=== PATIENT | male | born 1955 | race Caucasian/White ===

== ENCOUNTER 2020-04-29 20:23 | Emergency (ER) | payer MEDICARE, BC ==
[2020-04-29 20:36] VITALS: BP 162/86; PULSE 120
--- NOTE | 2020-04-29 20:53 | EDM.PDOC ---
ED HPI GENERAL MEDICAL PROBLEM - General Chief Complaint: Fever Stated Complaint: FEVER SHAKEY COLD Time Seen by Provider: 04/29/20 20:47 Source of Information: Reports: Patient History Limitations: Reports: No Limitations - History of Present Illness INITIAL COMMENTS - FREE TEXT/NARRATIVE: 65-year-old male presents to the ED with acute onset of fever chills with rigors darting about 1600 hrs. today and occurring just before coming into the ED once again. Associated development of high fever greater than 101.5 degrees at home. He has had Tylenol once today about noon hour. History suggest that he is currently being treated for a lymphoma. Apparently it is in his brain. Most of the history was gleaned from his who was in the car in the parking lot. Patient states that he cannot remember all of the big fancy medical words. History suggest that he has had 2 courses of methotrexate intravenously while in hospital at [facility] over the last month. On the last occasion he spent 14 days in hospital because of development of severe pancytopenia. This unclear if he developed any sepsis at that time. It is unclear if he was treated with antibiotics or not. We will obtain records from [facility] in [place]. His oncologist is Dr. Mccabe. Patient denies any cough or sputum production. He states his throat is mildly dry but not sore. Benign abdominal examination. Denies any dysuria urgency or frequency. Denies any diarrhea. Appetite remains fair. It is unclear when he was released from [facility] in [place] but it sounds like within the last week. She reports most of his treatments were carried out in [facility] in [place]. He is most least recent treatment was at [facility] I believe that April 23. Onset: Today, Sudden Onset Date: 04/29/20 Onset Time: 16:00 (New onset of chills/rigors with spiking a fever afterwards.) Duration: Hour(s):, Getting Worse, Recurring Location: Reports: Generalized (New onset of chills/rigors associated with a temperature greater than 101.5. Patient has been recently hospitalized at [facility] for about 2 weeks. Apparently he developed methotrexate induced pancytopenia.) Quality: Reports: Other Severity: Moderate (Feels a little weak.) Improves with: Reports: None Worsens with: Reports: None Context: Reports: Other (Early receiving methotrexate therapy for lymphoma in his brain. Most likely this is a non-Hodgkin's lymphoma.). Denies: Activity, Exercise, Lifting, Sick Contact, Trauma Associated Symptoms: Reports: Confusion (Mildly confused about dates times of treatment when he was last hospitalized), Fever/Chills (1600 hrs. today.), Malaise, Weakness. Denies: Chest Pain ( and states he cannot member what kind of cancer he has.), Cough, cough w sputum, Diaphoresis, Loss of Appetite, Nausea/Vomiting, Rash, Seizure, Shortness of Breath, Syncope Treatments DIESEL ELECTRICIAN: Reports: Acetaminophen, Other (see below) Other Treatments DIESEL ELECTRICIAN: tylenol at noon Headache Pain Score (Numeric/FACES): 4 - Related Data Allergies Allergy/AdvReac Type Severity Reaction Status Date / Time No Known Allergies Allergy Verified 11/05/14 17:17 Home Meds: Home Meds Multivit-Min/FA/Lycopene/Lut [Centrum Silver] 1 tab PO DAILY 11/05/14 [History] Omeprazole Magnesium [Prilosec Otc] 20 mg PO DAILY 11/05/14 [History] levoFLOXacin [Levaquin] 500 mg PO DAILY #9 tab 04/29/20 [Rx] Past Medical History - Past Health History Medical/Surgical History: Denies Medical/Surgical History Gastrointestinal History: Reports: Cirrhosis (Alcohol induced cirrhosis of the liver.), GERD Oncologic (Cancer) History: Reports: Other (See Below) (Patient has a large B cell lymphoma. Initially in January he had involvement of the meninges of it around his brain. Apparently he also has retroperitoneal adenopathy. He apparently has had a biopsy of periaortic lymph nodes to confirm diagnosis of B- cell lymphoma. Started chemotherapy in early March 2020) Social & Family History - Tobacco Use Smoking Status *Q: Never Smoker - Caffeine Use Caffeine Use: Reports: Soda - Recreational Drug Use Recreational Drug Use: No - Living Situation & Occupation Living situation: Reports: Occupation: Retired ED ROS GENERAL - Review of Systems Review Of Systems: See Below Constitutional: Reports: Fever, Chills, Malaise, Weakness, Fatigue, Decreased Appetite, Weight Loss HEENT: Reports: Glasses Respiratory: Denies: Shortness of Breath (For reading.), Wheezing, Pleuritic Chest Pain, Cough, Sputum Cardiovascular: Denies: Chest Pain, Blood Pressure Problem, Dyspnea on Exertion, Edema, Lightheadedness, Palpitations Endocrine: Reports: Fatigue GI/Abdominal: Reports: Decreased Appetite. Denies: Constipation, Diarrhea, Distension (Is a decreased appetite today. Up until today has been good.), Flatus, Hematemesis, Hematochezia, Melena, Stool Incontinence, Vomiting, Other : Reports: No Symptoms Musculoskeletal: Reports: No Symptoms Skin: Reports: No Symptoms Neurological: Reports: No Symptoms Psychiatric: Reports: No Symptoms Hematologic/Lymphatic: Reports: No Symptoms Immunologic: Reports: No Symptoms ED EXAM, SEPSIS - Physical Exam Exam: See Below Exam Limited By: Other General Appearance: Alert, WD/WN, No Apparent Distress, Other (Patient does feel very warm to palpation. Measured temperature is 38.5 C. Heart rate at the bedside is 120. Respiratory to 30 with O2 sat of 100%. BP is 1 6286.). No: Anxious, Lethargic, Obtunded, Moderate Distress, Severe Distress, Obese, Thin Eye Exam: Bilateral Eye: Normal Inspection, PERRL (No scleral icterus or blepharal pallor appreciated.) Ears: Normal TMs Throat/Mouth: Normal Inspection, Normal Lips, Normal Teeth, Normal Oropharynx Head: Atraumatic, Normocephalic Neck: Normal Inspection, Supple, Non-Tender, Full Range of Motion. No: Lymphadenopathy (L), Lymphadenopathy (R), Thyromegaly Respiratory/Chest: Lungs Clear (Tachypnea at rest 30/min. O2 sats are maintained at 100% on room air.), Respiratory Distress, Decreased Breath Sounds Cardiovascular: Normal Peripheral Pulses, Regular Rate, Rhythm, No Edema, No Gallop, No Murmur, No Rub Peripheral Pulses: 3+: Carotid (L), Carotid (R), Posterior Tibial (L), Posterior Tibial (R), Dorsalis Pedis (L), Dorsalis Pedis (R) GI/Abdominal Exam: Normal Bowel Sounds, Soft, Non-Tender, No Organomegaly, No Abnormal Bruit, No Mass, Pelvis Stable, Other (Patient has evidence of a recent laparoscopic surgery. He indicates that he had retroperitoneal lymph node biopsy carried out within the last 6 to 8 weeks.). No: Guarding, Rigid, Rebound, Tender, Hepatomegaly, Splenomegaly Back: Normal Inspection, Full Range of Motion. No: CVA Tenderness (L), CVA T enderness (R) Extremities: Normal Inspection, Normal Range of Motion, Non-Tender, No Pedal Edema, Other (Patient has a PICC line medial aspect of his right arm. The site looks clean without any signs of cellulitis at insertion of the needle site.) Neurological: Alert, Oriented, CN II-XII Intact, Normal Cognition, No Motor/Sensory Deficits Psychiatric: Normal Affect, Normal Mood, Other (Pleasant gentleman. He is just forgetful about everything that has happened to him over the last several weeks due to severe illness with pancytopenia and) Skin: Warm ( prolonged hospitalization.), Dry, Intact, Normal Color, No Rash EKG INTERPRETATION EKG Date: 04/29/20 Time: 21:10 Rhythm: Other Rate (Beats/Min): 114 Fraser: LAD-Left Fraser Deviation (Left axis deviation of -27 degrees.) P-Wave: Present QRS: Other (There is early R wave transition consider right ventricular hypertrophy/septal hypertrophy pattern. Tall R waves in lead I suggest left ventricular hypertrophy.) ST-T: Other (T wave inversion 3 which can be normal and flattening in aVF which is nonspecific.) QT: Prolonged (Mildly prolonged.) Course - Vital Signs Last Recorded V/S: Last Vital Signs Temp 38.0 C 04/29/20 21:23 Pulse 120 H 04/29/20 20:34 Resp 30 H 04/29/20 20:34 BP 162/86 H 04/29/20 20:34 Pulse Ox 100 04/29/20 20:34 - Orders/Labs/Meds Orders: Active Orders 24 hr Category Date Time Status EKG Documentation Completion [RC] STAT Care 04/29/20 20:56 Active CULTURE BLOOD [BC] Stat Lab 04/29/20 21:15 Received CULTURE BLOOD [BC] Stat Lab 04/29/20 21:28 Received CULTURE URINE [RM] Stat Lab 04/29/20 21:30 Received Dextrose 5%-0.9% NaCl [Dextrose 5%-Normal Saline] 1,000 Med 04/29/20 21:00 Active ml IV ASDIRECTED Blood Culture x2 Reflex Set [OM.PC] Stat Oth 04/29/20 20:57 Ordered Medication Orders Dextrose/Sodium Chloride (Dextrose 5%-Normal Saline) 1,000 mls @ 500 mls/hr IV ASDIRECTED CHRISTA Last Admin: 04/29/20 21:24 Dose: 500 mls/hr Documented by: PUJA Labs: Laboratory Tests 04/29/20 04/29/20 04/29/20 Range/Units 21:15 21:15 21:15 WBC 2.08 L* (4.23-9.07) K/mm3 RBC 2.70 L (4.63-6.08) M/mm3 Hgb 8.8 L D (13.7-17.5) gm/dl Hct 26.2 L (40.1-51.0) % MCV 97.0 H (79.0-92.2) fl MCH 32.6 H (25.7-32.2) pg MCHC 33.6 (32.2-35.5) g/dl RDW Std Deviation 50.0 H (35.1-43.9) fL Plt Count 31 L (163-337) K/mm3 MPV 11.7 (9.4-12.3) fl Neutrophils % (Manual) 98 H (40-60) % Band Neutrophils % 0 (0-10) % Lymphocytes % (Manual) 2 L (20-40) % Atypical Lymphs % 0 % Monocytes % (Manual) 0 L (2-10) % Eosinophils % (Manual) 0 L (0.8-7.0) % Basophils % (Manual) 0 L (0.2-1.2) Toxic Granulation 3+ marked Platelet Estimate Marked dec Plt Morphology Comment Normal Hypochromasia 1+ slight Anisocytosis 1+ slight RBC Morph Comment Not Reportable ESR (0-15) mm/hr PT 13.8 H (9.7-11.7) SECONDS INR 1.30 APTT 29 (22-31) SECONDS D-Dimer, Quantitative (0.19-0.50) mg/L Sodium 138 (136-145) mEq/L Potassium 3.2 L (3.5-5.1) mEq/L Chloride 105 (98-107) mEq/L Carbon Dioxide 22 (21-32) mEq/L Anion Gap 14.2 (5-15) BUN 22 H (7-18) mg/dL Creatinine 1.0 (0.7-1.3) mg/dL Est Cr Clr Drug Dosing 74.01 mL/min Estimated GFR (MDRD) > 60 (>60) mL/min BUN/Creatinine Ratio 22.0 H (14-18) Glucose 108 (80-115) mg/dL Lactic Acid (0.4-2.0) mmol/L Uric Acid (3.5-7.2) mg/dL Calcium 7.9 L (8.5-10.1) mg/dL Magnesium 1.7 L (1.8-2.4) mg/dl Ferritin (26-388) ng/ml Total Bilirubin 1.3 H (0.2-1.0) mg/dL AST 26 (15-37) U/L ALT 20 (16-63) U/L Alkaline Phosphatase 92 (46-116) U/L Lactate Dehydrogenase 266 H (85-227) U/L Troponin I 0.019 (0.00-0.056) ng/mL C-Reactive Protein 6.5 H* (<1.0) mg/dL NT-Pro-B Natriuret Pep (0-125) pg/mL Total Protein 6.0 L (6.4-8.2) g/dl Albumin 2.8 L (3.4-5.0) g/dl Globulin 3.2 gm/dL Albumin/Globulin Ratio 0.9 L (1-2) Urine Color (Yellow) Urine Appearance (Clear) Urine pH (5.0-8.0) Ur Specific Mclain (1.005-1.030) Urine Protein (Negative) Urine Glucose (UA) (Negative) Urine Ketones (Negative) Urine Occult Blood (Negative) Urine Nitrite (Negative) Urine Bilirubin (Negative) Urine Urobilinogen (0.2-1.0) Ur Leukocyte Esterase (Negative) U Hyaline Cast (Auto) (0-5) /lpf Urine RBC (0-5) /hpf Urine WBC (0-5) /hpf Ur Epithelial Cells (0-5) /hpf Urine Bacteria (FEW) /hpf Urine Mucus (FEW) /hpf SARS-CoV-2 RNA (FELICITY) (NEGATIVE) 04/29/20 04/29/20 04/29/20 Range/Units 21:15 21:15 21:15 WBC (4.23-9.07) K/mm3 RBC (4.63-6.08) M/mm3 Hgb (13.7-17.5) gm/dl Hct (40.1-51.0) % MCV (79.0-92.2) fl MCH (25.7-32.2) pg MCHC (32.2-35.5) g/dl RDW Std Deviation (35.1-43.9) fL Plt Count (163-337) K/mm3 MPV (9.4-12.3) fl Neutrophils % (Manual) (40-60) % Band Neutrophils % (0-10) % Lymphocytes % (Manual) (20-40) % Atypical Lymphs % % Monocytes % (Manual) (2-10) % Eosinophils % (Manual) (0.8-7.0) % Basophils % (Manual) (0.2-1.2) Toxic Granulation Platelet Estimate Plt Morphology Comment Hypochromasia Anisocytosis RBC Morph Comment ESR (0-15) mm/hr PT (9.7-11.7) SECONDS INR APTT (22-31) SECONDS D-Dimer, Quantitative 5.12 H (0.19-0.50) mg/L Sodium (136-145) mEq/L Potassium (3.5-5.1) mEq/L Chloride (98-107) mEq/L Carbon Dioxide (21-32) mEq/L Anion Gap (5-15) BUN (7-18) mg/dL Creatinine (0.7-1.3) mg/dL Est Cr Clr Drug Dosing mL/min Estimated GFR (MDRD) (>60) mL/min BUN/Creatinine Ratio (14-18) Glucose (80-115) mg/dL Lactic Acid 1.7 (0.4-2.0) mmol/L Uric Acid (3.5-7.2) mg/dL Calcium (8.5-10.1) mg/dL Magnesium (1.8-2.4) mg/dl Ferritin 984 H (26-388) ng/ml Total Bilirubin (0.2-1.0) mg/dL AST (15-37) U/L ALT (16-63) U/L Alkaline Phosphatase (46-116) U/L Lactate Dehydrogenase (85-227) U/L Troponin I (0.00-0.056) ng/mL C-Reactive Protein (<1.0) mg/dL NT-Pro-B Natriuret Pep (0-125) pg/mL Total Protein (6.4-8.2) g/dl Albumin (3.4-5.0) g/dl Globulin gm/dL Albumin/Globulin Ratio (1-2) Urine Color (Yellow) Urine Appearance (Clear) Urine pH (5.0-8.0) Ur Specific Mclain (1.005-1.030) Urine Protein (Negative) Urine Glucose (UA) (Negative) Urine Ketones (Negative) Urine Occult Blood (Negative) Urine Nitrite (Negative) Urine Bilirubin (Negative) Urine Urobilinogen (0.2-1.0) Ur Leukocyte Esterase (Negative) U Hyaline Cast (Auto) (0-5) /lpf Urine RBC (0-5) /hpf Urine WBC (0-5) /hpf Ur Epithelial Cells (0-5) /hpf Urine Bacteria (FEW) /hpf Urine Mucus (FEW) /hpf SARS-CoV-2 RNA (FELICITY) (NEGATIVE) 04/29/20 04/29/20 04/29/20 Range/Units 21:15 21:15 21:15 WBC (4.23-9.07) K/mm3 RBC (4.63-6.08) M/mm3 Hgb (13.7-17.5) gm/dl Hct (40.1-51.0) % MCV (79.0-92.2) fl MCH (25.7-32.2) pg MCHC (32.2-35.5) g/dl RDW Std Deviation (35.1-43.9) fL Plt Count (163-337) K/mm3 MPV (9.4-12.3) fl Neutrophils % (Manual) (40-60) % Band Neutrophils % (0-10) % Lymphocytes % (Manual) (20-40) % Atypical Lymphs % % Monocytes % (Manual) (2-10) % Eosinophils % (Manual) (0.8-7.0) % Basophils % (Manual) (0.2-1.2) Toxic Granulation Platelet Estimate Plt Morphology Comment Hypochromasia Anisocytosis RBC Morph Comment ESR 18 H (0-15) mm/hr PT (9.7-11.7) SECONDS INR APTT (22-31) SECONDS D-Dimer, Quantitative (0.19-0.50) mg/L Sodium (136-145) mEq/L Potassium (3.5-5.1) mEq/L Chloride (98-107) mEq/L Carbon Dioxide (21-32) mEq/L Anion Gap (5-15) BUN (7-18) mg/dL Creatinine (0.7-1.3) mg/dL Est Cr Clr Drug Dosing mL/min Estimated GFR (MDRD) (>60) mL/min BUN/Creatinine Ratio (14-18) Glucose (80-115) mg/dL Lactic Acid (0.4-2.0) mmol/L Uric Acid 3.7 (3.5-7.2) mg/dL Calcium (8.5-10.1) mg/dL Magnesium (1.8-2.4) mg/dl Ferritin (26-388) ng/ml Total Bilirubin (0.2-1.0) mg/dL AST (15-37) U/L ALT (16-63) U/L Alkaline Phosphatase (46-116) U/L Lactate Dehydrogenase (85-227) U/L Troponin I (0.00-0.056) ng/mL C-Reactive Protein (<1.0) mg/dL NT-Pro-B Natriuret Pep 1651 H (0-125) pg/mL Total Protein (6.4-8.2) g/dl Albumin (3.4-5.0) g/dl Globulin gm/dL Albumin/Globulin Ratio (1-2) Urine Color (Yellow) Urine Appearance (Clear) Urine pH (5.0-8.0) Ur Specific Mclain (1.005-1.030) Urine Protein (Negative) Urine Glucose (UA) (Negative) Urine Ketones (Negative) Urine Occult Blood (Negative) Urine Nitrite (Negative) Urine Bilirubin (Negative) Urine Urobilinogen (0.2-1.0) Ur Leukocyte Esterase (Negative) U Hyaline Cast (Auto) (0-5) /lpf Urine RBC (0-5) /hpf Urine WBC (0-5) /hpf Ur Epithelial Cells (0-5) /hpf Urine Bacteria (FEW) /hpf Urine Mucus (FEW) /hpf SARS-CoV-2 RNA (FELICITY) (NEGATIVE) 04/29/20 04/29/20 Range/Units 21:20 21:30 WBC (4.23-9.07) K/mm3 RBC (4.63-6.08) M/mm3 Hgb (13.7-17.5) gm/dl Hct (40.1-51.0) % MCV (79.0-92.2) fl MCH (25.7-32.2) pg MCHC (32.2-35.5) g/dl RDW Std Deviation (35.1-43.9) fL Plt Count (163-337) K/mm3 MPV (9.4-12.3) fl Neutrophils % (Manual) (40-60) % Band Neutrophils % (0-10) % Lymphocytes % (Manual) (20-40) % Atypical Lymphs % % Monocytes % (Manual) (2-10) % Eosinophils % (Manual) (0.8-7.0) % Basophils % (Manual) (0.2-1.2) Toxic Granulation Platelet Estimate Plt Morphology Comment Hypochromasia Anisocytosis RBC Morph Comment ESR (0-15) mm/hr PT (9.7-11.7) SECONDS INR APTT (22-31) SECONDS D-Dimer, Quantitative (0.19-0.50) mg/L Sodium (136-145) mEq/L Potassium (3.5-5.1) mEq/L Chloride (98-107) mEq/L Carbon Dioxide (21-32) mEq/L Anion Gap (5-15) BUN (7-18) mg/dL Creatinine (0.7-1.3) mg/dL Est Cr Clr Drug Dosing mL/min Estimated GFR (MDRD) (>60) mL/min BUN/Creatinine Ratio (14-18) Glucose (80-115) mg/dL Lactic Acid (0.4-2.0) mmol/L Uric Acid (3.5-7.2) mg/dL Calcium (8.5-10.1) mg/dL Magnesium (1.8-2.4) mg/dl Ferritin (26-388) ng/ml Total Bilirubin (0.2-1.0) mg/dL AST (15-37) U/L ALT (16-63) U/L Alkaline Phosphatase (46-116) U/L Lactate Dehydrogenase (85-227) U/L Troponin I (0.00-0.056) ng/mL C-Reactive Protein (<1.0) mg/dL NT-Pro-B Natriuret Pep (0-125) pg/mL Total Protein (6.4-8.2) g/dl Albumin (3.4-5.0) g/dl Globulin gm/dL Albumin/Globulin Ratio (1-2) Urine Color Yellow (Yellow) Urine Appearance Clear (Clear) Urine pH 6.0 (5.0-8.0) Ur Specific Mclain 1.025 (1.005-1.030) Urine Protein Negative (Negative) Urine Glucose (UA) Negative (Negative) Urine Ketones Negative (Negative) Urine Occult Blood Trace-intact H (Negative) Urine Nitrite Negative (Negative) Urine Bilirubin Negative (Negative) Urine Urobilinogen 0.2 (0.2-1.0) Ur Leukocyte Esterase 2+ H (Negative) U Hyaline Cast (Auto) 0-5 (0-5) /lpf Urine RBC 5-10 H (0-5) /hpf Urine WBC 40-50 H (0-5) /hpf Ur Epithelial Cells 0-5 (0-5) /hpf Urine Bacteria Few (FEW) /hpf Urine Mucus Few (FEW) /hpf SARS-CoV-2 RNA (FELICITY) Negative (NEGATIVE) Meds: Medications Generic Name Dose Route Start Last Admin Trade Name Freq PRN Reason Stop Dose Admin Dextrose/Sodium Chloride 1,000 mls @ 500 mls/hr 04/29/20 21:00 04/29/20 21:24 Dextrose 5%-Normal Saline IV 500 mls/hr ASDIRECTED CHRISTA Administration Discontinued Medications Generic Name Dose Route Start Last Admin Trade Name Roberta PRN Reason Stop Dose Admin Acetaminophen 975 mg 04/29/20 21:07 04/29/20 21:23 Tylenol PO 04/29/20 21:08 975 mg ONETIME ONE Administration Cefepime HCl 2 gm/ Premix 50 mls @ 100 mls/hr 04/29/20 22:11 04/29/20 22:44 IV 04/29/20 22:40 100 mls/hr ONETIME ONE Administration Levofloxacin 500 mg 04/29/20 23:22 Levaquin PO 04/29/20 23:23 ONETIME ONE - Radiology Interpretation Free Text/Narrative:: 65-year-old male presents to the ED with acute onset of chills and rigors about 1600 hrs. today and again just before coming into the ED. Temperature at home was greater than 101.5. It is 38.5 degrees in the ED. He has a PICC line in his right medial arm that is being used apparently for chemotherapy. The history suggest he has a lymphoma of the brain. This has made him somewhat confused about what kind of cancer that he has. His fills in the blanks and indicates that he has been receiving methotrexate intravenously for lymphoma in his brain. Initially was in hospital for 1 week in the early part of March. He subsequently was hospitalized for 2 weeks in the month of April after he developed severe pancytopenia after methotrexate IV infusion. He indicates that his appetite is been pretty good up until today. Patient was receiving antibiotics while hospitalized and [place]. He has no idea what he received. His only medications now are omeprazole once daily. On examination he is febrile with a temperature of 38.5. Given Tylenol 9 7 5 mg p.o. Septic work-up will be undertaken with a lactic acid. IV will be D5 LR at 500 mils per hour. We will have a blood culture drawn from his PICC line as well as one peripherally. Covid 19 -screen will be carried out as well. - Re-Assessments/Exams Free Text/Narrative Re-Assessment/Exam: 04/29/20 21:41 chest x-ray done portably reveals mild cardiomegaly felt to be accentuated from portable technique. Tortuous thoracic aorta is appreciated. Lungs are clear with no acute parenchymal changes. Bony structures are grossly intact. 04/29/20 21:56's notes have arrived from [facility] in [place]. It appears that he was discharged home from the hospital on April 23. 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 The findings on the MRI of the brain revealed a 0.9 x 0.5 cm homogeneously enhancing mass in the right IAC likely an acoustic neuroma stable since 08/10/2019. Mild subcortical and periventricular chronic small vessel ischemic disease appreciated. No other abnormal signal, mass-effect, enhancement or restricted diffusion appreciated. Ventricles are normal in size. Posterior fossa is otherwise normal normal orbits and paranasal sinuses are clear. I have a lab report from 24 April. LDH was elevated at 282. White count was 3.1 with hemoglobin of 10.1 and hematocrit of 28.7 platelet count was 96,000 again obtained on 24 April. Neutrophil count was 2201. Absolute neutrophil count was 2.2. Glucose glucose was 98 BUN was 10 with a creatinine of 1.0. Sodium 142 potassium 3.6 chloride 110 bicarb 22. Anion gap 14. Calcium was 8.6. Total protein was 6.5 with an albumin fraction of 3.0. Liver function normal. Corrected calcium was 9.1. Suggest the patient developed a acute renal failure and anemia and thrombocytopenia after methotrexate infusion. He has a central nervous system lymphoma type B. Known to have cirrhosis of the liver. Diffuse large B-cell lymphoma. They identified confusion at that time with a noted brain lesion which is an acoustic neuroma on the MRI. Cirrhosis is felt to be due to alcoholism without any evidence of ascites. The patient has been getting attenuated doses of vincristine 1 mg along with prednisone and rituximab in addition to the high-dose methotrexate prior to this because of liver failure.Primary treatment is R-CHOP--with the addition of IV Methotrexate. After this he received a full dose of Adriamycin and Cytoxan. He had an echo done on 21 February which showed an ejection fraction of 55%. Of note the report I recieved is dated 24 April 2020. The plan is every other cycle he will get rituximab plus methotrexate. That is not until cycle #4. Patient is to be reviewed 1 week post infusion which would be coming up this ne xt week. He had a long hospitalization because of a delay in clearing his methotrexate while in [place]. Last methotrexate level on was 0.1. Previous MRI of the brain on March 01 showed extensive left meningeal disease. PET scan dated 19 April 2020 revealed interval retroperitoneal lymphadenectomy. Hypermetabolic left inguinal lymph node is no longer visualized. No residual or recurrent appearing FDG avid lymphadenopathy. New loculated appearing fluid collection in the right periaortic position probably is a postsurgical seroma. Stable focal uptake within the hepatic flexure of the colon indeterminate for a focal colonic lesion. Low-attenuation changes throughout the anterior right hepatic lobe are new from 02/15/2020 gallstones appreciated consider abdomen pelvis CT. Does have left colonic diverticula. PICC line right arm. This enters into the superior vena cava. Trace amount of fluid in the pelvis. 04/29/20 22:08 Blood cell count is 2.08 differential pending. Hemoglobin is 8.8 with hematocrit of 26.2. MCV is elevated at 97.0. Platelet count is very low at 31,000. Urine is yellow in color trace of occult blood 2+ leukocyte esterase with 5-10 RBCs and 40-50 WBCs per high-power field urine culture has been ordered. 04/29/20 22:37 WBC differential shows 98% neutrophils. No bands cells appreciated. Slid does show 3+ marked toxic granulation pattern. 1+ hypochromasia 1+ anisocytosis .Sed rate is 18. D-dimer is elevated at 5.12. Sodium 138 with a potassium low at 3.2. Chloride 105 with a bicarb of 22. Anion gap is 14.2 BUN is 22 with a creatinine of 1.0 and a GFR greater than 60. Glucose 108 with a lactic acid of 1.7. Uric acid 3.7. Calcium is slightly low at 37.9. Magnesium slightly low at 1.7. Serum ferritin elevated at 984. Total bilirubin is 1.3 liver function is otherwise normal LDH is elevated at 266. C-reactive protein is elevated at 6.5. BNP is elevated at 1651. Total protein is 6.0 with an albumin fraction of 2.8. COVID-19 screen pending. His O2 sats remain 98- 100% on room air. Lab markers for COVID-19 are all elevated. COVID-19 test is supposed to be available in approximately 14 minutes. 04/29/20 23:00 PT is elevated at 13.8 with an INR of 1.30 and PTT of 29. His elevated INR is likely due to cirrhosis of the liver. 04/29/20 23:05 Covid - 19 screen came back negative. 04/29/20 23:23 I did speak through the 1 call nurse at [facility] in [place] with Dr. Mccabe. Patient believes he has an appointment to see Dr. Mccabe either Thursday or Thursday of this coming week. His primary treatment actually was at [facility]. He does admit that he did have a Preciado catheter placed while hospitalized there. The timing of this is unclear. At any rate Dr. Mccabe suggested Levaquin 500 mg once daily in addition to the cefepime that I gave him. Patient is feeling well and he is afebrile at this point time. He will be discharged on Levaquin 500 mg once daily for another 9 days to clear up potential pyelonephritis. Also discussed the findings with the patient's -ang[place]. She indicates that most of his treatment has been carried out in [place] in [place] and that is why we do not have up-to-date complete notes and Dr. Mccabe does not have a full recollection of the details of his treatment plan either. Patient has had a laparoscopic lymph node biopsy done within the last 2 months at which time a Preciado catheter was placed after surgery as he was unable to void after the surgery. Is unclear how long the catheter was in but it sounds like it is remote from development of a possible UTI at this time. Plan will be to discharge the patient home has he is afebrile now. He has an appointment to see Liz Mccabe's PA on Thursday here in [place] at which time have scheduled lab work done. Continue Tylenol as needed for fever relief. 04/29/20 23:42 Departure - Departure Time of Disposition: 23:31 Disposition: Home, Self-Care 01 Condition: Fair Clinical Impression: Fever and chills, Lymphopenia, Thrombocytopenia, Mild congestive heart failure, Hypokalemia due to inadequate potassium intake, Elevated INR (international normalized ratio) B-cell lymphoma of intrapelvic lymph nodes Qualifiers: B-cell lymphoma type: diffuse large B-cell Qualified Code(s): C83.36 - Diffuse large B-cell lymphoma, intrapelvic lymph nodes Urinary tract infection Qualifiers: Urinary tract infection type: site unspecified Hematuria presence: without hematuria Qualified Code(s): N39.0 - Urinary tract infection, site not specified Anemia Qualifiers: Anemia type: other cause Other causes of anemia: antineoplastic chemotherapy Qualified Code(s): D64.81 - Anemia due to antineoplastic chemotherapy; T45.1X5A - Adverse effect of antineoplastic and immunosuppressive drugs, initial encounter - Discharge Information *PRESCRIPTION DRUG MONITORING PROGRAM REVIEWED*: Not Applicable *COPY OF PRESCRIPTION DRUG MONITORING REPORT IN PATIENT DIANA: Not Applicable Prescriptions: levoFLOXacin [Levaquin] 500 mg PO DAILY #9 tab Instructions: Fever, Adult, Urinary Tract Infection, Adult, Antibiotic Medicine, Adult Referrals: Sidney Romano MD [Primary Care Provider] - Forms: ED Department Discharge Additional Instructions: Evaluation in the emergency room tonight in regards to development of acute onset of high fever after experiencing chills and the shakes which we call rigors. She will event occurred about 1600 hrs. today and a second event just before coming into the ED tonight. You did not have a indeed have a fever of 101.5 degrees in the emergency room. Chest x-ray proved to be negative for any signs of infection. Lab work reveals that you still have a low white count at 2.08. Blood work also shows you are anemic with a hemoglobin of 8.8 and you were 10.1 on the . Platelet count is also dropped to 31,000 from recent chemotherapy. Labs also revealed evidence of a urinary tract infection with 40- 50 white blood cells per high-power field. Full cultures of the blood and urine were obtained. Markers for COVID-19 were identified in your blood and therefore a COVID-19 test was carried out. It was negative for COVID-19 illness. You were received a dose of antibiotic cefepime 2 g while in the emergency room for urinary tract infection. This is a broad-spectrum antibiotic that would cover most infections. You are to start Levaquin 500 mg once daily every night at bedtime for the next 9 days. First tablet was given in the emergency room tonight. Follow-up is required with Dr. Mccabe's PA on Thursday as planned with repeat repeat blood work at that time. Continue Tylenol 650 mg every 4-6 hours as necessary for relief of fever. Return to emergency room if you continue to have fever and chills greater than 12 hours from now. Also you would need to return if you have any spontaneous bleeding from your nose gums noted blood in the urinary tract or in the stool. Sepsis Event Note (ED) - Evaluation Sepsis Screening Result: No Definite Risk - Focused Exam Vital Signs: Vital Signs Temp Temp Pulse Resp BP Pulse Ox 04/29/20 21:23 38.0 C 04/29/20 20:34 38.5 C H 120 H 30 H 162/86 H 100 - My Orders Last 24 Hours: My Active Orders 04/29/20 20:56 EKG Documentation Completion [RC] STAT 04/29/20 20:57 Blood Culture x2 Reflex Set [OM.PC] Stat 04/29/20 21:00 Dextrose 5%-0.9% NaCl [Dextrose 5%-Normal Saline] 1,000 ml IV ASDIRECTED 04/29/20 21:15 CULTURE BLOOD [BC] Stat 04/29/20 21:28 CULTURE BLOOD [BC] Stat 04/29/20 21:30 CULTURE URINE [RM] Stat - Assessment/Plan Last 24 Hours: My Active Orders 04/29/20 20:56 EKG Documentation Completion [RC] STAT 04/29/20 20:57 Blood Culture x2 Reflex Set [OM.PC] Stat 04/29/20 21:00 Dextrose 5%-0.9% NaCl [Dextrose 5%-Normal Saline] 1,000 ml IV ASDIRECTED 04/29/20 21:15 CULTURE BLOOD [BC] Stat 04/29/20 21:28 CULTURE BLOOD [BC] Stat 04/29/20 21:30 CULTURE URINE [RM] Stat
[2020-04-29] MEDS ORDERED: Dextrose 5%-0.9% NaCl 1,000 ML IV SCH (21:00)
[2020-04-29] MEDS ORDERED: Acetaminophen 325 MG Tab PO ONE (21:07)
--- NOTE | 2020-04-29 21:36 | CR ---
Chest: Portable view of the chest was obtained. Comparison: Prior chest x-ray of 11/06/14. Heart size is somewhat prominent but felt to be accentuated from portable technique. Tortuous thoracic aorta is seen. Lungs are clear with no acute parenchymal change. Bony structures are grossly intact. Impression: 1. Nothing acute is appreciated on portable chest x-ray. Diagnostic code #2 This report was dictated in MDT
[2020-04-29] MEDS ORDERED: Cefepime 2 GM in Premix Bag 1 BAG IV ONE (22:11)
[2020-04-29] MEDS ORDERED: Levofloxacin 250 MG Tab PO ONE (23:22)
== END 2020-04-29 23:40 | disposition home or self-care (01) ==
LOC: JD.ED 20:23
DX: C83.36 Diffuse large B-cell lymphoma, intrapelvic lymph nodes (principal); D69.6 Thrombocytopenia, unspecified; D72.810 Lymphocytopenia; I50.9 Heart failure, unspecified; E87.6 Hypokalemia; R79.1 Abnormal coagulation profile; N39.0 Urinary tract infection, site not specified; D64.81 Anemia due to antineoplastic chemotherapy; T45.1X5A Adverse effect of antineoplastic and immunosuppressive drugs, initial encounter; Z20.828 Contact with and (suspected) exposure to other viral communicable diseases; R50.9 Fever, unspecified
CPT/HCPCS: 36415; 71045; 80053; 81001; 82728; 83605; 83615; 83735; 83880; 84484; 84550; 85007; 85027; 85379; 85610; 85652; 85730; 86140; 87040; 87077; 87086; 87088; 87184; 87186; 93005; 96361; 96365; 99284; A9270; J0692; J7042; U0002; 93010; 99285

== ENCOUNTER 2020-05-23 15:09 | Emergency (ER) | payer MEDICARE, BC ==
--- NOTE | 2020-05-23 16:07 | EDM.PDOC ---
ED HPI GENERAL MEDICAL PROBLEM - General Chief Complaint: General Stated Complaint: SKIN COMPLAINT Time Seen by Provider: 05/23/20 16:03 Source of Information: Reports: Patient History Limitations: Reports: No Limitations - History of Present Illness INITIAL COMMENTS - FREE TEXT/NARRATIVE: 65-year-old male presents to the ED at the request of his oncologist physician night assistant. Patient is known to have a large B cell lymphoma and is being treated aggressively with chemotherapy for this. Last treatment with chemo was on 16 May. Fairly he has had brain involvement with the lymphoma. Received initial treatments in [facility] in [place] but developed complications of methotrexate intravenously with severe bone marrow suppression. He spent 14 days in the hospital because of development of severe pancytopenia I believe late January early March. He is sent to the hospital today due to the development overnight of a palpable purpura over both anterior knees without any trauma or falls. It also has identified posterior to the left knee and both areas are very warm to palp palpation suggesting an underlying inflammation/infection. He is also developed a tender mass in the right side of his neck inferior to his ear and would be in zone 3 of the neck measuring approximately 8 cm x 4 cm slightly erythematous and tender to touch. It appears to be a abscess. Patient is febrile. He last took Tylenol about an hour and a half prior to coming to the hospital. He denies nausea vomiting or diarrhea. Has a mild tickle in his throat and cough. He was last seen through the ED by me on 30 April and was septic at that time with a urinary tract infection treated with intravenous cefepime and oral O'Geovanny 500 mg daily for another 9 days. He is otherwise alert oriented and answers all questions appropriately. Onset: Sudden Onset Date: 05/22/20 (Developed palpable purpura both anterior knees and behind the left knee overnight which are mildly painful and a mass in his right lateral neck that seems to be enlarging rapidly.) Duration: Hour(s):, Getting Worse Location: Reports: Neck (Meant of an 8 x 4 cm mass inferior to the right ear zone 3 right side of neck), Generalized (Onset of acute febrile illness.), Other (Palpable purpura anterior aspect of both knees and anterior to the left knee in the popliteal fossa.) Quality: Reports: Ache, Throbbing, Other (Very warm to touch and painful) Severity: Severe Improves with: Reports: None Worsens with: Reports: Other (.) Context: Reports: Other (Patient is currently receiving chemotherapy for a B- cell lymphoma. His oncologist is Dr. Mccabe). Denies: Activity, Exercise, Lifting, Sick Contact, Trauma Associated Symptoms: Reports: Cough, Fever/Chills, Loss of Appetite, Malaise (Nonproductive), Weakness. Denies: Confusion, Chest Pain, cough w sputum, Diaphoresis, Headaches, Nausea/Vomiting, Rash, Seizure, Shortness of Breath, Syncope Treatments BEAD PICKER: Reports: Acetaminophen (He can about an hour and a half before coming to the ED.) - Related Data Allergies Allergy/AdvReac Type Severity Reaction Status Date / Time No Known Allergies Allergy Verified 05/23/20 15:44 Home Meds: Home Meds Ondansetron [Zofran ODT] 8 mg PO BID PRN 05/23/20 [History] Pantoprazole [ProTONIX] 40 mg PO BID 05/23/20 [History] Polyethylene Glycol [Polyox Wsr-301] 1 packet PO ASDIRECTED 05/23/20 [History] Potassium Chloride [Klor-Con] 20 meq PO DAILY 05/23/20 [History] Sennosides/Docusate Sodium [Senna Plus 8.6-50 mg Tablet] 1 tab PO BID PRN 05/23/20 [History] oxyCODONE 10 mg PO Q4HR PRN 05/23/20 [History] predniSONE [Prednisone] 100 mg PO ASDIRECTED 05/23/20 [History] Past Medical History - Past Health History Medical/Surgical History: Denies Medical/Surgical History HEENT History: Reports: Hard of Hearing Respiratory History: Reports: Pneumonia, Recurrent Gastrointestinal History: Reports: Cirrhosis, GERD Hematologic History: Reports: Anemia Immunologic History: Reports: Immunosuppression Oncologic (Cancer) History: Reports: Non-Hodgkin's Lymphoma, Other (See Below) Dermatologic History: Reports: Cellulitis Social & Family History - Tobacco Use Tobacco Use Status *Q: Never Tobacco User - Caffeine Use Caffeine Use: Reports: Coffee - Recreational Drug Use Recreational Drug Use: No - Living Situation & Occupation Living situation: Reports: Occupation: Retired ED ROS GENERAL - Review of Systems Review Of Systems: See Below Constitutional: Reports: Fever, Chills, Malaise, Weakness, Fatigue, Decreased Appetite HEENT: Reports: Other Respiratory: Reports: Shortness of Breath (By mouth), Cough. Denies: Wheezing, Pleuritic Chest Pain, Sputum, Hemoptysis (Occasional dry cough.) Cardiovascular: Reports: Dyspnea on Exertion, Lightheadedness. Denies: No Symptoms, Blood Pressure Problem, Claudication, Orthopnea Endocrine: Reports: Fatigue GI/Abdominal: Reports: Decreased Appetite. Denies: Abdominal Pain : Reports: Frequency Musculoskeletal: Reports: Neck Pain ( Pain right lateral neck with a mass formation over the last 24 hours), Other (Pain both knees and left popliteal fossa.) Skin: Reports: Other (Palpable purpura development both anterior knees without any known trauma which is very warm to palpation. Similarly palpable purpura left popliteal fossa) Neurological: Reports: Dizziness, Weakness. Denies: Confusion, Headache, Numbness, Syncope, Tingling Psychiatric: Reports: No Symptoms Hematologic/Lymphatic: Reports: No Symptoms Immunologic: Reports: No Symptoms ED EXAM, GENERAL - Physical Exam Exam: See Below Exam Limited By: No Limitations General Appearance: Alert, WD/WN, No Apparent Distress, Other (David is very warm to palpation. Nurses recorded initial temperature of 36.7 which is felt to be incorrect. Rectal temperature is 99.4 degrees. Heart rate was 120 at the bedside respiratory of 17 with O2 sats 100% room air BP 135/69.) Eye Exam: Bilateral Eye: Normal Inspection (Blepharal pallor. No scleral icterus.), PERRL Nose: Normal Inspection, Normal Mucosa, No Blood Throat/Mouth: Normal Inspection, Normal Lips, Normal Teeth, Normal Oropharynx (Is mildly dry and coated.), Other Head: Atraumatic, Normocephalic Neck: Normal Inspection, Other (And has developed a tender mass right posterior lateral neck in zone 3 inferior to his right ear measuring approximately 8 cm x 4 cm and again very warm to palpation. It is mobile and very tender suspicious for developing abscess under the skin). No: Lymphadenopathy (L) Respiratory/Chest: No Respiratory Distress, Decreased Breath Sounds (Breath sounds are mildly diminished to both posterior lung ornelas in the lower 20%.), Rales (Fine rales appreciated both lung bases on deep inspiration.). No: Respiratory Distress, Rhonchi, Wheezing Cardiovascular: Regular Rate, Rhythm, No Edema (Tachycardia at the bedside of 120/min. Sinus on the monitor.), No Gallop, No Murmur, No Rub, Tachycardia. No: Normal Peripheral Pulses Peripheral Pulses: 2+: Carotid (L), Carotid (R), Posterior Tibial (L), Posterior Tibial (R), Dorsalis Pedis (L), Dorsalis Pedis (R) GI/Abdominal: Normal Bowel Sounds, Soft, Non-Tender, No Organomegaly, No Abnormal Bruit, No Mass, Pelvis Stable, Other (Palpable mass identified) Back Exam: Normal Inspection, Full Range of Motion. No: CVA Tenderness (L), CVA Tenderness (R) Extremities: Other (Patient has swelling of both anterior knees with palpable purpura over the patellas and increased warmth to palpation. It is painful for him to flex and extend the knees. There is also palpable purpura in the soft tissue of the left popliteal fossa. These lesions are concerning for possible Neisseria meningiditis section.). No: Normal Inspection, Normal Range of Motion, Non-Tender Neurological: Alert, Oriented, CN II-XII Intact, Normal Cognition Psychiatric: Normal Affect, Normal Mood Skin Exam: Warm, Dry, Intact, Normal Color, No Rash #1 Interpretation EKG Date: 05/23/20 Time: 16:17 Rhythm: Other (Sinus tachycardia) Rate (Beats/Min): 123 [place]: LAD-Left [place] Deviation (-29 degrees) P-Wave: Present QRS: Other (There is decreased voltage throughout the precordial leads. There is early R wave transition consider right ventricular hypertrophy pattern) ST-T: Normal QT: Prolonged (Early prolonged) EKG Interpretation Comments: Borderline ECG Course - Vital Signs Last Recorded V/S: Last Vital Signs Temp 37.4 C 05/23/20 16:58 Pulse 70 05/23/20 16:58 Resp 17 05/23/20 15:35 BP 114/54 L 05/23/20 16:58 Pulse Ox 100 05/23/20 16:58 - Orders/Labs/Meds Orders: Active Orders 24 hr Category Date Time Status EKG Documentation Completion [RC] STAT Care 05/23/20 16:04 Active Chest 1V Frontal [CR] Stat Exams 05/23/20 16:03 Taken Soft Tissue Neck w Cont [CT] Stat Exams 05/23/20 16:30 Taken CULTURE BLOOD [BC] Stat Lab 05/23/20 16:25 Received CULTURE BLOOD [BC] Stat Lab 05/23/20 16:30 Received LACTATE SEPSIS W/ REFLEX [CHEM] Routine Lab 05/23/20 19:30 Ordered URINALYSIS W/MICROSCOPIC [UA W/MICROSCOPIC] [URIN] Stat Lab 05/23/20 16:05 Ordered Acetaminophen [TylenoL] Med 05/23/20 17:37 Active 650 mg PO Q4H PRN Dextrose 5%-0.9% NaCl [Dextrose 5%-Normal Saline] 1,000 Med 05/23/20 16:15 Active ml IV ASDIRECTED Sodium Chloride 0.9% [Saline Flush] Med 05/23/20 16:38 Active 10 ml FLUSH ONETIME PRN Blood Culture x2 Reflex Set [OM.PC] Stat Oth 05/23/20 16:04 Ordered Medication Orders Acetaminophen (Tylenol) 650 mg PO Q4H PRN PRN Reason: Pain Dextrose/Sodium Chloride (Dextrose 5%-Normal Saline) 1,000 mls @ 500 mls/hr IV ASDIRECTED CHRISTA Last Admin: 05/23/20 16:28 Dose: 500 mls/hr Documented by: AMARIS Sodium Chloride (Saline Flush) 10 ml FLUSH ONETIME PRN PRN Reason: Keep Vein Open Labs: Laboratory Tests 05/23/20 05/23/20 05/23/20 Range/Units 16:30 16:30 16:30 WBC 0.10 L* (4.23-9.07) K/mm3 RBC 2.27 L (4.63-6.08) M/mm3 Hgb 7.5 L (13.7-17.5) gm/dl Hct 22.1 L (40.1-51.0) % MCV 97.4 H (79.0-92.2) fl MCH 33.0 H (25.7-32.2) pg MCHC 33.9 (32.2-35.5) g/dl RDW Std Deviation 53.1 H (35.1-43.9) fL Plt Count 7 L* (163-337) K/mm3 Neutrophils % (Manual) 40 (40-60) % Band Neutrophils % 0 (0-10) % Lymphocytes % (Manual) 30 (20-40) % Atypical Lymphs % 0 % Monocytes % (Manual) 30 H (2-10) % Eosinophils % (Manual) 0 L (0.8-7.0) % Basophils % (Manual) 0 L (0.2-1.2) Platelet Estimate Marked dec Plt Morphology Comment See note Poikilocytosis 1+ slight Anisocytosis 1+ slight Spherocytes Few Ovalocytes 1+ slight [facility] [facility] Cells Few RBC Morph Comment Not Reportable ESR (0-15) mm/hr PT 19.9 H D (9.7-11.7) SECONDS INR 1.88 APTT 38 H (22-31) SECONDS Sodium 139 (136-145) mEq/L Potassium 4.0 (3.5-5.1) mEq/L Chloride 104 (98-107) mEq/L Carbon Dioxide 22 (21-32) mEq/L Anion Gap 17.0 H (5-15) BUN 29 H (7-18) mg/dL Creatinine 1.5 H (0.7-1.3) mg/dL Est Cr Clr Drug Dosing 44.68 mL/min Estimated GFR (MDRD) 47 (>60) mL/min BUN/Creatinine Ratio 19.3 H (14-18) Glucose 135 H (80-115) mg/dL Lactic Acid (0.4-2.0) mmol/L Calcium 8.3 L (8.5-10.1) mg/dL Magnesium 1.7 L (1.8-2.4) mg/dl Total Bilirubin 3.3 H (0.2-1.0) mg/dL AST 21 (15-37) U/L ALT 25 (16-63) U/L Alkaline Phosphatase 61 (46-116) U/L Troponin I < 0.017 (0.00-0.056) ng/mL C-Reactive Protein 28.2 H* (<1.0) mg/dL NT-Pro-B Natriuret Pep (0-125) pg/mL Total Protein 5.7 L (6.4-8.2) g/dl Albumin 2.3 L (3.4-5.0) g/dl Globulin 3.4 gm/dL Albumin/Globulin Ratio 0.7 L (1-2) SARS-CoV-2 RNA (FELICITY) (NEGATIVE) 05/23/20 05/23/20 05/23/20 Range/Units 16:30 16:30 16:30 WBC (4.23-9.07) K/mm3 RBC (4.63-6.08) M/mm3 Hgb (13.7-17.5) gm/dl Hct (40.1-51.0) % MCV (79.0-92.2) fl MCH (25.7-32.2) pg MCHC (32.2-35.5) g/dl RDW Std Deviation (35.1-43.9) fL Plt Count (163-337) K/mm3 Neutrophils % (Manual) (40-60) % Band Neutrophils % (0-10) % Lymphocytes % (Manual) (20-40) % Atypical Lymphs % % Monocytes % (Manual) (2-10) % Eosinophils % (Manual) (0.8-7.0) % Basophils % (Manual) (0.2-1.2) Platelet Estimate Plt Morphology Comment Poikilocytosis Anisocytosis Spherocytes Ovalocytes Juice Cells RBC Morph Comment ESR 89 H (0-15) mm/hr PT (9.7-11.7) SECONDS INR APTT (22-31) SECONDS Sodium (136-145) mEq/L Potassium (3.5-5.1) mEq/L Chloride (98-107) mEq/L Carbon Dioxide (21-32) mEq/L Anion Gap (5-15) BUN (7-18) mg/dL Creatinine (0.7-1.3) mg/dL Est Cr Clr Drug Dosing mL/min Estimated GFR (MDRD) (>60) mL/min BUN/Creatinine Ratio (14-18) Glucose (80-115) mg/dL Lactic Acid 4.0 H* (0.4-2.0) mmol/L Calcium (8.5-10.1) mg/dL Magnesium (1.8-2.4) mg/dl Total Bilirubin (0.2-1.0) mg/dL AST (15-37) U/L ALT (16-63) U/L Alkaline Phosphatase (46-116) U/L Troponin I (0.00-0.056) ng/mL C-Reactive Protein (<1.0) mg/dL NT-Pro-B Natriuret Pep 6129 H (0-125) pg/mL Total Protein (6.4-8.2) g/dl Albumin (3.4-5.0) g/dl Globulin gm/dL Albumin/Globulin Ratio (1-2) SARS-CoV-2 RNA (FELICITY) (NEGATIVE) 05/23/20 Range/Units 16:55 WBC (4.23-9.07) K/mm3 RBC (4.63-6.08) M/mm3 Hgb (13.7-17.5) gm/dl Hct (40.1-51.0) % MCV (79.0-92.2) fl MCH (25.7-32.2) pg MCHC (32.2-35.5) g/dl RDW Std Deviation (35.1-43.9) fL Plt Count (163-337) K/mm3 Neutrophils % (Manual) (40-60) % Band Neutrophils % (0-10) % Lymphocytes % (Manual) (20-40) % Atypical Lymphs % % Monocytes % (Manual) (2-10) % Eosinophils % (Manual) (0.8-7.0) % Basophils % (Manual) (0.2-1.2) Platelet Estimate Plt Morphology Comment Poikilocytosis Anisocytosis Spherocytes Ovalocytes [facility] [facility] Cells RBC Morph Comment ESR (0-15) mm/hr PT (9.7-11.7) SECONDS INR APTT (22-31) SECONDS Sodium (136-145) mEq/L Potassium (3.5-5.1) mEq/L Chloride (98-107) mEq/L Carbon Dioxide (21-32) mEq/L Anion Gap (5-15) BUN (7-18) mg/dL Creatinine (0.7-1.3) mg/dL Est Cr Clr Drug Dosing mL/min Estimated GFR (MDRD) (>60) mL/min BUN/Creatinine Ratio (14-18) Glucose (80-115) mg/dL Lactic Acid (0.4-2.0) mmol/L Calcium (8.5-10.1) mg/dL Magnesium (1.8-2.4) mg/dl Total Bilirubin (0.2-1.0) mg/dL AST (15-37) U/L ALT (16-63) U/L Alkaline Phosphatase (46-116) U/L Troponin I (0.00-0.056) ng/mL C-Reactive Protein (<1.0) mg/dL NT-Pro-B Natriuret Pep (0-125) pg/mL Total Protein (6.4-8.2) g/dl Albumin (3.4-5.0) g/dl Globulin gm/dL Albumin/Globulin Ratio (1-2) SARS-CoV-2 RNA (FELICITY) Negative (NEGATIVE) Meds: Medications Generic Name Dose Route Start Last Admin Trade Name Freq PRN Reason Stop Dose Admin Acetaminophen 650 mg 05/23/20 17:37 Tylenol PO Q4H PRN Pain Dextrose/Sodium Chloride 1,000 mls @ 500 mls/hr 05/23/20 16:15 05/23/20 16:28 Dextrose 5%-Normal Saline IV 500 mls/hr ASDIRECTED CHRISTA Administration Sodium Chloride 10 ml 05/23/20 16:38 Saline Flush FLUSH ONETIME PRN Keep Vein Open Discontinued Medications Generic Name Dose Route Start Last Admin Trade Name Freq PRN Reason Stop Dose Admin Hydromorphone HCl 0.5 mg 05/23/20 19:17 Dilaudid IVPUSH 05/23/20 19:18 ONETIME ONE Ceftriaxone Sodium 2 gm/ 100 mls @ 200 mls/hr 05/23/20 16:34 05/23/20 16:48 Sodium Chloride IV 05/23/20 17:03 200 mls/hr ONETIME ONE Administration Piperacillin Sod/Tazobactam 100 mls @ 200 mls/hr 05/23/20 18:06 05/23/20 18:27 Sod 4.5 gm/ Sodium Chloride IV 05/23/20 18:35 200 mls/hr ONETIME ONE Administration Iopamidol 80 ml 05/23/20 16:38 Isovue-300 (61%) IVPUSH 05/23/20 16:39 ONETIME ONE Ondansetron HCl 4 mg 05/23/20 19:18 Zofran IVPUSH 05/23/20 19:19 ONETIME ONE - Radiology Interpretation Free Text/Narrative:: 65-year-old male presents to the ED at the request of his oncology PA who is seeing him at [facility] today. Patient developed a fever overnight and a palpable purpura over both anterior knees and left popliteal fossa which is tender and limits his mobility in both lower extremities. He also appreciates a palpable very tender mass in the right side of his neck inferior to his right ear in zone 3 of the neck. This measures approximately 8 x 4 cm and is mobile and tender appears to be an abscess developing under the skin. Patient is febrile with a rectal temperature of 99.4 degrees although he feels warmer than this. Septic work-up to be commenced. CT scan with soft tissues of the neck will be done to explore the mass right side of the neck. Once blood cultures x2 have been collected the patient be started immediately on Rocephin 2 g intravenously. - Re-Assessments/Exams Free Text/Narrative Re-Assessment/Exam: 05/23/20 16:30: Chest x-ray done portably reveals that he is rotated slightly to the left side making the right hilum a little more prominent than one would normally see. Mild to moderate cardiomegaly appreciated. The lungs otherwise appear clear. Right PICC line is seen to the level of the superior vena cava. 05/23/20 17:23 Labs reveal marked neutropenia with a total white count of 0.10. Differential is pending. Hemoglobin is low at 7.5 with hematocrit of 22.1 and MCV of 97.4. Platelet count is very low at 7 and a severe thrombocytopenia. PT is 19.9 with an INR of 1.88 with a PTT of 38. Sodium 139 with a potassium of 4.0 chloride 104 with a bicarb of 22. Anion gap is 17.0. BUN is elevated at 29 with a creatinine of 1.5 and GFR is reported to be 47 today. Previous creatinine was 1.0 and of April. BUN/creatinine ratio is 19.3. Glucose 135. Lactic acid is elevated at 4.0. Calcium is 8.3 with a magnesium of 1.7. Total bilirubin is 3.3 AST is normal at 21 ALT is normal at 25 alk phos days is 61. Troponin I is less than 0.017. C-reactive protein is pending. BNP is elevated at 6129. Total protein is 5.7 albumin fraction is 2.3. 05/23/20 17:29 CT scan of the soft tissues of the neck has been completed with IV contrast. The nasopharynx appears unremarkable. The oropharynx is unremarkable with no significant tonsillar enlargement. Hypopharynx is unremarkable. Larynx is unremarkable with a normal epiglottis. Retropharyngeal space is normal. Submandibular/parotid glands are normal thyroid is normal with no enlarged or calcified nodules. Lymph nodes few scattered nonenlarged cervical lymph nodes no definite enlarged cervical lymph nodes in the neck appreciated. Visualized portion of the trachea is unremarkable. Bones reveals scattered degenerative changes and throughout the cervical spine. Soft tissues there is a moderate inflammation with skin thickening and subcutaneous infla mmation/edema along the right posterior lateral cervical soft tissues there is some associated thickening of adjacent musculature no focal abscess in this region is identified. This suggest an underlying cellulitis with no definitive abscess. I am therefore going to add a second antibiotic Zosyn to his treatment plan starting with 4.5 g. 05/23/20 18:00: Discussions with [facility] in [place] were carried out and unfortunately there is no beds available in their hospital at this time. Discussions were then carried on with [facility] in [place] and they too are on diversion. Decisions were finally made to allow the patient to be transferred to [facility] in [place] where he will be admitted into the emergency room for definitive management of his pancytopenia as he is going to need platelet transfusion and likely blood transfusion. He needs to continue antibiotics for neutropenia as long as he remains febrile. Patient will be transferred to that facility per ground ambulance. 05/23/20 19:23 and is having diffuse pain at this point time unrelieved by the Tylenol which I gave him an hour ago for fever. I will give him Dilaudid 0.5 mg IV with Zofran 4 mg IV. His blood pressure is 134/62 heart rate is in the 120s. O2 sats 98% on room air respiratory rate of 20 05/23/20 19:31 Second lactic acid level was ordered for 1930 hrs. it is just being collected at this time. The result will have to be phoned to the emergency room in [place] once it becomes available. Departure - Departure Time of Disposition: 19:25 Disposition: DC/Tfer to Acute Hospital 02 Condition: Serious Clinical Impression: Acute febrile illness, Pancytopenia due to antineoplastic chemotherapy, Palpable purpura, Mass of right side of neck, Lactic acidosis Diffuse large B cell lymphoma Qualifiers: Lymphoma site: multiple regions Qualified Code(s): C83.38 - Diffuse large B- cell lymphoma, lymph nodes of multiple sites Congestive heart failure Qualifiers: Heart failure type: diastolic Heart failure chronicity: acute on chronic Qualified Code(s): I50.33 - Acute on chronic diastolic (congestive) heart failure - Discharge Information Referrals: Sidney Romano MD [Primary Care Provider] - Forms: ED Department Discharge Additional Instructions: Patient will be transferred to the emergency room at [facility] in [place] due to lack of beds in the entire pending sale to [facility]. He is in need of a platelet transfusion and possibly a blood transfusion due to development of pancytopenia secondary to antineoplastic chemotherapy for a diffuse large B cell lymphoma. Patient has developed palpable purpura over both knees and in the left popliteal fossa. He also has developed a painful swollen erythematous mass right side of his neck without abscess formation on CT. The plan will be for him to reside in the emergency department at [facility] in [place] until a bed can open up for him. Sepsis Event Note (ED) - Evaluation Sepsis Screening Result: No Definite Risk - Focused Exam Vital Signs: Vital Signs Temp Temp Pulse Resp BP Pulse Ox 05/23/20 16:58 37.4 C 70 114/54 L 100 05/23/20 15:35 36.7 C 120 H 17 135/69 100 - My Orders Last 24 Hours: My Active Orders 05/23/20 16:03 Chest 1V Frontal [CR] Stat 05/23/20 16:04 EKG Documentation Completion [RC] STAT Blood Culture x2 Reflex Set [OM.PC] Stat 05/23/20 16:05 URINALYSIS W/MICROSCOPIC [UA W/MICROSCOPIC] [URIN] Stat 05/23/20 16:15 Dextrose 5%-0.9% NaCl [Dextrose 5%-Normal Saline] 1,000 ml IV ASDIRECTED 05/23/20 16:25 CULTURE BLOOD [BC] Stat 05/23/20 16:30 Soft Tissue Neck w Cont [CT] Stat CULTURE BLOOD [BC] Stat 05/23/20 16:38 Sodium Chloride 0.9% [Saline Flush] 10 ml FLUSH ONETIME PRN 05/23/20 17:37 Acetaminophen [TylenoL] 650 mg PO Q4H PRN 05/23/20 19:30 LACTATE SEPSIS W/ REFLEX [CHEM] Routine - Assessment/Plan Last 24 Hours: My Active Orders 05/23/20 16:03 Chest 1V Frontal [CR] Stat 05/23/20 16:04 EKG Documentation Completion [RC] STAT Blood Culture x2 Reflex Set [OM.PC] Stat 05/23/20 16:05 URINALYSIS W/MICROSCOPIC [UA W/MICROSCOPIC] [URIN] Stat 05/23/20 16:15 Dextrose 5%-0.9% NaCl [Dextrose 5%-Normal Saline] 1,000 ml IV ASDIRECTED 05/23/20 16:25 CULTURE BLOOD [BC] Stat 05/23/20 16:30 Soft Tissue Neck w Cont [CT] Stat CULTURE BLOOD [BC] Stat 05/23/20 16:38 Sodium Chloride 0.9% [Saline Flush] 10 ml FLUSH ONETIME PRN 05/23/20 17:37 Acetaminophen [TylenoL] 650 mg PO Q4H PRN 05/23/20 19:30 LACTATE SEPSIS W/ REFLEX [CHEM] Routine
[2020-05-23] MEDS ORDERED: Dextrose 5%-0.9% NaCl 1,000 ML IV SCH (16:15)
[2020-05-23] MEDS ORDERED: cefTRIAXone 2 GM in Sodium Chloride 0.9% 100 ML IV ONE (16:34)
[2020-05-23] MEDS ORDERED: Sodium Chloride 0.9% 10 ML Syringe FLUSH PRN (16:38)
[2020-05-23] MEDS ORDERED: Iopamidol 612 MG/ML 100 ML Bottle IVPUSH ONE (16:38)
[2020-05-23 16:59] VITALS: BP 114/54; PULSE 70
[2020-05-23] MEDS ORDERED: Acetaminophen 325 MG Tab PO PRN (17:37)
[2020-05-23] MEDS ORDERED: Piperacillin/Tazobactam 4.5 GM in Sodium Chloride 0.9% 100 ML IV ONE (18:06)
[2020-05-23] MEDS ORDERED: HYDROmorphone 0.5 MG/0.5 ML Syringe IVPUSH ONE (19:17)
[2020-05-23] MEDS ORDERED: Ondansetron 4 MG/2 ML SDV IVPUSH ONE (19:18)
== END 2020-05-23 20:20 ==
LOC: JD.ED 15:09
DX: D61.810 Antineoplastic chemotherapy induced pancytopenia (principal); D69.2 Other nonthrombocytopenic purpura; R22.1 Localized swelling, mass and lump, neck; E87.2 Acidosis; I50.33 Acute on chronic diastolic (congestive) heart failure; C83.38 Diffuse large B-cell lymphoma, lymph nodes of multiple sites; K21.9 Gastro-esophageal reflux disease without esophagitis; Z20.828 Contact with and (suspected) exposure to other viral communicable diseases; Z79.899 Other long term (current) drug therapy
CPT/HCPCS: 36415; 70491; 71045; 80053; 81001; 83605; 83735; 83880; 84484; 85007; 85027; 85610; 85652; 85730; 86140; 87040; 87077; 87186; 93005; 93010; 96365; 96367; 96375; 99285; 99285-25; A9270-GY; J0696; J1170; J2405; J2543; J7042; J7050; U0002

== ENCOUNTER 2021-04-29 05:18 | Emergency (ER) | payer MEDICARE, BC ==
[2021-04-29 05:37] VITALS: BP 149/92; PULSE 71
[2021-04-29] MEDS ORDERED: HYDROmorphone 1 MG/ML Syringe IVPUSH STA (05:57)
[2021-04-29] MEDS ORDERED: Ondansetron 4 MG/2 ML SDV IVPUSH ONE (05:57)
[2021-04-29] MEDS ORDERED: Sodium Chloride 0.9% 1,000 ML IV SCH (06:00)
--- NOTE | 2021-04-29 06:04 | EDM.PDOC ---
<Edgard Gold - Last Filed: 04/29/21 08:43> ED HPI GENERAL MEDICAL PROBLEM - General Chief Complaint: Abdominal Pain Stated Complaint: STOMACH PAIN Time Seen by Provider: 04/29/21 05:28 Source of Information: Reports: Patient, Family () History Limitations: Reports: No Limitations - History of Present Illness INITIAL COMMENTS - FREE TEXT/NARRATIVE: Mr. Cunha is a very pleasant 66-year-old gentleman who now presents to the ED after developing a midline abdominal pain this past 04/27/2021. He describes the pain as sharp in character. He states that initially it was waxing and waning, however, it has become constant, and more severe. He has not identified any modifiers. The pain does not radiate. He has had nausea, but no vomiting or diarrhea. His last bowel movement was on Thursday, and his last flatus this morning. He states that he took some acetaminophen and left over OxyContin, which did not help. The patient also reports having increased urinary urgency with decreased urine flow for the past 1 to 2 days. He has not had a fever, but he has ultimately felt cold and hot. No prior similar symptoms. Here in the ED, the patient's initial BP is found to be mildly elevated at 149/92, otherwise, he is hemodynamically stable, afebrile, saturating 98% on room air. He appears to be somewhat uncomfortable, although was not in acute distress. Prior to Thursday, the patient denies having a recent fever, chills, sore throat, ear pain, nasal or sinus congestion, cough, dyspnea, chest pain, palpitations, nausea, vomiting, constipation, diarrhea, abdominal pain, urinary symptoms, recent weight gain or weight loss, recent bloody bowel movements or black bowel movements, recent joint aches, headaches, or rashes. The patient's PCP is Dr. Sidney Marcelino. His Oncologist is Dr. Prasad Rowe. His Bank Vault Custodian is Dr. Morgan Burton. His Oncologist is at [facility]. He has received 2 COVID vaccinations. Middle Abdomen Pain Score (Numeric/FACES): 9 - Related Data Allergies Allergy/AdvReac Type Severity Reaction Status Date / Time No Known Allergies Allergy Verified 04/29/21 05:32 Home Meds: Home Meds Pantoprazole [ProTONIX] 40 mg PO BID 05/23/20 [History] oxyCODONE 10 mg PO Q4HR PRN 05/23/20 [History] Hydrocodone/Acetaminophen [Hydrocodone-Acetamin 5-325 mg] 1 - 2 each PO Q6H PRN #15 tablet 04/29/21 [Rx] Past Medical History Gastrointestinal History: Reports: Cirrhosis (alcoholic, untreated), GERD Oncologic (Cancer) History: Reports: Colon (s/p curative hemicolectomy), Non- Hodgkin's Lymphoma (Large B-cell lymphoma, s/p CTx, in remission) - Past Surgical History GI Surgical History: Reports: Colon (hemicolectomy for colon CA), Colonoscopy (x 5 or 6), EGD (x 3), Hernia, Abdominal Musculoskeletal Surgical History: Reports: Other (See Below) (Right knee repair) Oncologic Surgical History: Reports: Other (See Below) (Mesenteric LN biopsy) Dermatological Surgical History: Reports: Other (See Below) (Right thigh debridement) Social & Family History - Tobacco Use Tobacco Use Status *Q: Never Tobacco User - Caffeine Use Caffeine Use: Reports: Coffee - Alcohol Use Alcohol Use History: Yes Date/Time of Last Drink Comment: 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 ED EXAM, GI/ABD - Physical Exam Exam: See Below Exam Limited By: No Limitations General Appearance: Alert, WD/WN, Mild Distress (mild discomfort) Eyes: Bilateral: Normal Appearance, EOMI Ears: Normal External Exam, Hearing Grossly Normal Nose: Normal Inspection Throat/Mouth: Normal Inspection, Normal Lips, Normal Voice, No Airway Compromise Head: Atraumatic, Normocephalic Neck: Normal Inspection, Full Range of Motion Respiratory/Chest: No Respiratory Distress, Lungs Clear, Normal Breath Sounds, No Accessory Muscle Use Cardiovascular: Normal Peripheral Pulses, Regular Rate, Rhythm, No Edema, No Gallop, No JVD, No Murmur, No Rub GI/Abdominal Exam: Soft, No Organomegaly, No Distention, No Abnormal Bruit, No Mass, Tender (Mild, generalized, non-focal), Abnormal Bowel Sounds (absent) Back Exam: Normal Inspection, Full Range of Motion. No: CVA Tenderness (L), CVA Tenderness (R) Extremities: Normal Inspection, Normal Range of Motion, No Pedal Edema, Normal Capillary Refill Neurological: Alert, Oriented, Normal Cognition, No Motor/Sensory Deficits Psychiatric: Normal Affect Skin Exam: Warm, Dry, Intact, Normal Color, No Rash Course - Re-Assessments/Exams Free Text/Narrative Re-Assessment/Exam: 04/29/21 05:59 While the patient's abdomen is soft and not all that tender, I hear no bowel sounds on auscultation. I am concerned about a small bowel obstruction, although other etiologies are possible. I have ordered a work-up that includes numerous blood tests, a urinalysis by clean-catch, and a CT of the abdomen and pelvis with oral and IV contrast. As there is a good chance that the patient will need to be admitted or transferred, I have also ordered a swab for the SARS-CoV-2 virus. In the meantime, the patient will be treated with IV Dilaudid, IV Zofran, and IV fluid. 04/29/21 08:43 The patient's CBC is remarkable for an H/H slightly depressed at 12.7/37.6, and thrombocytopenia of 94,000, with remainder of his CBC being unremarkable. His CMP is remarkable for hyperglycemia of 143, and a TBil mildly elevated at 2.0, with remainder of his CMP being unremarkable. His lipase level is within normal limits at 56. The patient's urinalysis, swab for the SARS-CoV-2 virus, and results of the CT of his abdomen and pelvis are still pending. Case discussed with Dr. Peralta, and care of the patient turned over to him at this time, for change of shift. Departure - Departure Disposition: Home, Self-Care 01 Clinical Impression: Abdominal pain Qualifiers: Abdominal location: generalized Qualified Code(s): R10.84 - Generalized abdominal pain Cirrhosis Qualifiers: Hepatic cirrhosis type: other cirrhosis Qualified Code(s): K74.69 - Other cirrhosis of liver Ascites Qualifiers: Ascites type: other type Qualified Code(s): R18.8 - Other ascites - Discharge Information *PRESCRIPTION DRUG MONITORING PROGRAM REVIEWED*: Not Applicable *COPY OF PRESCRIPTION DRUG MONITORING REPORT IN PATIENT DIANA: Not Applicable Prescriptions: Hydrocodone/Acetaminophen [Hydrocodone-Acetamin 5-325 mg] 1 - 2 each PO Q6H PRN #15 tablet PRN Reason: Pain Referrals: Morgan Burton MD [Ordering Only Provider] - Sidney Hay MD [Primary Care Provider] - Prasad Rowe MD [Ordering Only Provider] - iNrav Sheikh MD [Physician] - Forms: ED Department Discharge Additional Instructions: Drink plenty of fluids. Try not to eat anything to heavy for a couple of days and advance your diet as tolerated. Take tylenol or motrin for pain. If that does not help, try the hydrocodone. I have sent the CT to [facility]. Follow up with Dr Hay or his partner this week. His partner is Dr Nirav Sheikh. Please return if you are worse. Sepsis Event Note (ED) - Evaluation Sepsis Screening Result: No Definite Risk <Rey Peralta - Last Filed: 04/29/21 11:11> Course - Vital Signs Last Recorded V/S: Last Vital Signs Temp 97.0 F 04/29/21 05:33 Pulse 71 04/29/21 05:33 Resp 17 04/29/21 05:33 BP 149/92 H 04/29/21 05:33 Pulse Ox 98 04/29/21 05:33 - Orders/Labs/Meds Orders: Active Orders 24 hr Category Date Time Status CORONAVIRUS COVID-19 FELICITY [MOLEC] Stat Lab 04/29/21 06:04 Ordered UA W/MICROSCOPIC [URIN] Stat Lab 04/29/21 10:12 Results Sodium Chloride 0.9% [Normal Saline] 1,000 ml Med 04/29/21 06:00 Active IV ASDIRECTED Sodium Chloride 0.9% [Saline Flush] Med 04/29/21 07:35 Active 10 ml FLUSH ONETIME PRN Medication Orders Sodium Chloride (Normal Saline) 1,000 mls @ 150 mls/hr IV ASDIRECTED CHRISTA Last Admin: 04/29/21 06:05 Dose: 150 mls/hr Documented by: JAMA Sodium Chloride (Sodium Chloride 0.9% 10 Ml Syringe) 10 ml FLUSH ONETIME PRN PRN Reason: IV FLUSH Last Admin: 04/29/21 07:45 Dose: 10 ml Documented by: SUMEET Labs: Laboratory Tests 04/29/21 04/29/2104/29/21 Range/Units 06:00 06:00 10:12 WBC 5.63 (4.23-9.07) K/mm3 RBC 4.18 L (4.63-6.08) M/mm3 Hgb 12.7 L D (13.7-17.5) gm/dl Hct 37.6 L (40.1-51.0) % MCV 90.0 D (79.0-92.2) fl MCH 30.4 (25.7-32.2) pg MCHC 33.8 (32.2-35.5) g/dl RDW Std Deviation 44.2 H (35.1-43.9) fL Plt Count 94 L D (163-337) K/mm3 MPV 9.9 (9.4-12.3) fl Neutrophils % (Manual) 90 H (40-60) % Band Neutrophils % 1 (0-10) % Lymphocytes % (Manual) 8 L (20-40) % Atypical Lymphs % 0 % Monocytes % (Manual) 1 L (2-10) % Eosinophils % (Manual) 0 L (0.8-7.0) % Basophils % (Manual) 0 L (0.2-1.2) Platelet Estimate Decreased Poikilocytosis 1+ slight Anisocytosis 1+ sligh RBC Morph Comment Abnormal Sodium 140 (136-145) mEq/L Potassium 4.3 (3.5-5.1) mEq/L Chloride 104 (98-107) mEq/L Carbon Dioxide 23 (21-32) mEq/L Anion Gap 17.3 H (5-15) BUN 14 (7-18) mg/dL Creatinine 0.9 (0.7-1.3) mg/dL Est Cr Clr Drug Dosing 70.89 mL/min Estimated GFR (MDRD) > 60 (>60) mL/min BUN/Creatinine Ratio 15.6 (14-18) Glucose 143 H (70-99) mg/dL Calcium 8.8 (8.5-10.1) mg/dL Total Bilirubin 2.0 H (0.2-1.0) mg/dL AST 24 (15-37) U/L ALT 20 (16-63) U/L Alkaline Phosphatase 95 (46-116) U/L Total Protein 7.3 (6.4-8.2) g/dl Albumin 3.7 (3.4-5.0) g/dl Globulin 3.6 gm/dL Albumin/Globulin Ratio 1.0 (1-2) Lipase 56 L (73-393) U/L Urine Color Yellow (Yellow) Urine Appearance Clear (Clear) Urine pH 6.0 (5.0-8.0) Ur Specific [place] 1.015 (1.005-1.030) Urine Protein Negative (Negative) Urine Glucose (UA) Negative (Negative) Urine Ketones Negative (Negative) Urine Occult Blood Negative (Negative) Urine Nitrite Negative (Negative) Urine Bilirubin Negative (Negative) Urine Urobilinogen 1.0 (0.2-1.0) Ur Leukocyte Esterase Negative (Negative) Meds: Medications Generic Name Dose Route Start Last Admin Trade Name Freq PRN Reason Stop Dose Admin Sodium Chloride 1,000 mls @ 150 mls/hr 04/29/21 06:00 04/29/21 06:05 Normal Saline IV 150 mls/hr ASDIRECTED CHRISTA Administration Sodium Chloride 10 ml 04/29/21 07:35 04/29/21 07:45 Sodium Chloride 0.9% 10 Ml Syringe FLUSH 10 ml ONETIME PRN Administration IV FLUSH Discontinued Medications Generic Name Dose Route Start Last Admin Trade Name Freq PRN Reason Stop Dose Admin Diatrizoate Meglum/Diatrizoate Sod 120 ml 04/29/21 07:35 04/29/21 07:45 Diatrizoate Meglumine/Diatrizoate Sodium 37% 120 Ml Bottle PO 04/29/21 07:36 90 ml ONETIME ONE Administration Hydromorphone HCl 1 mg 04/29/21 05:57 04/29/21 06:05 Hydromorphone 1 Mg/Ml Syringe IVPUSH 04/29/21 05:58 1 mg ONETIME STA Administration Iopamidol 100 ml 04/29/21 07:35 04/29/21 07:45 Iopamidol 612 Mg/Ml 100 Ml Bottle IVPUSH 04/29/21 07:36 100 ml ONETIME ONE Administration Ondansetron HCl 4 mg 04/29/21 05:57 04/29/21 06:05 Ondansetron 4 Mg/2 Ml Sdv IVPUSH 04/29/21 05:58 4 mg ONETIME ONE Administration - Re-Assessments/Exams Free Text/Narrative Re-Assessment/Exam: 04/29/21 10:[address] Gold. Findings compatible with cirrhosis. New area of ascites is seen around the liver. Minimal fluid is seen next to several right- sided small bowel loops. Mildly dilated small bowel which is seen to the point of attachment to the colon. Findings either represent diffuse ileus or gastroenteritis. Small calcified gallstone. Small nonobstructing stone noted within the lower left kidney. Small cyst noted within the right kidney. Other nonacute findings. 04/29/21 10:[address] did talk with Dr Hurtado and he agreed there is nothing surgical that needs to be done. The patient has a history of liver problems from the chemo. He feels much better now. I did send the films to [facility] for his doctors there and [place]. I will call Dr Hay and up date him. His urine looks good. I will discharge him home. 04/29/21 11:[address] Hay and he was okay with the patient going home. He recommended following up with his partner Dr Nirav Sheikh. He may get in sooner with him. Departure - Departure Time of Disposition: 11:00 Condition: Good Sepsis Event Note (ED) - Focused Exam Vital Signs: Vital Signs Temp Pulse Resp BP Pulse Ox 04/29/21 05:33 97.0 F 71 17 149/92 H 98
[2021-04-29] MEDS ORDERED: Sodium Chloride 0.9% 10 ML Syringe FLUSH PRN (07:35)
[2021-04-29] MEDS ORDERED: Iopamidol 612 MG/ML 100 ML Bottle IVPUSH ONE (07:35)
[2021-04-29] MEDS ORDERED: Diatrizoate Meglumine/Diatrizoate Sodium 37% 120 ML Bottle PO ONE (07:35)
--- NOTE | 2021-04-29 09:05 | CT ---
CT abdomen and pelvis Technique: Multiple axial sections were obtained from above the dome of the diaphragm inferiorly through the pubic symphysis. Intravenous and oral contrast were utilized. Delayed images were also obtained through the abdomen and pelvis. Reconstructed coronal and sagittal images were obtained. Comparison: Prior CT abdomen and pelvis study of 11/29/20. Findings: Small amount of ascites is seen which surrounds the liver. Liver also shows an irregular surface contour most likely representing stable cirrhosis. Gallbladder contains a small calcified gallstone. Spleen size is slightly enlarged measuring 14.0 cm. Adrenal glands show no nodule. Pancreas shows no discrete abnormality. Kidneys show symmetric contrast enhancement. Nonobstructing stone is noted within the lower left kidney measuring 5 mm. Small cyst is noted within the lower right kidney measuring 1.6 cm. There is dilatation of the small bowel being seen. Prior bowel surgery is noted within the remaining right colon. Small bowel is dilated to the anastomosis to the colon. There is a small amount of free fluid being seen around the right-sided bowel. Surgical clips are seen within the retroperitoneum. Small fat-containing umbilical hernia is noted. No pelvic mass or adenopathy is seen. Small fat-containing left-sided inguinal hernia is noted. Bladder wall is normal in size. Delayed images show contrast excretion from both kidneys into normal-sized ureters and bladder. Bone window settings were reviewed which show mild scattered degenerative change within the spine. No acute osseous abnormality is appreciated. Impression: 1. Findings compatible with cirrhosis. New area of ascites is seen around the liver. Minimal fluid is seen next to several right-sided small bowel loops. 2. Mildly dilated small bowel which is seen to the point of attachment to the colon. Findings either represent diffuse ileus or gastroenteritis. 3. Small calcified gallstone. 4. Small nonobstructing stone noted within the lower left kidney. Small cyst noted within the right kidney. 5. Other nonacute findings as described above. Diagnostic code #3
== END 2021-04-29 11:20 | disposition home or self-care (01) ==
LOC: JD.ED 05:18
DX: K74.69 Other cirrhosis of liver (principal); R18.8 Other ascites; K21.9 Gastro-esophageal reflux disease without esophagitis; Z79.899 Other long term (current) drug therapy
CPT/HCPCS: 36415; 74177; 80053; 81001; 83690; 85007; 85027; 96374; 96375; 99284; J1170; J2405; J7030; Q9963; Q9967

== ENCOUNTER 2021-07-22 13:56 | Inpatient (IN) | payer MEDICARE, BC ==
[2021-07-22] MEDS ORDERED: Sodium Chloride 0.9% 1,000 ML IV SCH (14:30)
--- NOTE | 2021-07-22 14:58 | CT ---
Head CT Technique: Multiple axial sections through the brain were obtained. Intravenous contrast was not utilized. Reconstructed coronal and sagittal images were obtained. Comparison: No prior intracranial imaging is available. Findings: Ventricles along with basal cisterns and sulci over the convexities are mildly prominent. Diminished density is noted within the left anterior parietal region. This presumably is due to previous infarct although contrast would be needed to rule out metastasis. No other abnormal parenchymal densities are seen. No evidence of intracranial hemorrhage is seen. No midline shift or mass-effect is seen. Bone window settings were reviewed. Visualized mastoid sinuses and paranasal sinuses show nothing acute. Minimal atherosclerotic calcification is seen within the carotid siphon. No acute bony abnormality is appreciated. Impression: 1. 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 No contrast was utilized and difficult to completely exclude a metastasis. If further evaluation for metastasis is needed, consider MRI study without and with gadolinium. 2. Mild generalized atrophy and minimal atherosclerotic calcification within the carotid siphon. 3. No other acute abnormality is appreciated. Diagnostic code #3
[2021-07-22] MEDS: Sodium Chloride 0.9% 10 ML Syringe FLUSH PRN (15:00)
--- NOTE | 2021-07-22 15:02 | CR ---
Chest: Portable view of the chest was obtained. Comparison: Prior chest x-ray of 06/25/21. Heart size has a left ventricular configuration. Upper mediastinum is within normal limits. Lungs are clear with no acute parenchymal change. Prior study showed a nodule within the left upper lung. This is not definitely appreciated on current study. Impression: 1. Left ventricular configuration of the heart. 2. Nothing acute is definitely appreciated. Diagnostic code #2
--- NOTE | 2021-07-22 17:00 | EDM.PDOC ---
ED HPI GENERAL MEDICAL PROBLEM - General Chief Complaint: Neurological Problem Stated Complaint: [facility] Time Seen by Provider: 07/22/21 14:12 Source of Information: Reports: EMS, Family History Limitations: Reports: Altered Mental Status - History of Present Illness INITIAL COMMENTS - FREE TEXT/NARRATIVE: The patient presents by [facility] for confusion, generalized weakness, and not eating. He has a history of nonHodgkin's lymphoma a few years ago. He was treated for that at [facility] and was doing well. Recently he was found to have colon cancer. 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 He was seen at [facility] and they first told him to get hospice but then they saw radiation oncology and they said they could do 3 treatments and that should help. He had all 3 treatments and had generalized weakness but he could talk and was not confused. He came home on Thursday and after that he has not been able to eat. He was drinking some fluids. He also has been confused. When he arrived here, he did not know who he was, where he was or when it was. When I asked him who he was, he was trying to give me his date of . He has no cough, vomiting or diarrhea. His says that he had a lung infection. They also had him on some dexamethasone. 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 He quit back in 2014. He saw a team of doctors there Dr Mike with neurology, Dr Kennedy with radiology oncology, Dr Miller with oncology and Dr Martines with oncology. Onset: Gradual Duration: Day(s): (2) Severity: Moderate Improves with: Reports: None Worsens with: Reports: None Associated Symptoms: Reports: Confusion. Denies: Cough, Fever/Chills, Nausea/Vomiting, Shortness of Breath - Related Data Allergies Allergy/AdvReac Type Severity Reaction Status Date / Time No Known Allergies Allergy Verified 07/22/21 14:28 Home Meds: Home Meds Pantoprazole [ProTONIX] 40 mg PO BID 05/23/20 [History] Posaconazole 300 mg PO DAILY 07/22/21 [History] dexAMETHasone [Dexamethasone] 4 mg PO BID 07/22/21 [History] Past Medical History - Past Health History Medical/Surgical History: Denies Medical/Surgical History HEENT History: Reports: Hard of Hearing Respiratory History: Reports: Pneumonia, Recurrent Gastrointestinal History: Reports: Cirrhosis, GERD Genitourinary History: Reports: Prostate Disorder Hematologic History: Reports: Anemia Immunologic History: Reports: Immunosuppression Oncologic (Cancer) History: Reports: Colon, Non-Hodgkin's Lymphoma, Prostate Dermatologic History: Reports: Cellulitis - Past Surgical History GI Surgical History: Reports: Colon, Colonoscopy, EGD, Hernia, Abdominal Other GI Surgeries/Procedures: colon resecion Social & Family History - Tobacco Use Tobacco Use Status *Q: Never Tobacco User Second Hand Smoke Exposure: No - Caffeine Use Caffeine Use: Reports: None - Recreational Drug Use Recreational Drug Use: No - Living Situation & Occupation Living situation: Reports: , with Spouse Occupation: Retired ED ROS GENERAL - Review of Systems Review Of Systems: See Below Reason Not Obtained: Not sure if ROS is reliable. He says he is fine. Constitutional: Reports: No Symptoms HEENT: Reports: No Symptoms Respiratory: Reports: No Symptoms Cardiovascular: Reports: No Symptoms Endocrine: Reports: No Symptoms GI/Abdominal: Reports: No Symptoms : Reports: No Symptoms Musculoskeletal: Reports: No Symptoms Skin: Reports: No Symptoms Neurological: Reports: No Symptoms - Physical Exam Exam: See Below Exam Limited By: Other (confusion) General Appearance: Alert, No Apparent Distress Ears: Normal External Exam Nose: Normal Inspection Head Exam: Atraumatic, Normocephalic Neck: Normal Inspection Respiratory/Chest: No Respiratory Distress, Lungs Clear, Normal Breath Sounds Cardiovascular: Regular Rate, Rhythm, No Edema, No Murmur GI/Abdominal: Soft, Non-Tender, No Organomegaly Neuro Exam (Abbreviated): Alert, Other (The patient is not orientated to person, place or time. He has generalized weakness. He can talk but he is confused. He will follow commands.) #1 Interpretation EKG Date: 07/22/21 Time: 15:16 Rhythm: NSR Rate (Beats/Min): 60 [place]: LAD-Left [place] Deviation P-Wave: Present QRS: Normal ST-T: Normal QT: Normal Course - Vital Signs Last Recorded V/S: Last Vital Signs Temp 98.6 F 07/22/21 14:14 Pulse 68 07/22/21 14:14 Resp 12 07/22/21 14:14 BP 154/102 H 07/22/21 14:14 Pulse Ox 99 07/22/21 14:14 - Orders/Labs/Meds Orders: Active Orders 24 hr Category Date Time Status Cardiac Monitoring [RC] . DIRECTED Care 07/22/21 14:28 Active Peripheral IV Care [RC] . DIRECTED Care 07/22/21 14:30 Active Vital Signs [RC] Q15M Care 07/22/21 19:43 Active BLOOD CULTURE [MREF] Stat Lab 07/22/21 14:50 Received BLOOD CULTURE [MREF] Stat Lab 07/22/21 15:00 Received UA W/MICROSCOPIC [URIN] Stat Lab 07/22/21 14:28 Ordered Casirivimab/Imdevimab [Regen-Cov 600-600 mg/10Ml (Eua)] Med 07/22/21 19:43 Active 10 ml Sodium Chloride 0.9% [Normal Saline] 100 ml IV ONETIME EPINEPHrine [Adrenalin] Med 07/22/21 19:43 Active 0.3 mg IM ASDIRECTED PRN Famotidine [Pepcid] Med 07/22/21 19:43 Active 20 mg IVPUSH ASDIRECTED PRN Sodium Chloride 0.9% [Normal Saline] 1,000 ml Med 07/22/21 14:30 Active IV .BOLUS Sodium Chloride 0.9% [Saline Flush] Med 07/22/21 14:28 Active 10 ml FLUSH ASDIRECTED PRN Sodium Chloride 0.9% [Saline Flush] Med 07/22/21 19:45 Active 30 ml FLUSH ASDIRECTED diphenhydrAMINE [Benadryl] Med 07/22/21 19:43 Active 50 mg IVPUSH ASDIRECTED PRN methylPREDNISolone Sod Succ [Solu-MEDROL] Med 07/22/21 19:43 Active 125 mg IVPUSH ASDIRECTED PRN Blood Culture x2 Reflex Set [OM.PC] Stat Oth 07/22/21 14:31 Ordered Peripheral IV Insertion Adult [OM.PC] Stat Oth 07/22/21 14:28 Ordered Medication Orders Diphenhydramine HCl (Diphenhydramine 50 Mg/Ml Sdv) 50 mg IVPUSH ASDIRECTED PRN PRN Reason: hypersensitivity reaction Epinephrine HCl (Epinephrine 1 Mg/Ml Sdv) 0.3 mg IM ASDIRECTED PRN PRN Reason: hypersensitivity reaction Famotidine (Famotidine 20 Mg/2 Ml Sdv) 20 mg IVPUSH ASDIRECTED PRN PRN Reason: hypersensitivity reaction Sodium Chloride (Normal Saline) 1,000 mls @ 1,000 mls/hr IV .BOLUS CHRISTA Last Admin: 07/22/21 16:18 Dose: 1,000 mls/hr Documented by: AMANDA CASIRIVIMAB/IMDEVIMAB 10 ml/ (Sodium Chloride) 110 mls @ 220 mls/hr IV ONETIME ONE Stop: 07/22/21 20:12 Methylprednisolone Sodium Succinate (Methylprednisolone Sodium Succinate 125 Mg/2 Ml Sdv) 125 mg IVPUSH ASDIRECTED PRN PRN Reason: hypersensitivity reaction Sodium Chloride (Sodium Chloride 0.9% 10 Ml Syringe) 10 ml FLUSH ASDIRECTED PRN PRN Reason: Keep Vein Open Last Admin: 07/22/21 15:00 Dose: 10 ml Documented by: BURAK Sodium Chloride (Sodium Chloride 0.9% 10 Ml Syringe) 30 ml FLUSH ASDIRECTED CHRISTA Labs: Laboratory Tests 07/22/21 07/22/21 07/22/21 Range/Units 14:50 14:50 14:50 WBC 6.25 (4.23-9.07) K/mm3 RBC 3.40 L (4.63-6.08) M/mm3 Hgb 10.5 L (13.7-17.5) gm/dl Hct 32.5 L (40.1-51.0) % MCV 95.6 H (79.0-92.2) fl MCH 30.9 (25.7-32.2) pg MCHC 32.3 (32.2-35.5) g/dl RDW Std Deviation 66.1 H (35.1-43.9) fL Plt Count 49 L (163-337) K/mm3 MPV 12.0 (9.4-12.3) fl Neut % (Auto) 80.3 H (34.0-67.9) % Lymph % (Auto) 14.1 L (21.8-53.1) % [place] % (Auto) 4.3 L (5.3-12.2) % Eos % (Auto) 0 L (0.8-7.0) Baso % (Auto) 0.2 (0.1-1.2) % Neut # (Auto) 5.02 (1.78-5.38) K/mm3 Lymph # (Auto) 0.88 L (1.32-3.57) K/mm3 [place] # (Auto) 0.27 L (0.30-0.82) K/mm3 Eos # (Auto) 0.00 L (0.04-0.54) K/mm3 Baso # (Auto) 0.01 (0.01-0.08) K/mm3 Manual Slide Review Abnormal smear PT 14.7 H D (9.7-12.0) SECONDS INR 1.34 Sodium (136-145) mEq/L Potassium (3.5-5.1) mEq/L Chloride (98-107) mEq/L Carbon Dioxide (21-32) mEq/L Anion Gap (5-15) BUN (7-18) mg/dL Creatinine (0.7-1.3) mg/dL Est Cr Clr Drug Dosing Estimated GFR (MDRD) (>60) mL/min BUN/Creatinine Ratio (14-18) Glucose (70-99) mg/dL Lactic Acid 3.5 H* (0.4-2.0) mmol/L Calcium (8.5-10.1) mg/dL Magnesium (1.8-2.4) mg/dL Total Bilirubin (0.2-1.0) mg/dL AST (15-37) U/L ALT (16-63) U/L Alkaline Phosphatase (46-116) U/L Ammonia (11-32) umol/L Troponin I (0.00-0.056) ng/mL C-Reactive Protein (<1.0) mg/dL Total Protein (6.4-8.2) g/dl Albumin (3.4-5.0) g/dl Globulin gm/dL Albumin/Globulin Ratio (1-2) Lipase (73-393) U/L SARS-CoV-2 RNA (FELICITY) (NEGATIVE) 07/22/21 07/22/21 07/22/21 Range/Units 15:00 16:33 17:50 WBC (4.23-9.07) K/mm3 RBC (4.63-6.08) M/mm3 Hgb (13.7-17.5) gm/dl Hct (40.1-51.0) % MCV (79.0-92.2) fl MCH (25.7-32.2) pg MCHC (32.2-35.5) g/dl RDW Std Deviation (35.1-43.9) fL Plt Count (163-337) K/mm3 MPV (9.4-12.3) fl Neut % (Auto) (34.0-67.9) % Lymph % (Auto) (21.8-53.1) % [place] % (Auto) (5.3-12.2) % Eos % (Auto) (0.8-7.0) Baso % (Auto) (0.1-1.2) % Neut # (Auto) (1.78-5.38) K/mm3 Lymph # (Auto) (1.32-3.57) K/mm3 [place] # (Auto) (0.30-0.82) K/mm3 Eos # (Auto) (0.04-0.54) K/mm3 Baso # (Auto) (0.01-0.08) K/mm3 Manual Slide Review PT (9.7-12.0) SECONDS INR Sodium 141 (136-145) mEq/L Potassium 4.2 (3.5-5.1) mEq/L Chloride 107 (98-107) mEq/L Carbon Dioxide 25 (21-32) mEq/L Anion Gap 13.2 (5-15) BUN 32 H (7-18) mg/dL Creatinine 0.8 (0.7-1.3) mg/dL Est Cr Clr Drug Dosing TNP Estimated GFR (MDRD) > 60 (>60) mL/min BUN/Creatinine Ratio 40.0 H (14-18) Glucose 185 H (70-99) mg/dL Lactic Acid (0.4-2.0) mmol/L Calcium 8.2 L (8.5-10.1) mg/dL Magnesium 2.0 (1.8-2.4) mg/dL Total Bilirubin 2.5 H (0.2-1.0) mg/dL AST 27 (15-37) U/L ALT 80 H (16-63) U/L Alkaline Phosphatase 92 (46-116) U/L Ammonia 39 H (11-32) umol/L Troponin I < 0.017 (0.00-0.056) ng/mL C-Reactive Protein < 0.2 (<1.0) mg/dL Total Protein 5.5 L (6.4-8.2) g/dl Albumin 2.6 L (3.4-5.0) g/dl Globulin 2.9 gm/dL Albumin/Globulin Ratio 0.9 L (1-2) Lipase 108 (73-393) U/L SARS-CoV-2 RNA (FELICITY) Positive H (NEGATIVE) Meds: Medications Generic Name Dose Route Start Last Admin Trade Name Roberta PRN Reason Stop Dose Admin Diphenhydramine HCl 50 mg 07/22/21 19:43 Diphenhydramine 50 Mg/Ml Sdv IVPUSH ASDIRECTED PRN hypersensitivity reaction Epinephrine HCl 0.3 mg 07/22/21 19:43 Epinephrine 1 Mg/Ml Sdv IM ASDIRECTED PRN hypersensitivity reaction Famotidine 20 mg 07/22/21 19:43 Famotidine 20 Mg/2 Ml Sdv IVPUSH ASDIRECTED PRN hypersensitivity reaction Sodium Chloride 1,000 mls @ 1,000 mls/hr 07/22/21 14:30 07/22/21 16:18 Normal Saline IV 1,000 mls/hr .BOLUS CHRISTA Administration CASIRIVIMAB/IMDEVIMAB 10 ml/ 110 mls @ 220 mls/hr 07/22/21 19:43 Sodium Chloride IV 07/22/21 20:12 ONETIME ONE Methylprednisolone Sodium Succinate 125 mg 07/22/21 19:43 Methylprednisolone Sodium Succinate 125 Mg/2 Ml Sdv IVPUSH ASDIRECTED PRN hypersensitivity reaction Sodium Chloride 10 ml 07/22/21 14:28 07/22/21 15:00 Sodium Chloride 0.9% 10 Ml Syringe FLUSH 10 ml ASDIRECTED PRN Administration Keep Vein Open Sodium Chloride 30 ml 07/22/21 19:45 Sodium Chloride 0.9% 10 Ml Syringe FLUSH ASDIRECTED CHRISTA Discontinued Medications Generic Name Dose Route Start Last Admin Trade Name Roberta PRN Reason Stop Dose Admin Sodium Chloride 1,000 mls @ 1,000 mls/hr 07/22/21 17:18 07/22/21 17:24 Normal Saline IV 07/22/21 18:17 1,000 mls/hr ONETIME ONE Administration - Re-Assessments/Exams Free Text/Narrative Re-Assessment/Exam: 07/22/21 17:05 I ordered an IV NS 1L bolus, EKG, CXR, CT of his head and labs. His EKG shows a NSR with no acute changes. 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 No contrast was utilized and difficult to completely exclude a metastasis. If further evaluation for metastasis is needed, consider MRI study without and with gadolinium. Mild generalized atrophy and minimal atherosclerotic calcification within the carotid siphon. No other acute abnormality is appreciated. His CXR shows left ventricular configuration of the heart. Nothing acute is definitely appreciated. His Hgb is low at 10.5. His PT is 14.7. His glucose is 185. His lactic acid is elevated at 3.5. His total bili is elevated at 2.5. His ALT is elevated at 80. His troponin is negative. His CRP is normal. His lipase was negative. I am waiting for his ammonia level. 07/22/21 18:27 His ammonia level was 39. I called [facility] and talked with the oncologist lead ruby on rails developer Dr Hurley and he was able to look at the patient's chart and I sent him the CT of his head. He said the lesion in his brain looked better. He said the brain lesion was felt to be lymphoma and he was offered palliative radiation. He does not think his over all outcome is good. He did not think the patient needed to come down to the [facility]. He did recommend admission to help get the ammonia down and hydrate him. He knows Dr Rowe the patient's oncologist at [facility] and he can update him. I called [facility] in [place] and I am waiting to talk to the hospitalist and possibly the oncologist. 07/22/21 19:40 I talked with the hospitalist Dr Pollock the hospitalist and the oncologist and they accepted the patient pending the results of the COVID test. That test did come back positive. This was surprising given the fact that he was at [facility] and they tested him multiple times. He also has not been around anyone but in the airport and he did wear a mask. I called [facility] back and they cannot take him. I called Dr Molina out hospitalist and he agreed to the admission. Dr Molina wanted me to talk to the oncologist about monoclonal antibodies. I called [facility] back and talked to Dr Cohen and she said it was alright. I put the order in. Departure - Departure Time of Disposition: 19:50 Disposition: Admitted As Inpatient 64 Condition: Poor Clinical Impression: Brain tumor, Confusion, Hyperammonemia, COVID-19, Dehydration - Discharge Information Referrals: Sidney Romano MD [Primary Care Provider] - Forms: ED Department Discharge Sepsis Event Note (ED) - Evaluation Sepsis Screening Result: No Definite Risk - Focused Exam Vital Signs: Vital Signs Temp Pulse Resp BP Pulse Ox 07/22/21 14:14 98.6 F 68 12 154/102 H 99 - My Orders Last 24 Hours: My Active Orders 07/22/21 14:28 Cardiac Monitoring [RC] . DIRECTED UA W/MICROSCOPIC [URIN] Stat Sodium Chloride 0.9% [Saline Flush] 10 ml FLUSH ASDIRECTED PRN Peripheral IV Insertion Adult [OM.PC] Stat 07/22/21 14:30 Peripheral IV Care [RC] . DIRECTED Sodium Chloride 0.9% [Normal Saline] 1,000 ml IV .BOLUS 07/22/21 14:31 Blood Culture x2 Reflex Set [OM.PC] Stat 07/22/21 14:50 BLOOD CULTURE [MREF] Stat 07/22/21 15:00 BLOOD CULTURE [MREF] Stat 07/22/21 19:43 Vital Signs [RC] Q15M Casirivimab/Imdevimab [Regen-Cov 600-600 mg/10Ml (Eua)] 10 ml Sodium Chloride 0.9% [Normal Saline] 100 ml IV ONETIME EPINEPHrine [Adrenalin] 0.3 mg IM ASDIRECTED PRN Famotidine [Pepcid] 20 mg IVPUSH ASDIRECTED PRN diphenhydrAMINE [Benadryl] 50 mg IVPUSH ASDIRECTED PRN methylPREDNISolone Sod Succ [Solu-MEDROL] 125 mg IVPUSH ASDIRECTED PRN 07/22/21 19:45 Sodium Chloride 0.9% [Saline Flush] 30 ml FLUSH ASDIRECTED - Assessment/Plan Last 24 Hours: My Active Orders 07/22/21 14:28 Cardiac Monitoring [RC] . DIRECTED UA W/MICROSCOPIC [URIN] Stat Sodium Chloride 0.9% [Saline Flush] 10 ml FLUSH ASDIRECTED PRN Peripheral IV Insertion Adult [OM.PC] Stat 07/22/21 14:30 Peripheral IV Care [RC] . DIRECTED Sodium Chloride 0.9% [Normal Saline] 1,000 ml IV .BOLUS 07/22/21 14:31 Blood Culture x2 Reflex Set [OM.PC] Stat 07/22/21 14:50 BLOOD CULTURE [MREF] Stat 07/22/21 15:00 BLOOD CULTURE [MREF] Stat 07/22/21 19:43 Vital Signs [RC] Q15M Casirivimab/Imdevimab [Regen-Cov 600-600 mg/10Ml (Eua)] 10 ml Sodium Chloride 0.9% [Normal Saline] 100 ml IV ONETIME EPINEPHrine [Adrenalin] 0.3 mg IM ASDIRECTED PRN Famotidine [Pepcid] 20 mg IVPUSH ASDIRECTED PRN diphenhydrAMINE [Benadryl] 50 mg IVPUSH ASDIRECTED PRN methylPREDNISolone Sod Succ [Solu-MEDROL] 125 mg IVPUSH ASDIRECTED PRN 07/22/21 19:45 Sodium Chloride 0.9% [Saline Flush] 30 ml FLUSH ASDIRECTED
[2021-07-22] MEDS ORDERED: Sodium Chloride 0.9% 1,000 ML IV ONE (17:18)
[2021-07-22] MEDS ORDERED: EPINEPHrine 1 MG/ML SDV IM PRN (19:43)
[2021-07-22] MEDS ORDERED: diphenhydrAMINE 50 MG/ML SDV IVPUSH PRN (19:43)
[2021-07-22] MEDS ORDERED: methylPREDNISolone Sodium Succinate 125 MG/2 ML SDV IVPUSH PRN (19:43)
[2021-07-22] MEDS ORDERED: Famotidine 20 MG/2 ML SDV IVPUSH PRN (19:43)
[2021-07-22] MEDS ORDERED: Sodium Chloride 0.9% 10 ML Syringe FLUSH SCH (19:45)
[2021-07-22] MEDS ORDERED: Ondansetron 4 MG/2 ML SDV IV PRN (21:33)
[2021-07-22] MEDS ORDERED: Acetaminophen 650 MG Supp RECTAL PRN (21:33)
[2021-07-22] MEDS ORDERED: Albuterol 0.083% 2.5 MG/3 ML Neb Soln NEB PRN (21:33)
[2021-07-22] MEDS: Sodium Chloride 0.9% 1,000 ML IV SCH (23:55)
[2021-07-23] MEDS: Sodium Chloride 0.9% 1,000 ML IV SCH (06:25)
[2021-07-23] MEDS: Dexamethasone 4 MG Tab PO SCH ×2 (08:47→20:57)
[2021-07-23] MEDS: Pantoprazole 40 MG Tab.CR PO SCH ×2 (08:47→20:57)
[2021-07-23] MEDS ORDERED: POSACONAZOLE 100 MG PO SCH (09:00)
[2021-07-23] MEDS ORDERED: Enoxaparin 40 MG/0.4 ML Syringe SUBCUT SCH (09:00)
--- NOTE | 2021-07-23 10:42 | PCM.HP.2 ---
H&P History of Present Illness - General Date of Service: 07/23/21 Admit Problem/Dx: Admission Diagnosis/Problem Admission Diagnosis/Problem Confusion Source of Information: Old Records, Provider, RN, RN Notes Reviewed History Limitations: Reports: Altered Mental Status - History of Present Illness Initial Comments - Free Text/Narative: This is a 66-year-old male who presents to our ED on 07/22/2021 via [facility] with confusion, generalized weakness, and anorexia. He has a history of non-Hodgkin's lymphoma which was diagnosed a few years ago and treated at the [facility]. He has reportedly been doing well with this however he was recently diagnosed with colon cancer and was found to have metastasis to the brain. He reportedly saw radiation oncology and they recommended palliative radiation with 5 treatments. He completed these and reportedly had generalized weakness but no effect to his mental status. He arrived home on Thursday and was having difficulty eating. He was also noted to be confused. In the ED he did not know his name, where he was, or approximate time. No recent cough, vomiting, or diarrhea. He has a history of alcoholic liver cirrhosis and reportedly quit drinking back in 2014. In the ED twelve-lead EKG was obtained showing a sinus rhythm at 60 bpm with left axis deviation. Temp was 98.6. Pulse 68. Respirations 12. Blood pressure 154/102. Pulse ox 99%. Labs are obtained showing a WBC of 6.25. Hemoglobin is 10.5. Platelet 49,000. Neutrophils are elevated at 80.3. INR is 1.34. Lactic acid is 3.5. Sodium is 141. Potassium 4.2. Chloride 107. Carbon dioxide 25. Anion gap is 13.2. BUN is 32. Creatinine 0.8. GFR greater than 60. Glucose 185. Calcium 8.2. Magnesium 2.0. Total bilirubin 2.5. AST is 25, ALT 80, alkaline phosphatase 92. Ammonia was elevated at 39. Troponin less than 0.017. CRP was normal at less than 0.2. Protein was 5.5. Albumin 2.6. Lipase 108. SARS-CoV-2 RNA was positive. Patient was given multiple fluid boluses and his lactic acidosis did improve. 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 No contrast was utilized difficult to completely exclude metastasis. If further evaluation for metastasis is needed, consider MRI study with and with out gadolinium. Mild generalized atrophy and minimal atherosclerotic calcification within the carotid siphon is noted but no other acute abnormality. Chest x-ray was obtained showing left ventricular configuration of the heart but nothing acute. ED provider did have multiple conversations with the patient's [facility] oncologist, Dr. Hurley. He reported that the brain lesion looked better and said it was felt to be lymphoma. Patient was offered palliative radiation providers not feel the outcome will be good. ED provider called hospitalist oncologist and patient was accepted in [place] at [place] pending his Covid test. Surprisingly the patient's Covid test did return positive and [place] reports now they are unable to take him. Patient was given monoclonal antibodies after it was okayed by Dr. Cohen, oncologist in [place]. He was subsequently admitted to the medical floor here for management of his hyperammonemia, COVID-19, lactic acidosis, confusion, and generalized weakness. He carries a history of recurrent pneumonia, GERD, liver cirrhosis, prostate disorder, anemia, immunosuppression, non-Hodgkin's lymphoma, prostate cancer, colon cancer with mets to the brain. He is a full code. His PCP is Dr. Marcelino. His neurologist is Dr. Mike. His radiation oncologist is Dr. Kennedy. He also sees Dr. Miller and Dr. Martines with oncology. - Related Data Allergies/Adverse Reactions: Allergies Allergy/AdvReac Type Severity Reaction Status Date / Time No Known Allergies Allergy Verified 07/23/21 06:05 Home Medications: Home Meds Pantoprazole [ProTONIX] 40 mg PO BID 05/23/20 [History] Posaconazole 300 mg PO DAILY 07/22/21 [History] dexAMETHasone [Dexamethasone] 4 mg PO BID 07/22/21 [History] Past Medical History - Past Health History Medical/Surgical History: Denies Medical/Surgical History HEENT History: Reports: Hard of Hearing Respiratory History: Reports: Pneumonia, Recurrent Gastrointestinal History: Reports: Cirrhosis, GERD Genitourinary History: Reports: Prostate Disorder Endocrine/Metabolic History: Reports: Obesity/BMI 30+ Hematologic History: Reports: Anemia Immunologic History: Reports: Immunosuppression Oncologic (Cancer) History: Reports: Colon, Non-Hodgkin's Lymphoma, Prostate Dermatologic History: Reports: Cellulitis - Past Surgical History HEENT Surgical History: Reports: None GI Surgical History: Reports: Colon, Colonoscopy, EGD, Hernia, Abdominal Other GI Surgeries/Procedures: colon resecion Male Surgical History: Reports: None Endocrine Surgical History: Reports: None Musculoskeletal Surgical History: Reports: Other (See Below) Oncologic Surgical History: Reports: None, Other (See Below) Dermatological Surgical History: Reports: Other (See Below) Social & Family History - Family History Family Medical History: No Pertinent Family History - Tobacco Use Tobacco Use Status *Q: Unknown Ever Used Tobacco Second Hand Smoke Exposure: No - Caffeine Use Caffeine Use: Reports: None - Recreational Drug Use Recreational Drug Use: No - Living Situation & Occupation Living situation: Reports: , with Spouse Occupation: Retired H&P Review of Systems - Review of Systems: Review Of Systems: Unable To Obtain Reason Not Obtained: Altered mental status Review of Systems Comment:: Patient currently denies any pain or shortness of breath however he is very confused. Exam - Exam Exam: See Below - Vital Signs Vital Signs: Last Vital Signs Temp 98.6 F 07/23/21 08:00 Pulse 62 07/23/21 08:00 Resp 19 07/23/21 08:00 BP 142/76 H 07/23/21 08:00 Pulse Ox 97 07/23/21 08:00 Weight: 185 lb 12.8 oz - Exam Quality Assessment: DVT Prophylaxis. No: Supplemental Oxygen, Urinary Catheter General: Alert, Cooperative. No: Oriented, Mild Distress HEENT: Conjunctiva Clear, EACs Clear, Mucosa Moist & [place], Posterior Pharynx Clear Neck: Supple, Trachea Midline Lungs: Clear to Auscultation, Normal Respiratory Effort Cardiovascular: Regular Rate, Bradycardia GI/Abdominal Exam: Normal Bowel Sounds, Soft, Non-Tender, Distended (Male) Exam: Deferred Rectal (Males) Exam: Deferred Back Exam: Normal Inspection, Full Range of Motion Extremities: Normal Inspection, Normal Range of Motion, Non-Tender, No Pedal Edema, Normal Capillary Refill Peripheral Pulses: 2+: Radial (L), Radial (R), Dorsalis Pedis (L), Dorsalis Pedis (R) Skin: Warm, Dry, Intact Neurological: Cranial Nerves Intact (Limited but grossly) Psychiatric: Alert - Patient Data Lab Results Last 24 hrs: Laboratory Results - last 24 hr 07/22/21 07/22/21 07/22/21 Range/Units 14:50 14:50 14:50 WBC 6.25 (4.23-9.07) K/mm3 RBC 3.40 L (4.63-6.08) M/mm3 Hgb 10.5 L (13.7-17.5) gm/dl Hct 32.5 L (40.1-51.0) % MCV 95.6 H (79.0-92.2) fl MCH 30.9 (25.7-32.2) pg MCHC 32.3 (32.2-35.5) g/dl RDW Std Deviation 66.1 H (35.1-43.9) fL Plt Count 49 L (163-337) K/mm3 MPV 12.0 (9.4-12.3) fl Neut % (Auto) 80.3 H (34.0-67.9) % Lymph % (Auto) 14.1 L (21.8-53.1) % Sac % (Auto) 4.3 L (5.3-12.2) % Eos % (Auto) 0 L (0.8-7.0) Baso % (Auto) 0.2 (0.1-1.2) % Neut # (Auto) 5.02 (1.78-5.38) K/mm3 Lymph # (Auto) 0.88 L (1.32-3.57) K/mm3 Sac # (Auto) 0.27 L (0.30-0.82) K/mm3 Eos # (Auto) 0.00 L (0.04-0.54) K/mm3 Baso # (Auto) 0.01 (0.01-0.08) K/mm3 Manual Slide Review Abnormal smear PT 14.7 H D (9.7-12.0) SECONDS INR 1.34 Sodium (136-145) mEq/L Potassium (3.5-5.1) mEq/L Chloride (98-107) mEq/L Carbon Dioxide (21-32) mEq/L Anion Gap (5-15) BUN (7-18) mg/dL Creatinine (0.7-1.3) mg/dL Est Cr Clr Drug Dosing Estimated GFR (MDRD) (>60) mL/min BUN/Creatinine Ratio (14-18) Glucose (70-99) mg/dL Lactic Acid 3.5 H* (0.4-2.0) mmol/L Calcium (8.5-10.1) mg/dL Magnesium (1.8-2.4) mg/dL Total Bilirubin (0.2-1.0) mg/dL AST (15-37) U/L ALT (16-63) U/L Alkaline Phosphatase (46-116) U/L Ammonia (11-32) umol/L Troponin I (0.00-0.056) ng/mL C-Reactive Protein (<1.0) mg/dL Total Protein (6.4-8.2) g/dl Albumin (3.4-5.0) g/dl Globulin gm/dL Albumin/Globulin Ratio (1-2) Lipase (73-393) U/L SARS-CoV-2 RNA (FELICITY) (NEGATIVE) 07/22/21 07/22/21 07/22/21 Range/Units 15:00 16:33 17:50 WBC (4.23-9.07) K/mm3 RBC (4.63-6.08) M/mm3 Hgb (13.7-17.5) gm/dl Hct (40.1-51.0) % MCV (79.0-92.2) fl MCH (25.7-32.2) pg MCHC (32.2-35.5) g/dl RDW Std Deviation (35.1-43.9) fL Plt Count (163-337) K/mm3 MPV (9.4-12.3) fl Neut % (Auto) (34.0-67.9) % Lymph % (Auto) (21.8-53.1) % Sac % (Auto) (5.3-12.2) % Eos % (Auto) (0.8-7.0) Baso % (Auto) (0.1-1.2) % Neut # (Auto) (1.78-5.38) K/mm3 Lymph # (Auto) (1.32-3.57) K/mm3 Sac # (Auto) (0.30-0.82) K/mm3 Eos # (Auto) (0.04-0.54) K/mm3 Baso # (Auto) (0.01-0.08) K/mm3 Manual Slide Review PT (9.7-12.0) SECONDS INR Sodium 141 (136-145) mEq/L Potassium 4.2 (3.5-5.1) mEq/L Chloride 107 (98-107) mEq/L Carbon Dioxide 25 (21-32) mEq/L Anion Gap 13.2 (5-15) BUN 32 H (7-18) mg/dL Creatinine 0.8 (0.7-1.3) mg/dL Est Cr Clr Drug Dosing TNP Estimated GFR (MDRD) > 60 (>60) mL/min BUN/Creatinine Ratio 40.0 H (14-18) Glucose 185 H (70-99) mg/dL Lactic Acid (0.4-2.0) mmol/L Calcium 8.2 L (8.5-10.1) mg/dL Magnesium 2.0 (1.8-2.4) mg/dL Total Bilirubin 2.5 H (0.2-1.0) mg/dL AST 27 (15-37) U/L ALT 80 H (16-63) U/L Alkaline Phosphatase 92 (46-116) U/L Ammonia 39 H (11-32) umol/L Troponin I < 0.017 (0.00-0.056) ng/mL C-Reactive Protein < 0.2 (<1.0) mg/dL Total Protein 5.5 L (6.4-8.2) g/dl Albumin 2.6 L (3.4-5.0) g/dl Globulin 2.9 gm/dL Albumin/Globulin Ratio 0.9 L (1-2) Lipase 108 (73-393) U/L SARS-CoV-2 RNA (FELICITY) Positive H (NEGATIVE) 07/22/21 07/23/21 07/23/21 Range/Units 20:33 02:44 05:38 WBC 4.14 L (4.23-9.07) K/mm3 RBC 2.86 L (4.63-6.08) M/mm3 Hgb 8.7 L D (13.7-17.5) gm/dl Hct 27.5 L (40.1-51.0) % MCV 96.2 H (79.0-92.2) fl MCH 30.4 (25.7-32.2) pg MCHC 31.6 L (32.2-35.5) g/dl RDW Std Deviation 66.1 H (35.1-43.9) fL Plt Count 40 L (163-337) K/mm3 MPV 10.8 (9.4-12.3) fl Neut % (Auto) 77.8 H (34.0-67.9) % Lymph % (Auto) 15.9 L (21.8-53.1) % Sac % (Auto) 5.3 (5.3-12.2) % Eos % (Auto) 0 L (0.8-7.0) Baso % (Auto) 0.0 L (0.1-1.2) % Neut # (Auto) 3.22 (1.78-5.38) K/mm3 Lymph # (Auto) 0.66 L (1.32-3.57) K/mm3 Sac # (Auto) 0.22 L (0.30-0.82) K/mm3 Eos # (Auto) 0.00 L (0.04-0.54) K/mm3 Baso # (Auto) 0.00 L (0.01-0.08) K/mm3 Manual Slide Review Abnormal smear PT (9.7-12.0) SECONDS INR Sodium (136-145) mEq/L Potassium (3.5-5.1) mEq/L Chloride (98-107) mEq/L Carbon Dioxide (21-32) mEq/L Anion Gap (5-15) BUN (7-18) mg/dL Creatinine (0.7-1.3) mg/dL Est Cr Clr Drug Dosing Estimated GFR (MDRD) (>60) mL/min BUN/Creatinine Ratio (14-18) Glucose (70-99) mg/dL Lactic Acid 2.7 H* 2.0 (0.4-2.0) mmol/L Calcium (8.5-10.1) mg/dL Magnesium (1.8-2.4) mg/dL Total Bilirubin (0.2-1.0) mg/dL AST (15-37) U/L ALT (16-63) U/L Alkaline Phosphatase (46-116) U/L Ammonia (11-32) umol/L Troponin I (0.00-0.056) ng/mL C-Reactive Protein (<1.0) mg/dL Total Protein (6.4-8.2) g/dl Albumin (3.4-5.0) g/dl Globulin gm/dL Albumin/Globulin Ratio (1-2) Lipase (73-393) U/L SARS-CoV-2 RNA (FELICITY) (NEGATIVE) 07/23/21 07/23/21 Range/Units 05:38 05:38 WBC (4.23-9.07) K/mm3 RBC (4.63-6.08) M/mm3 Hgb (13.7-17.5) gm/dl Hct (40.1-51.0) % MCV (79.0-92.2) fl MCH (25.7-32.2) pg MCHC (32.2-35.5) g/dl RDW Std Deviation (35.1-43.9) fL Plt Count (163-337) K/mm3 MPV (9.4-12.3) fl Neut % (Auto) (34.0-67.9) % Lymph % (Auto) (21.8-53.1) % Sac % (Auto) (5.3-12.2) % Eos % (Auto) (0.8-7.0) Baso % (Auto) (0.1-1.2) % Neut # (Auto) (1.78-5.38) K/mm3 Lymph # (Auto) (1.32-3.57) K/mm3 Sac # (Auto) (0.30-0.82) K/mm3 Eos # (Auto) (0.04-0.54) K/mm3 Baso # (Auto) (0.01-0.08) K/mm3 Manual Slide Review PT (9.7-12.0) SECONDS INR Sodium 141 (136-145) mEq/L Potassium 4.0 (3.5-5.1) mEq/L Chloride 112 H (98-107) mEq/L Carbon Dioxide 22 (21-32) mEq/L Anion Gap 11.0 (5-15) BUN 27 H (7-18) mg/dL Creatinine 0.7 (0.7-1.3) mg/dL Est Cr Clr Drug Dosing 101.00 Estimated GFR (MDRD) > 60 (>60) mL/min BUN/Creatinine Ratio 38.6 H (14-18) Glucose 159 H (70-99) mg/dL Lactic Acid 1.4 (0.4-2.0) mmol/L Calcium 7.6 L (8.5-10.1) mg/dL Magnesium 1.8 (1.8-2.4) mg/dL Total Bilirubin 2.2 H (0.2-1.0) mg/dL AST 22 (15-37) U/L ALT 57 (16-63) U/L Alkaline Phosphatase 72 (46-116) U/L Ammonia (11-32) umol/L Troponin I (0.00-0.056) ng/mL C-Reactive Protein (<1.0) mg/dL Total Protein 4.5 L (6.4-8.2) g/dl Albumin 2.1 L (3.4-5.0) g/dl Globulin 2.4 gm/dL Albumin/Globulin Ratio 0.9 L (1-2) Lipase (73-393) U/L SARS-CoV-2 RNA (FELICITY) (NEGATIVE) Result Diagrams: 07/23/21 05:38 07/23/21 05:38 Sepsis Event Note - Evaluation Sepsis Screening Result: No Definite Risk - Focused Exam Vital Signs: Vital Signs Temp Pulse Resp BP Pulse Ox 07/23/21 08:00 98.6 F 62 19 142/76 H 97 07/23/21 05:00 99 07/23/21 04:45 98.1 F 61 12 135/74 - Problem List (1) Generalized weakness SNOMED Code(s): 52135834 ICD Code: R53.1 - WEAKNESS Status: Acute Priority: High Current Visit: Yes (2) COVID-19 SNOMED Code(s): 416202097 ICD Code: U07.1 - COVID-19 Status: Acute Priority: High Current Visit: Yes (3) Confusion SNOMED Code(s): 597152799 ICD Code: R41.0 - DISORIENTATION, UNSPECIFIED Status: Acute Priority: High Current Visit: Yes (4) Lactic acidosis SNOMED Code(s): 62229667 ICD Code: E87.2 - ACIDOSIS Status: Resolved Priority: High Current Visit: Yes (5) Hyperammonemia SNOMED Code(s): 6434581 ICD Code: E72.20 - DISORDER OF UREA CYCLE METABOLISM, UNSPECIFIED Status: Acute Priority: Medium Current Visit: Yes (6) Anemia SNOMED Code(s): 536758295 ICD Code: D64.9 - ANEMIA, UNSPECIFIED Status: Acute Priority: Medium Current Visit: Yes Qualifiers: Anemia type: other cause Other causes of anemia: antineoplastic ch emotherapy Qualified Code(s): D64.81 - Anemia due to antineoplastic chemo therapy; T45.1X5A - Adverse effect of antineoplastic and immunosuppressive drugs, initial encounter (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 SNOMED Code(s): 530907088, 368968529 ICD Code: C85.16 - UNSPECIFIED B-CELL LYMPHOMA, INTRAPELVIC LYMPH NODES Status: Chronic Priority: Medium Current Visit: Yes Qualifiers: B-cell lymphoma type: diffuse large B-cell Qualified Code(s): C83.36 - Diffuse large B-cell lymphoma, intrapelvic lymph nodes (8) Colon cancer SNOMED Code(s): 300143530 ICD Code: C18.9 - MALIGNANT NEOPLASM OF COLON, UNSPECIFIED Status: Chronic Priority: High Current Visit: Yes Qualifiers: Colon location: unspecified part of colon Qualified Code(s): C18.9 - M alignant neoplasm of colon, unspecified (9) 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 SNOMED Code(s): 722939427, 578710709 ICD Code: C18.9 - MALIGNANT NEOPLASM OF COLON, UNSPECIFIED; C79.31 - SECONDARY MALIGNANT NEOPLASM OF BRAIN Status: Chronic Priority: High Current Visit: Yes (10) Thrombocytopenia SNOMED Code(s): 714225258 ICD Code: D69.6 - THROMBOCYTOPENIA, UNSPECIFIED Status: Chronic Priority: High Current Visit: Yes (11) Hyperbilirubinemia SNOMED Code(s): 78755744 ICD Code: E80.6 - OTHER DISORDERS OF BILIRUBIN METABOLISM Status: Acute Current Visit: Yes (12) Lymphopenia Status: Acute Priority: Medium Current Visit: Yes (13) Liver cirrhosis, alcoholic SNOMED Code(s): 772281180 ICD Code: K70.30 - ALCOHOLIC CIRRHOSIS OF LIVER WITHOUT ASCITES Status: Chronic Priority: Medium Current Visit: Yes Qualifiers: Ascites presence: with ascites Qualified Code(s): K70.31 - Alcoholic cirrhosis of liver with ascites (14) GERD (gastroesophageal reflux disease) SNOMED Code(s): 525375096 ICD Code: K21.9 - GASTRO-ESOPHAGEAL REFLUX DISEASE WITHOUT ESOPHAGITIS Status: Acute Current Visit: Yes (15) Recurrent pneumonia SNOMED Code(s): 626739999 ICD Code: J18.9 - PNEUMONIA, UNSPECIFIED ORGANISM Status: Acute Current Visit: Yes (16) Prostate disorder SNOMED Code(s): 16371651 ICD Code: N42.9 - DISORDER OF PROSTATE, UNSPECIFIED Status: Acute Current Visit: Yes (17) Immunosuppression due to chronic steroid use SNOMED Code(s): 751875242 ICD Code: D84.821 - IMMUNODEFICIENCY DUE TO DRUGS; T38.0X5A - ADVERSE EFFECT OF GLUCOCORT/SYNTH ANALOG, INIT; 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 Status: Acute Current Visit: Yes (18) History of prostate cancer SNOMED Code(s): 482271797 ICD Code: Z85.46 - PERSONAL HISTORY OF MALIGNANT NEOPLASM OF PROSTATE Status: Acute Current Visit: Yes (19) History of colon resection SNOMED Code(s): 166960832 ICD Code: Z90.49 - ACQUIRED ABSENCE OF OTHER SPECIFIED PARTS OF DIGESTIVE TRACT Status: Acute Current Visit: Yes (20) Dehydration SNOMED Code(s): 42981900 ICD Code: E86.0 - DEHYDRATION Status: Acute Priority: High Current Visit: Yes Problem List Initiated/Reviewed/Updated: Yes Orders Last 24hrs: Active Orders 24 hr Category Date Time Status Patient Status [ADT] Routine ADT 07/22/21 22:41 Active Cardiac Monitoring [RC] . DIRECTED Care 07/22/21 14:28 Active Nurse Communication: Isolation [RC] ASDIRECTED Care 07/23/21 09:52 Active Oxygen Therapy [RC] PRN Care 07/22/21 21:33 Active RT Aerosol Therapy [RC] ASDIRECTED Care 07/22/21 21:37 Active Up With Assistance [RC] ASDIRECTED Care 07/22/21 21:33 Active VTE/DVT Education [RC] PER UNIT ROUTINE Care 07/22/21 21:33 Active Vital Signs [RC] Q4HR Care 07/22/21 21:33 Active Consult to Case Management/Statistics Manager [CONS] Cons 07/23/21 09:53 Active Routine PT Evaluation and Treatment [CONS] Routine Cons 07/22/21 21:33 Active Regular Diet [DIET] Diet 07/22/21 Dinner Active BASIC METABOLIC PANEL,BMP [CHEM] AM Lab 07/24/21 05:11 Ordered BASIC METABOLIC PANEL,BMP [CHEM] AM Lab 07/25/21 05:11 Ordered BASIC METABOLIC PANEL,BMP [CHEM] AM Lab 07/26/21 05:11 Ordered BASIC METABOLIC PANEL,BMP [CHEM] AM Lab 07/27/21 05:11 Ordered BLOOD CULTURE [MREF] Stat Lab 07/22/21 14:50 Received BLOOD CULTURE [MREF] Stat Lab 07/22/21 15:00 Received CBC WITH AUTO DIFF [HEME] AM Lab 07/24/21 05:11 Ordered CBC WITH AUTO DIFF [HEME] AM Lab 07/25/21 05:11 Ordered CBC WITH AUTO DIFF [HEME] AM Lab 07/26/21 05:11 Ordered CBC WITH AUTO DIFF [HEME] AM Lab 07/27/21 05:11 Ordered CRP [C-REACTIVE PROTEIN] [CHEM] AM Lab 07/24/21 05:11 Ordered CRP [C-REACTIVE PROTEIN] [CHEM] AM Lab 07/25/21 05:11 Ordered CRP [C-REACTIVE PROTEIN] [CHEM] AM Lab 07/26/21 05:11 Ordered CRP [C-REACTIVE PROTEIN] [CHEM] AM Lab 07/27/21 05:11 Ordered MAGNESIUM [CHEM] AM Lab 07/24/21 05:11 Ordered MAGNESIUM [CHEM] AM Lab 07/25/21 05:11 Ordered MAGNESIUM [CHEM] AM Lab 07/26/21 05:11 Ordered MAGNESIUM [CHEM] AM Lab 07/27/21 05:11 Ordered UA W/MICROSCOPIC [URIN] Routine Lab 07/23/21 10:35 Ordered Acetaminophen [TylenoL] Med 07/22/21 21:33 Active 650 mg PO Q4H PRN Acetaminophen [Tylenol] Med 07/22/21 21:33 Active 650 mg RECTAL Q4H PRN Albuterol [Proventil Neb Soln] Med 07/22/21 21:33 Active 2.5 mg NEB Q2H PRN Enoxaparin [Lovenox] Med 07/23/21 09:00 Pending 40 mg SUBCUT DAILY Ondansetron [Zofran] Med 07/22/21 21:33 Active 4 mg IV Q6H PRN Pantoprazole [ProTONIX] Med 07/23/21 09:00 Active 40 mg PO BID Patient's Own Medication [Ptom] Med 07/23/21 09:00 Active 0 each PO DAILY Sodium Chloride 0.9% [Saline Flush] Med 07/22/21 14:28 Active 10 ml FLUSH ASDIRECTED PRN dexAMETHasone Med 07/23/21 09:00 Active 4 mg PO BID Blood Culture x2 Reflex Set [OM.PC] Stat [facility] 07/22/21 14:31 Ordered Isolation [COMM] Stat [facility] 07/23/21 09:52 Ordered Peripheral IV Insertion Adult [OM.PC] Stat [facility] 07/22/21 14:28 Ordered Code Status [Resuscitation Status] Routine Resus Stat 07/22/21 22:41 Ordered Medication Orders Acetaminophen (Acetaminophen 325 Mg Tab) 650 mg PO Q4H PRN PRN Reason: Pain (Mild 1-3)/fever Acetaminophen (Acetaminophen 650 Mg Supp) 650 mg RECTAL Q4H PRN PRN Reason: Pain (mild 1-3) Albuterol (Albuterol 0.083% 2.5 Mg/3 Ml Neb Soln) 2.5 mg NEB Q2H PRN PRN Reason: Shortness Of Breath/wheezing Dexamethasone (Dexamethasone 4 Mg Tab) 4 mg PO BID [facility] Last Admin: 07/23/21 08:47 Dose: 4 mg Documented by: GERONIMO Enoxaparin Sodium (Enoxaparin 40 Mg/0.4 Ml Syringe) 40 mg SUBCUT DAILY [facility] Ondansetron HCl (Ondansetron 4 Mg/2 Ml Sdv) 4 mg IV Q6H PRN PRN Reason: Nausea/Vomiting Pantoprazole Sodium (Pantoprazole 40 Mg Tab.Cr) 40 mg PO BID [facility] Last Admin: 07/23/21 08:47 Dose: 40 mg Documented by: GERONIMO Posaconazole [ Posaconazole] 100 Mg Tablet.Dr 0 each PO DAILY [facility] Sodium Chloride (Sodium Chloride 0.9% 10 Ml Syringe) 10 ml FLUSH ASDIRECTED PRN PRN Reason: Keep Vein Open Last Admin: 07/22/21 15:00 Dose: 10 ml Documented by: BURAK Assessment/Plan Comment:: COVID-19 Lymphopenia Immunosuppression due to chronic steroid use * O2 as needed to keep saturations >90% * IS/Acapella * Given monoclonal antibodies * Continue home dexamethasone * Continuous pulse oximetry * Telemetry * PRN albuterol nebulizer * Blood cultures pending * Daily labs * Airborne/contact precautions * Will hold off remdesivir at this point Generalized weakness * PT/OT * CM/SW Thrombocytopenia * Acute on chronic * Pharmacologic VTE prophylaxis contraindicated * Monitor - consider transfusion if platelet cound <10K Lactic acidosis, Resolved Dehydration * Given IV fluids in ED * Will start cefepime and vancomycin empirically based on toxic granulation on smear and chronic immunosuppression * Procalcitonin pending * Sepsis screen: Unknown if bacterial infection at this point pending cultures/UA/Procalcitonin. WBC greater than 4 but less than 12. No tachycardia, no tachypnea. No fever. Does not meet criteria. 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 Marcelino Neurologist: Dr. Mike Radiation oncologist: Dr. Kennedy. Oncologists: Dr. Miller, Dr. Martines and locally Dr. Rowe DVT prophylaxis: SCDs/ROSANGELA vasquez (Pharmacological VTE prophylaxis contraindicated) Disposition: Admitted inpatient for treatment and further workup of Hyperammonemia, generalized weakness, and confusion. Pt. is also COVID-19 positive. Patients updated by phone on 07/23/2021. Confirmed full code status. - Mortality Measure Prognosis:: Poor (Very poor prognosis given metastatic colon cancer)
[2021-07-23] MEDS: Cefepime 2 GM in Sodium Chloride 0.9% 50 ML IV SCH ×2 (12:07→19:04)
[2021-07-23] MEDS ORDERED: Vancomycin 1.75 GM in Sodium Chloride 0.9% 500 ML IV ONE (12:30)
[2021-07-23] MEDS: Lactulose Soln 10 GM/15 ML 30 ML UD Cup PO SCH ×2 (15:03→20:57)
[2021-07-23] MEDS: POSACONAZOLE 100 MG PO SCH (15:46)
[2021-07-23] MEDS: Acetaminophen 325 MG Tab PO PRN (19:22)
--- NOTE | 2021-07-23 23:08 | PCM.SN.2 ---
- Free Text/Narrative Note: 07/23/21 9930-0021 IV started times 1 attempt left inner wrist with 22 guage. Secured with op site and flushes well.Walker
[2021-07-23] MEDS: Vancomycin 1 GM, Vancomycin 250 MG in Sodium Chloride 0.9% 250 ML IV SCH (23:59)
[2021-07-24] MEDS: Cefepime 2 GM in Sodium Chloride 0.9% 50 ML IV SCH ×3 (02:30→18:31)
--- NOTE | 2021-07-24 07:21 | PCM.PN ---
- General Info Date of Service: 07/24/21 Admission Dx/Problem (Free Text): Admission Diagnosis/Problem Admission Diagnosis/Problem Confusion Functional Status: Reports: Pain Controlled, Tolerating Diet, Ambulating, Urinating. Denies: New Symptoms - Review of Systems Systems Review Comment:: Unable to reliably obtain ROS due to significant confusion from patient. Patient denies any pain or shortness of breath states "I am doing okay." Patient is more alert today than yesterday and is able to say his name and date of . He is able to carry on a basic conversation although he will trail off at times. He is also clearly tired. - Patient Data Vitals - Most Recent: Last Vital Signs Temp 98.2 F 07/24/21 04:05 Pulse 70 07/24/21 04:05 Resp 16 07/24/21 04:05 BP 160/87 H 07/24/21 04:34 Pulse Ox 98 07/24/21 04:05 Weight - Most Recent: 183 lb 6.4 oz I&O - Last 24 Hours: Intake & Output 07/23/21 07/24/21 07/24/21 22:59 06:59 14:59 Intake Total 886 600 Output Total 80 Balance 806 600 Lab Results Last 24 Hours: Laboratory Results - last 24 hr 07/23/21 07/23/21 07/23/21 Range/Units 05:38 05:38 12:05 WBC (4.23-9.07) K/mm3 RBC (4.63-6.08) M/mm3 Hgb (13.7-17.5) gm/dl Hct (40.1-51.0) % MCV (79.0-92.2) fl MCH (25.7-32.2) pg MCHC (32.2-35.5) g/dl RDW Std Deviation (35.1-43.9) fL Plt Count (163-337) K/mm3 MPV (9.4-12.3) fl Neut % (Auto) (34.0-67.9) % Lymph % (Auto) (21.8-53.1) % Kenton % (Auto) (5.3-12.2) % Eos % (Auto) (0.8-7.0) Baso % (Auto) (0.1-1.2) % Neut # (Auto) (1.78-5.38) K/mm3 Lymph # (Auto) (1.32-3.57) K/mm3 Kenton # (Auto) (0.30-0.82) K/mm3 Eos # (Auto) (0.04-0.54) K/mm3 Baso # (Auto) (0.01-0.08) K/mm3 Manual Slide Review Abnormal smear Sodium (136-145) mEq/L Potassium (3.5-5.1) mEq/L Chloride (98-107) mEq/L Carbon Dioxide (21-32) mEq/L Anion Gap (5-15) BUN (7-18) mg/dL Creatinine (0.7-1.3) mg/dL Est Cr Clr Drug Dosing mL/min Estimated GFR (MDRD) (>60) mL/min BUN/Creatinine Ratio (14-18) Glucose (70-99) mg/dL Calcium (8.5-10.1) mg/dL Magnesium (1.8-2.4) mg/dL C-Reactive Protein (<1.0) mg/dL Procalcitonin 0.18 H ng/mL Urine Color Yellow (Yellow) Urine Appearance Clear (Clear) Urine pH 6.0 (5.0-8.0) Ur Specific Herscher 1.025 (1.005-1.030) Urine Protein Negative (Negative) Urine Glucose (UA) Negative (Negative) Urine Ketones Negative (Negative) Urine Occult Blood Negative (Negative) Urine Nitrite Negative (Negative) Urine Bilirubin Negative (Negative) Urine Urobilinogen 1.0 (0.2-1.0) Ur Leukocyte Esterase Negative (Negative) Urine RBC Not seen (0-5) /hpf Urine WBC Not seen (0-5) /hpf Ur Squamous Epith Cells 0-5 (0-5) /hpf Urine Bacteria Not seen (FEW) /hpf Urine Mucus Not seen (FEW) /hpf 07/24/21 07/24/21 Range/Units 05:02 05:02 WBC 5.67 (4.23-9.07) K/mm3 RBC 3.01 L (4.63-6.08) M/mm3 Hgb 9.2 L (13.7-17.5) gm/dl Hct 28.8 L (40.1-51.0) % MCV 95.7 H (79.0-92.2) fl MCH 30.6 (25.7-32.2) pg MCHC 31.9 L (32.2-35.5) g/dl RDW Std Deviation 64.9 H (35.1-43.9) fL Plt Count 42 L (163-337) K/mm3 MPV 10.4 (9.4-12.3) fl Neut % (Auto) 83.6 H (34.0-67.9) % Lymph % (Auto) 11.1 L (21.8-53.1) % Kenton % (Auto) 4.2 L (5.3-12.2) % Eos % (Auto) 0 L (0.8-7.0) Baso % (Auto) 0.2 (0.1-1.2) % Neut # (Auto) 4.74 (1.78-5.38) K/mm3 Lymph # (Auto) 0.63 L (1.32-3.57) K/mm3 Kenton # (Auto) 0.24 L (0.30-0.82) K/mm3 Eos # (Auto) 0.00 L (0.04-0.54) K/mm3 Baso # (Auto) 0.01 (0.01-0.08) K/mm3 Manual Slide Review Sodium 141 (136-145) mEq/L Potassium 4.0 (3.5-5.1) mEq/L Chloride 109 H (98-107) mEq/L Carbon Dioxide 21 (21-32) mEq/L Anion Gap 15.0 (5-15) BUN 29 H (7-18) mg/dL Creatinine 0.9 (0.7-1.3) mg/dL Est Cr Clr Drug Dosing 73.44 mL/min Estimated GFR (MDRD) > 60 (>60) mL/min BUN/Creatinine Ratio 32.2 H (14-18) Glucose 207 H (70-99) mg/dL Calcium 8.0 L (8.5-10.1) mg/dL Magnesium 2.0 (1.8-2.4) mg/dL C-Reactive Protein <0.2 (<1.0) mg/dL Procalcitonin ng/mL Urine Color (Yellow) Urine Appearance (Clear) Urine pH (5.0-8.0) Ur Specific Herscher (1.005-1.030) Urine Protein (Negative) Urine Glucose (UA) (Negative) Urine Ketones (Negative) Urine Occult Blood (Negative) Urine Nitrite (Negative) Urine Bilirubin (Negative) Urine Urobilinogen (0.2-1.0) Ur Leukocyte Esterase (Negative) Urine RBC (0-5) /hpf Urine WBC (0-5) /hpf Ur Squamous Epith Cells (0-5) /hpf Urine Bacteria (FEW) /hpf Urine Mucus (FEW) /hpf Med Orders - Current: Current Medications Acetaminophen (Acetaminophen 325 Mg Tab) 650 mg PO Q4H PRN PRN Reason: Pain (Mild 1-3)/fever Last Admin: 07/23/21 19:22 Dose: 650 mg Documented by: Acetaminophen (Acetaminophen 650 Mg Supp) 650 mg RECTAL Q4H PRN PRN Reason: Pain (mild 1-3) Albuterol (Albuterol 0.083% 2.5 Mg/3 Ml Neb Soln) 2.5 mg NEB Q2H PRN PRN Reason: Shortness Of Breath/wheezing Dexamethasone (Dexamethasone 4 Mg Tab) 4 mg PO BID [facility] Last Admin: 07/23/21 20:57 Dose: 4 mg Documented by: Cefepime HCl 2 gm/ Sodium (Chloride) 50 mls @ 100 mls/hr IV Q8H [facility] Last Admin: 07/24/21 02:30 Dose: 100 mls/hr Documented by: Vancomycin HCl 1 gm/Vancomycin HCl 250 mg/ Sodium Chloride 250 mls @ 166.667 mls/hr IV Q12H [facility] Last Admin: 07/23/21 23:59 Dose: 166.667 mls/hr Documented by: Lactulose (Lactulose Soln 10 Gm/15 Ml 30 Ml Ud Cup) 20 gm PO TID [facility] Last Admin: 07/23/21 20:57 Dose: 20 gm Documented by: Ondansetron HCl (Ondansetron 4 Mg/2 Ml Sdv) 4 mg IV Q6H PRN PRN Reason: Nausea/Vomiting Pantoprazole Sodium (Pantoprazole 40 Mg Tab.Cr) 40 mg PO BID [facility] Last Admin: 07/23/21 20:57 Dose: 40 mg Documented by: Posaconazole [ Posaconazole] 100 Mg Tablet.Dr Ptom 0 each PO DAILY [facility] Last Admin: 07/23/21 15:46 Dose: 3 each Documented by: Sodium Chloride (Sodium Chloride 0.9% 10 Ml Syringe) 10 ml FLUSH ASDIRECTED PRN PRN Reason: Keep Vein Open Last Admin: 07/22/21 15:00 Dose: 10 ml Documented by: Vancomycin HCl (Pharmacy To Dose - Vancomycin) 1 dose .XX ASDIRECTED PRN PRN Reason: RX TO DOSE VANCO Discontinued Medications Diphenhydramine HCl (Diphenhydramine 50 Mg/Ml Sdv) 50 mg IVPUSH ASDIRECTED PRN PRN Reason: hypersensitivity reaction Enoxaparin Sodium (Enoxaparin 40 Mg/0.4 Ml Syringe) 40 mg SUBCUT DAILY [facility] Last Admin: 07/23/21 12:25 Dose: Not Given Documented by: Epinephrine HCl (Epinephrine 1 Mg/Ml Sdv) 0.3 mg IM ASDIRECTED PRN PRN Reason: hypersensitivity reaction Famotidine (Famotidine 20 Mg/2 Ml Sdv) 20 mg IVPUSH ASDIRECTED PRN PRN Reason: hypersensitivity reaction Sodium Chloride (Normal Saline) 1,000 mls @ 1,000 mls/hr IV .BOLUS [facility] Last Admin: 07/22/21 16:18 Dose: 1,000 mls/hr Documented by: Sodium Chloride (Normal Saline) 1,000 mls @ 1,000 mls/hr IV ONETIME ONE Stop: 07/22/21 18:17 Last Admin: 07/22/21 17:24 Dose: 1,000 mls/hr Documented by: CASIRIVIMAB/IMDEVIMAB 10 ml/ (Sodium Chloride) 110 mls @ 220 mls/hr IV ONETIME ONE Stop: 07/22/21 20:12 Last Admin: 07/22/21 20:42 Dose: 220 mls/hr Documented by: Sodium Chloride (Normal Saline) 1,000 mls @ 125 mls/hr IV ASDIRECTED [facility]RISTA Last Admin: 07/23/21 06:25 Dose: 125 mls/hr Documented by: Vancomycin HCl 1.75 gm/ Sodium (Chloride) 500 mls @ 250 mls/hr IV ONETIME ONE Stop: 07/23/21 14:29 Last Admin: 07/23/21 12:46 Dose: 250 mls/hr Documented by: Methylprednisolone Sodium Succinate (Methylprednisolone Sodium Succinate 125 Mg/2 Ml Sdv) 125 mg IVPUSH ASDIRECTED PRN PRN Reason: hypersensitivity reaction Posaconazole [ Posaconazole] 100 Mg Tablet.Dr 0 each PO DAILY [facility] Last Admin: 07/23/21 12:26 Dose: Not Given Documented by: Sodium Chloride (Sodium Chloride 0.9% 10 Ml Syringe) 30 ml FLUSH ASDIRECTED CHRISTA - Exam Quality Assessment: DVT Prophylaxis. No: Supplemental Oxygen, Urine Catheter Urinary Catheter Total Time: 0Days 7Hours General: Alert, Cooperative, No Acute Distress. No: Oriented HEENT: Pupils Equal, Pupils Reactive, Mucous Membr. Moist/[place] Neck: Supple, Trachea Midline Lungs: Clear to Auscultation, Normal Respiratory Effort Cardiovascular: Regular Rate, Regular Rhythm GI/Abdominal Exam: Normal Bowel Sounds, Soft, Non-Tender, Distended, Hepatomegaly, Splenomegaly. No: Guarding, Rigid (Male) Exam: Deferred Back Exam: Normal Inspection, Full Range of Motion Extremities: Normal Inspection, Normal Range of Motion, Non-Tender, No Pedal Edema, Normal Capillary Refill Peripheral Pulses: 3+: Radial (L), Radial (R), Dorsalis Pedis (L), Dorsalis Pedis (R) Skin: Warm, Dry, Intact Neurological: No New Focal Deficit Psy/Mental Status: Alert - Patient Data Lab Results Last 24 hrs: Laboratory Results - last 24 hr 07/23/21 07/23/21 07/23/21 Range/Units 05:38 05:38 12:05 WBC (4.23-9.07) K/mm3 RBC (4.63-6.08) M/mm3 Hgb (13.7-17.5) gm/dl Hct (40.1-51.0) % MCV (79.0-92.2) fl MCH (25.7-32.2) pg MCHC (32.2-35.5) g/dl RDW Std Deviation (35.1-43.9) fL Plt Count (163-337) K/mm3 MPV (9.4-12.3) fl Neut % (Auto) (34.0-67.9) % Lymph % (Auto) (21.8-53.1) % Kenton % (Auto) (5.3-12.2) % Eos % (Auto) (0.8-7.0) Baso % (Auto) (0.1-1.2) % Neut # (Auto) (1.78-5.38) K/mm3 Lymph # (Auto) (1.32-3.57) K/mm3 [place]on # (Auto) (0.30-0.82) K/mm3 Eos # (Auto) (0.04-0.54) K/mm3 Baso # (Auto) (0.01-0.08) K/mm3 Manual Slide Review Abnormal smear Sodium (136-145) mEq/L Potassium (3.5-5.1) mEq/L Chloride (98-107) mEq/L Carbon Dioxide (21-32) mEq/L Anion Gap (5-15) BUN (7-18) mg/dL Creatinine (0.7-1.3) mg/dL Est Cr Clr Drug Dosing mL/min Estimated GFR (MDRD) (>60) mL/min BUN/Creatinine Ratio (14-18) Glucose (70-99) mg/dL Calcium (8.5-10.1) mg/dL Magnesium (1.8-2.4) mg/dL C-Reactive Protein (<1.0) mg/dL Procalcitonin 0.18 H ng/mL Urine Color Yellow (Yellow) Urine Appearance Clear (Clear) Urine pH 6.0 (5.0-8.0) Ur Specific Herscher 1.025 (1.005-1.030) Urine Protein Negative (Negative) Urine Glucose (UA) Negative (Negative) Urine Ketones Negative (Negative) Urine Occult Blood Negative (Negative) Urine Nitrite Negative (Negative) Urine Bilirubin Negative (Negative) Urine Urobilinogen 1.0 (0.2-1.0) Ur Leukocyte Esterase Negative (Negative) Urine RBC Not seen (0-5) /hpf Urine WBC Not seen (0-5) /hpf Ur Squamous Epith Cells 0-5 (0-5) /hpf Urine Bacteria Not seen (FEW) /hpf Urine Mucus Not seen (FEW) /hpf 07/24/21 07/24/21 Range/Units 05:02 05:02 WBC 5.67 (4.23-9.07) K/mm3 RBC 3.01 L (4.63-6.08) M/mm3 Hgb 9.2 L (13.7-17.5) gm/dl Hct 28.8 L (40.1-51.0) % MCV 95.7 H (79.0-92.2) fl MCH 30.6 (25.7-32.2) pg MCHC 31.9 L (32.2-35.5) g/dl RDW Std Deviation 64.9 H (35.1-43.9) fL Plt Count 42 L (163-337) K/mm3 MPV 10.4 (9.4-12.3) fl Neut % (Auto) 83.6 H (34.0-67.9) % Lymph % (Auto) 11.1 L (21.8-53.1) % Kenton % (Auto) 4.2 L (5.3-12.2) % Eos % (Auto) 0 L (0.8-7.0) Baso % (Auto) 0.2 (0.1-1.2) % Neut # (Auto) 4.74 (1.78-5.38) K/mm3 Lymph # (Auto) 0.63 L (1.32-3.57) K/mm3 [place]on # (Auto) 0.24 L (0.30-0.82) K/mm3 Eos # (Auto) 0.00 L (0.04-0.54) K/mm3 Baso # (Auto) 0.01 (0.01-0.08) K/mm3 Manual Slide Review Sodium 141 (136-145) mEq/L Potassium 4.0 (3.5-5.1) mEq/L Chloride 109 H (98-107) mEq/L Carbon Dioxide 21 (21-32) mEq/L Anion Gap 15.0 (5-15) BUN 29 H (7-18) mg/dL Creatinine 0.9 (0.7-1.3) mg/dL Est Cr Clr Drug Dosing 73.44 mL/min Estimated GFR (MDRD) > 60 (>60) mL/min BUN/Creatinine Ratio 32.2 H (14-18) Glucose 207 H (70-99) mg/dL Calcium 8.0 L (8.5-10.1) mg/dL Magnesium 2.0 (1.8-2.4) mg/dL C-Reactive Protein <0.2 (<1.0) mg/dL Procalcitonin ng/mL Urine Color (Yellow) Urine Appearance (Clear) Urine pH (5.0-8.0) Ur Specific Herscher (1.005-1.030) Urine Protein (Negative) Urine Glucose (UA) (Negative) Urine Ketones (Negative) Urine Occult Blood (Negative) Urine Nitrite (Negative) Urine Bilirubin (Negative) Urine Urobilinogen (0.2-1.0) Ur Leukocyte Esterase (Negative) Urine RBC (0-5) /hpf Urine WBC (0-5) /hpf Ur Squamous Epith Cells (0-5) /hpf Urine Bacteria (FEW) /hpf Urine Mucus (FEW) /hpf Result Diagrams: 07/24/21 05:02 07/24/21 05:02 Sepsis Event Note - Evaluation Sepsis Screening Result: No Definite Risk - Focused Exam Vital Signs: Vital Signs Temp Pulse Resp BP Pulse Ox Pulse Ox 07/24/21 04:34 160/87 H 07/24/21 04:05 98.2 F 70 16 165/142 H 98 07/23/21 22:55 97.9 F 87 18 157/96 H 97 07/23/21 21:33 97 07/23/21 20:34 99.1 F 103 H 22 H 175/103 H 100 07/23/21 19:44 97.3 F 102 H 16 157/91 H 99 - Problem List & Annotations (1) Generalized weakness SNOMED Code(s): 84901034 Code(s): R53.1 - WEAKNESS Status: Acute Priority: High Current Visit: Yes (2) COVID-19 SNOMED Code(s): 618075459 Code(s): U07.1 - COVID-19 Status: Acute Priority: High Current Visit: Yes (3) Confusion SNOMED Code(s): 272532745 Code(s): R41.0 - DISORIENTATION, UNSPECIFIED Status: Acute Priority: High Current Visit: Yes (4) Lactic acidosis SNOMED Code(s): 10597574 Code(s): E87.2 - ACIDOSIS Status: Resolved Priority: High Current Visit: Yes (5) Hyperammonemia SNOMED Code(s): 7120036 Code(s): E72.20 - DISORDER OF UREA CYCLE METABOLISM, UNSPECIFIED Status: Acute Priority: Medium Current Visit: Yes (6) Anemia SNOMED Code(s): 805584756 Code(s): D64.9 - ANEMIA, UNSPECIFIED Status: Acute Priority: Medium Current Visit: Yes Qualifiers: Anemia type: other cause Other causes of anemia: antineoplastic chemotherapy Qualified Code(s): D64.81 - Anemia due to antineoplastic chemotherapy; T45.1X5A - Adverse effect of antineoplastic and immunosuppressive drugs, initial encounter (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 SNOMED Code(s): 023957039, 616443429 Code(s): C85.16 - UNSPECIFIED B-CELL LYMPHOMA, INTRAPELVIC LYMPH NODES S tatus: Chronic Priority: Medium Current Visit: Yes Qualifiers: B-cell lymphoma type: diffuse large B-cell Qualified Code(s): C83.36 - Diffuse large B-cell lymphoma, intrapelvic lymph nodes (8) Colon cancer SNOMED Code(s): 138290030 Code(s): C18.9 - MALIGNANT NEOPLASM OF COLON, UNSPECIFIED Status: Chronic Priority: High Current Visit: Yes Qualifiers: Colon location: unspecified part of colon Qualified Code(s): C18.9 - Malignant neoplasm of colon, unspecified (9) 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 SNOMED Code(s): 850646193, 585701325 Code(s): C18.9 - MALIGNANT NEOPLASM OF COLON, UNSPECIFIED; C79.31 - SECONDARY MALIGNANT NEOPLASM OF BRAIN Status: Chronic Priority: High Current Visit: Yes (10) Thrombocytopenia SNOMED Code(s): 646947654 Code(s): D69.6 - THROMBOCYTOPENIA, UNSPECIFIED Status: Chronic Priority: High Current Visit: Yes (11) Hyperbilirubinemia SNOMED Code(s): 96947570 Code(s): E80.6 - OTHER DISORDERS OF BILIRUBIN METABOLISM Status: Acute Current Visit: Yes (12) Lymphopenia Status: Resolved Priority: Medium Current Visit: Yes (13) Liver cirrhosis, alcoholic SNOMED Code(s): 817640000 Code(s): K70.30 - ALCOHOLIC CIRRHOSIS OF LIVER WITHOUT ASCITES Status: Chronic Priority: Medium Current Visit: Yes Qualifiers: Ascites presence: with ascites Qualified Code(s): K70.31 - Alcoholic cirrhosis of liver with ascites (14) GERD (gastroesophageal reflux disease) SNOMED Code(s): 383106688 Code(s): K21.9 - GASTRO-ESOPHAGEAL REFLUX DISEASE WITHOUT ESOPHAGITIS Status: Acute Current Visit: Yes (15) Recurrent pneumonia SNOMED Code(s): 937154116 Code(s): J18.9 - PNEUMONIA, UNSPECIFIED ORGANISM Status: Acute Current Visit: Yes (16) Prostate disorder SNOMED Code(s): 16067055 Code(s): N42.9 - DISORDER OF PROSTATE, UNSPECIFIED Status: Acute Current Visit: Yes (17) Immunosuppression due to chronic steroid use SNOMED Code(s): 805478782 Code(s): D84.821 - IMMUNODEFICIENCY DUE TO DRUGS; T38.0X5A - ADVERSE EFFECT OF GLUCOCORT/SYNTH ANALOG, INIT; Z79.52 - SENIOR CARE (CURRENT) USE OF SYSTEMIC STEROIDS Status: Acute Current Visit: Yes (18) History of prostate cancer SNOMED Code(s): 290215677 Code(s): Z85.46 - PERSONAL HISTORY OF MALIGNANT NEOPLASM OF PROSTATE Status: Acute Current Visit: Yes (19) History of colon resection SNOMED Code(s): 274200443 Code(s): Z90.49 - ACQUIRED ABSENCE OF OTHER SPECIFIED PARTS OF DIGESTIVE TRACT Status: Acute Current Visit: Yes (20) Dehydration SNOMED Code(s): 47266172 Code(s): E86.0 - DEHYDRATION Status: Resolved Priority: High Current Visit: Yes (21) Aspergillosis SNOMED Code(s): 77979600 Code(s): B44.9 - ASPERGILLOSIS, UNSPECIFIED Status: Chronic Priority: Medium Current Visit: Yes (22) Hepatic encephalopathy SNOMED Code(s): 32782121 Code(s): K72.90 - HEPATIC FAILURE, UNSPECIFIED WITHOUT COMA Status: Acute Priority: High Current Visit: Yes (23) Ascites SNOMED Code(s): 683747355 Code(s): R18.8 - OTHER ASCITES Status: Acute Priority: High Current Visit: Yes Qualifiers: Ascites type: due to alcoholic cirrhosis Qualified Code(s): K70.31 - Alcoholic cirrhosis of liver with ascites - Problem List Review Problem List Initiated/Reviewed/Updated: Yes - My Orders Last 24 Hours: My Active Orders 07/23/21 09:52 Nurse Communication: Isolation [RC] ASDIRECTED Isolation [COMM] Stat 07/23/21 09:53 Consult to Case Management/Radiation Officer [CONS] Routine 07/23/21 10:41 Antiembolic Devices [RC] PER UNIT ROUTINE Sequential Compression Device [OM.PC] Routine ROSANGELA Hose [Antiembolic Hose] [OM.PC] Routine 07/23/21 10:42 VTE Pharmacological Contraindications [AST] Click To Edit 07/23/21 11:15 Pharmacy to Dose - Vancomycin 1 dose .XX ASDIRECTED PRN 07/23/21 11:30 Cefepime [Maxipime] 2 gm Sodium Chloride 0.9% [Normal Saline] 50 ml IV Q8H 07/23/21 14:40 MISC TEST DAILY 07/23/21 15:00 Lactulose [Cephulac] 20 gm PO TID 07/24/21 00:30 Vancomycin 1 gm Vancomycin 250 mg Sodium Chloride 0.9% [Normal Saline] 250 ml IV Q12H 07/24/21 05:02 AMMONIA VENOUS [CHEM] AM CBC WITH AUTO DIFF [HEME] AM 07/25/21 05:11 AMMONIA VENOUS [CHEM] AM BASIC METABOLIC PANEL,BMP [CHEM] AM CBC WITH AUTO DIFF [HEME] AM CRP [C-REACTIVE PROTEIN] [CHEM] AM MAGNESIUM [CHEM] AM 07/26/21 05:11 AMMONIA VENOUS [CHEM] AM BASIC METABOLIC PANEL,BMP [CHEM] AM CBC WITH AUTO DIFF [HEME] AM CRP [C-REACTIVE PROTEIN] [CHEM] AM MAGNESIUM [CHEM] AM 07/27/21 05:11 BASIC METABOLIC PANEL,BMP [CHEM] AM CBC WITH AUTO DIFF [HEME] AM CRP [C-REACTIVE PROTEIN] [CHEM] AM MAGNESIUM [CHEM] AM - Assessment Assessment:: 07/24/2021 This is a 66-year-old male with a history of prostate cancer, colon cancer, non- Hodgkin's lymphoma, metastasis to the brain, and chronic alcoholic cirrhosis who was admitted due to significant confusion, lactic acidosis, and severe generalized weakness. Today the patient is more alert and able to carry on a basic conversation although he does trail off and remains generally quite confused. Patient does state that his belly is quite full and that he has some mild tenderness. Because of this we will order a CT scan of the abdomen and pelvis. Suspect this is due to ascites from his liver failure and significant IV fluids given due to lactic acidosis. We will start him on spironolactone 100 mg currently and also start Lasix with dose pending results of CT scan. His white count today is 5.67. Hemoglobin is up to 9.2. Platelet has improved slightly to 42,000. Neutrophils are elevated at 83.6. Sodium is 141. Potassium 4.0. Chloride 109. Carbon dioxide 21. Anion gap is 15. BUN is 29. Creatinine 0.9. GFR greater than 60. Glucose is 207. Calcium is 8.0. Magnesium 2.0. Ammonia is 45. CRP is less than 0.2. Procalcitonin from yesterday 0.18. UA was negative. Patient continues on meropenem and vancomycin pending blood cultures. No fevers throughout his stay. Patient remains in airborne and contact isolation due to Covid but remains on room air with saturations in the upper 90s. Patient's ammonia did increase today as noted in nursing reports patient has yet to have a bowel movement despite starting on Lasix yesterday. Will increase Lasix dosing and monitor for bowel movements. Patient was working with PT and OT today and did ambulate a bit, which is also an improvement. Family is adamant about taking patient home. Patient's daughter contacted at the request of patient and his and update given. They have no concerns with patient staying with us at this time. We will continue current plan and update based on abdominal CT scan results. - Plan Plan:: COVID-19 Lymphopenia, resolved Immunosuppression due to chronic steroid use * O2 as needed to keep saturations >90% * IS/Acapella * Given monoclonal antibodies * Continue home dexamethasone * Continuous pulse oximetry * Telemetry * PRN albuterol nebulizer * Blood cultures pending * Daily labs * Airborne/contact precautions * Will hold off remdesivir at this point Generalized weakness * PT/OT * CM/SW Thrombocytopenia * Acute on chronic * Pharmacologic VTE prophylaxis contraindicated * Monitor - consider transfusion if platelet cound <10K Lactic acidosis, Resolved Dehydration, resolved * Given IV fluids in ED * Continue cefepime and vancomycin empirically based on toxic granulation on smear and chronic immunosuppression * Procalcitonin -0.18 * Sepsis screen: Unknown if bacterial infection at this point pending cultures/UA/Procalcitonin. WBC greater than 4 but less than 12. No tachycardia, no tachypnea. No fever. Does not meet criteria. 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 Marcelino Neurologist: Dr. Mike Radiation oncologist: Dr. Kennedy. Oncologists: Dr. Miller, Dr. Martines and locally Dr. Rwoe DVT prophylaxis: SCDs/ROSANGELA vasquez (Pharmacological VTE prophylaxis contraindicated) Disposition: Admitted inpatient for treatment and further workup of Hyperammonemia, generalized weakness, and confusion. Pt. is also COVID-19 positive. Patients updated by phone on 07/23/2021. Confirmed full code status. Daughter updated by phone on 07/24/2021 at patient and request.
[2021-07-24] MEDS: Pantoprazole 40 MG Tab.CR PO SCH ×2 (08:51→20:35)
[2021-07-24] MEDS: Dexamethasone 4 MG Tab PO SCH ×2 (08:51→20:35)
[2021-07-24] MEDS: Lactulose Soln 10 GM/15 ML 30 ML UD Cup PO SCH ×3 (08:51→20:35)
[2021-07-24] MEDS: POSACONAZOLE 100 MG PO SCH (09:03)
[2021-07-24] MEDS: Acetaminophen 325 MG Tab PO PRN ×2 (09:19→19:23)
[2021-07-24] MEDS: amLODIPine 5 MG Tab PO SCH (09:20)
[2021-07-24] MEDS: Spironolactone 100 MG Tab PO SCH (11:31)
[2021-07-24] MEDS: Vancomycin 1 GM, Vancomycin 250 MG in Sodium Chloride 0.9% 250 ML IV SCH ×2 (12:21→23:41)
[2021-07-24] MEDS: Thiamine 100 MG Tab PO SCH (12:38)
--- NOTE | 2021-07-24 12:40 | CT ---
CT abdomen and pelvis Technique: Multiple axial sections were obtained from above the dome of the diaphragm inferiorly through the pubic symphysis. Intravenous contrast and oral contrast were not utilized. Reconstructed coronal and sagittal images were obtained. Comparison: Prior CT abdomen and pelvis study of 04/29/21. Findings: Visualized lung bases show nothing acute. Scattered cystic change is seen within both lower lungs. Liver shows diffuse cirrhosis. Gallbladder is seen and shows a small gallstone. Prominent ascites is seen around the liver and spleen. Ascites continues down the paracolic gutters into the pelvis. This ascites has significantly increased in amount from previous exam. Pancreas shows no discrete abnormality. Surgical clips are seen around the aorta. Inferior right kidney shows a cyst measuring 2.0 cm. Small calcification is seen within the inferior left kidney which is stable. Abdominal aorta shows atherosclerotic calcification which continues into the iliac vessels. No aneurysm is seen. No retroperitoneal adenopathy is noted. Prior right colon surgery is seen with anastomotic sutures being seen within the transverse colon. Bladder is somewhat distended. No pelvic mass or adenopathy is noted. Bilateral fat-containing inguinal hernias are seen. No discrete bowel dilatation is seen. Bone window settings were obtained which show mild scattered degenerative change. Impression: 1. Prominent ascites with evidence of prior cirrhosis. Ascites is increased from prior exam. 2. Other findings as noted above which appear to be chronic. Diagnostic code #3
[2021-07-24] MEDS ORDERED: Furosemide 20 MG/2 ML VIAL IVPUSH ONE (12:45)
[2021-07-24] MEDS: Morphine 2 MG/ML SYRINGE IVPUSH PRN (21:20)
[2021-07-25] MEDS: Cefepime 2 GM in Sodium Chloride 0.9% 50 ML IV SCH ×3 (03:52→18:30)
--- NOTE | 2021-07-25 07:07 | PCM.PN ---
- General Info Date of Service: 07/25/21 Admission Dx/Problem (Free Text): Admission Diagnosis/Problem Admission Diagnosis/Problem Confusion Functional Status: Reports: Pain Controlled, Tolerating Diet, Ambulating, Urinating. Denies: New Symptoms - Review of Systems General: Reports: Weakness, Fatigue. Denies: Fever, Malaise, Chills HEENT: Reports: No Symptoms. Denies: Headaches, Sore Throat Pulmonary: Reports: No Symptoms. Denies: Shortness of Breath, Cough, Sputum, Wheezing Cardiovascular: Reports: No Symptoms. Denies: Chest Pain, Palpitations, Dyspnea on Exertion, Edema Gastrointestinal: Reports: Abdominal Pain (Generalized - improved ). Denies: Constipation, Diarrhea, Nausea, Vomiting Genitourinary: Reports: No Symptoms. Denies: Pain Musculoskeletal: Reports: No Symptoms Skin: Reports: No Symptoms. Denies: Cyanosis Neurological: Reports: Confusion (Improved ), Pre-Existing Deficit (History of alcoholic cirrhosis with elevated ammonia levels. Active brain tumor.), Trouble Speaking (Aphasia), Difficulty Walking, Weakness, Gait Disturbance. Denies: Dizziness, Headache, Numbness, Seizure, Syncope, Tingling Psychiatric: Reports: No Symptoms - Patient Data Vitals - Most Recent: Last Vital Signs Temp 98.8 F 07/25/21 03:54 Pulse 78 07/25/21 03:54 Resp 18 07/25/21 03:54 BP 155/80 H 07/25/21 03:54 Pulse Ox 99 07/25/21 03:54 Weight - Most Recent: 181 lb 11.2 oz I&O - Last 24 Hours: Intake & Output 07/24/21 07/25/21 07/25/21 22:59 06:59 14:59 Intake Total 900 400 Output Total 125 600 Balance 775 -200 Lab Results Last 24 Hours: Laboratory Results - last 24 hr 07/24/21 07/24/21 07/25/21 Range/Units 05:02 05:02 05:57 WBC 7.36 (4.23-9.07) K/mm3 RBC 3.14 L (4.63-6.08) M/mm3 Hgb 9.6 L (13.7-17.5) gm/dl Hct 30.0 L (40.1-51.0) % MCV 95.5 H (79.0-92.2) fl MCH 30.6 (25.7-32.2) pg MCHC 32.0 L (32.2-35.5) g/dl RDW Std Deviation 66.9 H (35.1-43.9) fL Plt Count 48 L (163-337) K/mm3 MPV 10.6 (9.4-12.3) fl Neut % (Auto) 82.8 H (34.0-67.9) % Lymph % (Auto) 11.8 L (21.8-53.1) % [place] % (Auto) 4.3 L (5.3-12.2) % Eos % (Auto) 0 L (0.8-7.0) Baso % (Auto) 0.1 (0.1-1.2) % Neut # (Auto) 6.09 H (1.78-5.38) K/mm3 Lymph # (Auto) 0.87 L (1.32-3.57) K/mm3 [place] # (Auto) 0.32 (0.30-0.82) K/mm3 Eos # (Auto) 0.00 L (0.04-0.54) K/mm3 Baso # (Auto) 0.01 (0.01-0.08) K/mm3 Manual Slide Review Abnormal smear Abnormal smear Sodium (136-145) mEq/L Potassium (3.5-5.1) mEq/L Chloride (98-107) mEq/L Carbon Dioxide (21-32) mEq/L Anion Gap (5-15) BUN (7-18) mg/dL Creatinine (0.7-1.3) mg/dL Est Cr Clr Drug Dosing mL/min Estimated GFR (MDRD) (>60) mL/min BUN/Creatinine Ratio (14-18) Glucose (70-99) mg/dL Calcium (8.5-10.1) mg/dL Total Bilirubin (0.2-1.0) mg/dL AST (15-37) U/L ALT (16-63) U/L Alkaline Phosphatase (46-116) U/L Ammonia 45 H (11-32) umol/L Total Protein (6.4-8.2) g/dl Albumin (3.4-5.0) g/dl Globulin gm/dL Albumin/Globulin Ratio (1-2) 07/25/21 07/25/21 Range/Units 05:57 05:57 WBC (4.23-9.07) K/mm3 RBC (4.63-6.08) M/mm3 Hgb (13.7-17.5) gm/dl Hct (40.1-51.0) % MCV (79.0-92.2) fl MCH (25.7-32.2) pg MCHC (32.2-35.5) g/dl RDW Std Deviation (35.1-43.9) fL Plt Count (163-337) K/mm3 MPV (9.4-12.3) fl Neut % (Auto) (34.0-67.9) % Lymph % (Auto) (21.8-53.1) % [place] % (Auto) (5.3-12.2) % Eos % (Auto) (0.8-7.0) Baso % (Auto) (0.1-1.2) % Neut # (Auto) (1.78-5.38) K/mm3 Lymph # (Auto) (1.32-3.57) K/mm3 [place] # (Auto) (0.30-0.82) K/mm3 Eos # (Auto) (0.04-0.54) K/mm3 Baso # (Auto) (0.01-0.08) K/mm3 Manual Slide Review Sodium 141 (136-145) mEq/L Potassium 4.0 (3.5-5.1) mEq/L Chloride 108 H (98-107) mEq/L Carbon Dioxide 25 (21-32) mEq/L Anion Gap 12.0 (5-15) BUN 26 H (7-18) mg/dL Creatinine 1.0 (0.7-1.3) mg/dL Est Cr Clr Drug Dosing 66.10 mL/min Estimated GFR (MDRD) > 60 (>60) mL/min BUN/Creatinine Ratio 26.0 H (14-18) Glucose 199 H (70-99) mg/dL Calcium 8.1 L (8.5-10.1) mg/dL Total Bilirubin 2.7 H (0.2-1.0) mg/dL AST 22 (15-37) U/L ALT 63 (16-63) U/L Alkaline Phosphatase 81 (46-116) U/L Ammonia < 10 L (11-32) umol/L Total Protein 5.0 L (6.4-8.2) g/dl Albumin 2.4 L (3.4-5.0) g/dl Globulin 2.6 gm/dL Albumin/Globulin Ratio 0.9 L (1-2) Ashwin Results Last 24 Hours: Microbiology 07/22/21 14:50 Blood Culture - Preliminary Blood - Venous - Lab Draw 07/22/21 15:00 Blood Culture - Preliminary Blood - Venous Med Orders - Current: Current Medications Acetaminophen (Acetaminophen 325 Mg Tab) 650 mg PO Q4H PRN PRN Reason: Pain (Mild 1-3)/fever Last Admin: 07/24/21 19:23 Dose: 650 mg Documented by: Acetaminophen (Acetaminophen 650 Mg Supp) 650 mg RECTAL Q4H PRN PRN Reason: Pain (mild 1-3) Albuterol (Albuterol 0.083% 2.5 Mg/3 Ml Neb Soln) 2.5 mg NEB Q2H PRN PRN Reason: Shortness Of Breath/wheezing Amlodipine Besylate (Amlodipine 5 Mg Tab) 5 mg PO DAILY [facility] Last Admin: 07/24/21 09:20 Dose: 5 mg Documented by: Dexamethasone (Dexamethasone 4 Mg Tab) 4 mg PO BID [facility] Last Admin: 07/24/21 20:35 Dose: 4 mg Documented by: Cefepime HCl 2 gm/ Sodium (Chloride) 50 mls @ 100 mls/hr IV Q8H [facility] Last Admin: 07/25/21 03:52 Dose: 100 mls/hr Documented by: Vancomycin HCl 1 gm/Vancomycin HCl 250 mg/ Sodium Chloride 250 mls @ 166.667 mls/hr IV Q12H [facility] Last Admin: 07/24/21 23:41 Dose: 166.667 mls/hr Documented by: Lactulose (Lactulose Soln 10 Gm/15 Ml 30 Ml Ud Cup) 30 gm PO TID [facility] Last Admin: 07/24/21 20:35 Dose: 30 gm Documented by: Morphine Sulfate (Morphine 2 Mg/Ml Syringe) 2 mg IVPUSH Q4H PRN PRN Reason: Pain (severe 7-10) Last Admin: 07/24/21 21:20 Dose: 2 mg Documented by: Ondansetron HCl (Ondansetron 4 Mg/2 Ml Sdv) 4 mg IV Q6H PRN PRN Reason: Nausea/Vomiting Pantoprazole Sodium (Pantoprazole 40 Mg Tab.Cr) 40 mg PO BID [facility] Last Admin: 07/24/21 20:35 Dose: 40 mg Documented by: Posaconazole [ Posaconazole] 100 Mg Tablet.Dr Ptom 0 each PO DAILY [facility] Last Admin: 07/24/21 09:03 Dose: 3 each Documented by: Sodium Chloride (Sodium Chloride 0.9% 10 Ml Syringe) 10 ml FLUSH ASDIRECTED PRN PRN Reason: Keep Vein Open Last Admin: 07/22/21 15:00 Dose: 10 ml Documented by: Spironolactone (Spironolactone 100 Mg Tab) 100 mg PO DAILY [facility] Last Admin: 07/24/21 11:31 Dose: 100 mg Documented by: Thiamine HCl (Thiamine 100 Mg Tab) 100 mg PO DAILY [facility] Last Admin: 07/24/21 12:38 Dose: 100 mg Documented by: Vancomycin HCl (Pharmacy To Dose - Vancomycin) 1 dose .XX ASDIRECTED PRN PRN Reason: RX TO DOSE VANCO Discontinued Medications Diphenhydramine HCl (Diphenhydramine 50 Mg/Ml Sdv) 50 mg IVPUSH ASDIRECTED PRN PRN Reason: hypersensitivity reaction Enoxaparin Sodium (Enoxaparin 40 Mg/0.4 Ml Syringe) 40 mg SUBCUT DAILY [facility] Last Admin: 07/23/21 12:25 Dose: Not Given Documented by: Epinephrine HCl (Epinephrine 1 Mg/Ml Sdv) 0.3 mg IM ASDIRECTED PRN PRN Reason: hypersensitivity reaction Famotidine (Famotidine 20 Mg/2 Ml Sdv) 20 mg IVPUSH ASDIRECTED PRN PRN Reason: hypersensitivity reaction Furosemide (Furosemide 20 Mg/2 Ml Vial) 20 mg IVPUSH ONETIME ONE Stop: 07/24/21 12:46 Last Admin: 07/24/21 13:51 Dose: 20 mg Documented by: Sodium Chloride (Normal Saline) 1,000 mls @ 1,000 mls/hr IV .BOLUS [facility] Last Admin: 07/22/21 16:18 Dose: 1,000 mls/hr Documented by: Sodium Chloride (Normal Saline) 1,000 mls @ 1,000 mls/hr IV ONETIME ONE Stop: 07/22/21 18:17 Last Admin: 07/22/21 17:24 Dose: 1,000 mls/hr Documented by: CASIRIVIMAB/IMDEVIMAB 10 ml/ (Sodium Chloride) 110 mls @ 220 mls/hr IV ONETIME ONE Stop: 07/22/21 20:12 Last Admin: 07/22/21 20:42 Dose: 220 mls/hr Documented by: Sodium Chloride (Normal Saline) 1,000 mls @ 125 mls/hr IV ASDIRECTED [facility] Last Admin: 07/23/21 06:25 Dose: 125 mls/hr Documented by: Vancomycin HCl 1.75 gm/ Sodium (Chloride) 500 mls @ 250 mls/hr IV ONETIME ONE Stop: 07/23/21 14:29 Last Admin: 07/23/21 12:46 Dose: 250 mls/hr Documented by: Lactulose (Lactulose Soln 10 Gm/15 Ml 30 Ml Ud Cup) 20 gm PO TID [facility] Last Admin: 07/24/21 08:51 Dose: 20 gm Documented by: Methylprednisolone Sodium Succinate (Methylprednisolone Sodium Succinate 125 Mg/2 Ml Sdv) 125 mg IVPUSH ASDIRECTED PRN PRN Reason: hypersensitivity reaction Posaconazole [ Posaconazole] 100 Mg Tablet.Dr 0 each PO DAILY [facility] Last Admin: 07/23/21 12:26 Dose: Not Given Documented by: Sodium Chloride (Sodium Chloride 0.9% 10 Ml Syringe) 30 ml FLUSH ASDIRECTED CHRISTA - Exam Quality Assessment: DVT Prophylaxis. No: Supplemental Oxygen Urinary Catheter Total Time: 0Days 7Hours General: Alert, Oriented ([place] - greatly improved ), Cooperative, No Acute Distress HEENT: Pupils Equal, Pupils Reactive, Mucous Membr. Moist/[place] Neck: Supple, Trachea Midline Lungs: Clear to Auscultation, Normal Respiratory Effort Cardiovascular: Regular Rate, Regular Rhythm GI/Abdominal Exam: Normal Bowel Sounds, Soft, Non-Tender, Distended (but improved ), Tender (mild generalized - but improved ), Hepatomegaly, Splenomegaly. No: Guarding, Rigid (Male) Exam: Deferred Back Exam: Normal Inspection, Full Range of Motion Extremities: Normal Inspection, Normal Range of Motion, Non-Tender, Normal Capillary Refill, Pedal Edema (trace - 1+) Skin: Warm, Dry, Intact Neurological: No New Focal Deficit Psy/Mental Status: Alert, Normal Affect, Normal Mood - Patient Data Lab Results Last 24 hrs: Laboratory Results - last 24 hr 07/24/21 07/24/21 07/25/21 Range/Units 05:02 05:02 05:57 WBC 7.36 (4.23-9.07) K/mm3 RBC 3.14 L (4.63-6.08) M/mm3 Hgb 9.6 L (13.7-17.5) gm/dl Hct 30.0 L (40.1-51.0) % MCV 95.5 H (79.0-92.2) fl MCH 30.6 (25.7-32.2) pg MCHC 32.0 L (32.2-35.5) g/dl RDW Std Deviation 66.9 H (35.1-43.9) fL Plt Count 48 L (163-337) K/mm3 MPV 10.6 (9.4-12.3) fl Neut % (Auto) 82.8 H (34.0-67.9) % Lymph % (Auto) 11.8 L (21.8-53.1) % [place] % (Auto) 4.3 L (5.3-12.2) % Eos % (Auto) 0 L (0.8-7.0) Baso % (Auto) 0.1 (0.1-1.2) % Neut # (Auto) 6.09 H (1.78-5.38) K/mm3 Lymph # (Auto) 0.87 L (1.32-3.57) K/mm3 [place] # (Auto) 0.32 (0.30-0.82) K/mm3 Eos # (Auto) 0.00 L (0.04-0.54) K/mm3 Baso # (Auto) 0.01 (0.01-0.08) K/mm3 Manual Slide Review Abnormal smear Abnormal smear Sodium (136-145) mEq/L Potassium (3.5-5.1) mEq/L Chloride (98-107) mEq/L Carbon Dioxide (21-32) mEq/L Anion Gap (5-15) BUN (7-18) mg/dL Creatinine (0.7-1.3) mg/dL Est Cr Clr Drug Dosing mL/min Estimated GFR (MDRD) (>60) mL/min BUN/Creatinine Ratio (14-18) Glucose (70-99) mg/dL Calcium (8.5-10.1) mg/dL Total Bilirubin (0.2-1.0) mg/dL AST (15-37) U/L ALT (16-63) U/L Alkaline Phosphatase (46-116) U/L Ammonia 45 H (11-32) umol/L Total Protein (6.4-8.2) g/dl Albumin (3.4-5.0) g/dl Globulin gm/dL Albumin/Globulin Ratio (1-2) 07/25/21 07/25/21 Range/Units 05:57 05:57 WBC (4.23-9.07) K/mm3 RBC (4.63-6.08) M/mm3 Hgb (13.7-17.5) gm/dl Hct (40.1-51.0) % MCV (79.0-92.2) fl MCH (25.7-32.2) pg MCHC (32.2-35.5) g/dl RDW Std Deviation (35.1-43.9) fL Plt Count (163-337) K/mm3 MPV (9.4-12.3) fl Neut % (Auto) (34.0-67.9) % Lymph % (Auto) (21.8-53.1) % [place] % (Auto) (5.3-12.2) % Eos % (Auto) (0.8-7.0) Baso % (Auto) (0.1-1.2) % Neut # (Auto) (1.78-5.38) K/mm3 Lymph # (Auto) (1.32-3.57) K/mm3 [place] # (Auto) (0.30-0.82) K/mm3 Eos # (Auto) (0.04-0.54) K/mm3 Baso # (Auto) (0.01-0.08) K/mm3 Manual Slide Review Sodium 141 (136-145) mEq/L Potassium 4.0 (3.5-5.1) mEq/L Chloride 108 H (98-107) mEq/L Carbon Dioxide 25 (21-32) mEq/L Anion Gap 12.0 (5-15) BUN 26 H (7-18) mg/dL Creatinine 1.0 (0.7-1.3) mg/dL Est Cr Clr Drug Dosing 66.10 mL/min Estimated GFR (MDRD) > 60 (>60) mL/min BUN/Creatinine Ratio 26.0 H (14-18) Glucose 199 H (70-99) mg/dL Calcium 8.1 L (8.5-10.1) mg/dL Total Bilirubin 2.7 H (0.2-1.0) mg/dL AST 22 (15-37) U/L ALT 63 (16-63) U/L Alkaline Phosphatase 81 (46-116) U/L Ammonia < 10 L (11-32) umol/L Total Protein 5.0 L (6.4-8.2) g/dl Albumin 2.4 L (3.4-5.0) g/dl Globulin 2.6 gm/dL Albumin/Globulin Ratio 0.9 L (1-2) Result Diagrams: 07/25/21 05:57 07/25/21 05:57 Ashwin Results Last 24 hrs: Microbiology 07/22/21 14:50 Blood Culture - Preliminary Blood - Venous - Lab Draw 07/22/21 15:00 Blood Culture - Preliminary Blood - Venous Sepsis Event Note - Evaluation Sepsis Screening Result: No Definite Risk - Focused Exam Vital Signs: Vital Signs Temp Pulse Resp BP Pulse Ox Pulse Ox 07/25/21 03:54 98.8 F 78 18 155/80 H 99 07/24/21 23:52 98.4 F 88 16 159/99 H 98 07/24/21 20:32 98.8 F 90 18 143/86 H 97 07/24/21 20:11 99 - Problem List & Annotations (1) Generalized weakness SNOMED Code(s): 17877562 Code(s): R53.1 - WEAKNESS Status: Acute Priority: High Current Visit: Yes (2) COVID-19 SNOMED Code(s): 978988166 Code(s): U07.1 - COVID-19 Status: Acute Priority: High Current Visit: Yes (3) Confusion SNOMED Code(s): 862999103 Code(s): R41.0 - DISORIENTATION, UNSPECIFIED Status: Acute Priority: High Current Visit: Yes (4) Lactic acidosis SNOMED Code(s): 76746310 Code(s): E87.2 - ACIDOSIS Status: Resolved Priority: High Current Visit: Yes (5) Hyperammonemia SNOMED Code(s): 1887166 Code(s): E72.20 - DISORDER OF UREA CYCLE METABOLISM, UNSPECIFIED Status: Acute Priority: Medium Current Visit: Yes (6) Anemia SNOMED Code(s): 441892080 Code(s): D64.9 - ANEMIA, UNSPECIFIED Status: Acute Priority: Medium Current Visit: Yes Qualifiers: Anemia type: other cause Other causes of anemia: antineoplastic chemotherapy Qualified Code(s): D64.81 - Anemia due to antineoplastic chemotherapy; T45.1X5A - Adverse effect of antineoplastic and immunosuppressive drugs, initial encounter (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 SNOMED Code(s): 424284289, 007651605 Code(s): C85.16 - UNSPECIFIED B-CELL LYMPHOMA, INTRAPELVIC LYMPH NODES Status: Chronic Priority: Medium Current Visit: Yes Qualifiers: B-cell lymphoma type: diffuse large B-cell Qualified Code(s): C83.36 - Diffuse large B-cell lymphoma, intrapelvic lymph nodes (8) Colon cancer SNOMED Code(s): 494426329 Code(s): C18.9 - MALIGNANT NEOPLASM OF COLON, UNSPECIFIED Status: Chronic Priority: High Current Visit: Yes Qualifiers: Colon location: unspecified part of colon Qualified Code(s): C18.9 - Malignant neoplasm of colon, unspecified (9) 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 SNOMED Code(s): 887173417, 638773645 Code(s): C18.9 - MALIGNANT NEOPLASM OF COLON, UNSPECIFIED; C79.31 - SECONDARY MALIGNANT NEOPLASM OF BRAIN Status: Chronic Priority: High Current Visit: Yes (10) Thrombocytopenia SNOMED Code(s): 116385545 Code(s): D69.6 - THROMBOCYTOPENIA, UNSPECIFIED Status: Chronic Priority: High Current Visit: Yes (11) Hyperbilirubinemia SNOMED Code(s): 38212868 Code(s): E80.6 - OTHER DISORDERS OF BILIRUBIN METABOLISM Status: Acute Current Visit: Yes (12) Lymphopenia Status: Resolved Priority: Medium Current Visit: Yes (13) Liver cirrhosis, alcoholic SNOMED Code(s): 266057032 Code(s): K70.30 - ALCOHOLIC CIRRHOSIS OF LIVER WITHOUT ASCITES Status: Chronic Priority: Medium Current Visit: Yes Qualifiers: Ascites presence: with ascites Qualified Code(s): K70.31 - Alcoholic cirrho sis of liver with ascites (14) GERD (gastroesophageal reflux disease) SNOMED Code(s): 422812248 Code(s): K21.9 - GASTRO-ESOPHAGEAL REFLUX DISEASE WITHOUT ESOPHAGITIS Status: Acute Current Visit: Yes (15) Recurrent pneumonia SNOMED Code(s): 364140009 Code(s): J18.9 - PNEUMONIA, UNSPECIFIED ORGANISM Status: Acute Current Visit: Yes (16) Prostate disorder SNOMED Code(s): 33662699 Code(s): N42.9 - DISORDER OF PROSTATE, UNSPECIFIED Status: Acute Current Visit: Yes (17) Immunosuppression due to chronic steroid use SNOMED Code(s): 194153475 Code(s): D84.821 - IMMUNODEFICIENCY DUE TO DRUGS; T38.0X5A - ADVERSE EFFECT OF GLUCOCORT/SYNTH ANALOG, INIT; Z79.52 - TELE MARKETING EXECUTIVE (CURRENT) USE OF SYSTEMIC STEROIDS Status: Acute Current Visit: Yes (18) History of prostate cancer SNOMED Code(s): 167284880 Code(s): Z85.46 - PERSONAL HISTORY OF MALIGNANT NEOPLASM OF PROSTATE Status: Acute Current Visit: Yes (19) History of colon resection SNOMED Code(s): 437778695 Code(s): Z90.49 - ACQUIRED ABSENCE OF OTHER SPECIFIED PARTS OF DIGESTIVE TRACT Status: Acute Current Visit: Yes (20) Dehydration SNOMED Code(s): 00342645 Code(s): E86.0 - DEHYDRATION Status: Resolved Priority: High Current Visit: Yes (21) Aspergillosis SNOMED Code(s): 48737400 Code(s): B44.9 - ASPERGILLOSIS, UNSPECIFIED Status: Chronic Priority: Medium Current Visit: Yes (22) Hepatic encephalopathy SNOMED Code(s): 35939248 Code(s): K72.90 - HEPATIC FAILURE, UNSPECIFIED WITHOUT COMA Status: Acute Priority: High Current Visit: Yes (23) Ascites SNOMED Code(s): 734593051 Code(s): R18.8 - OTHER ASCITES Status: Acute Priority: High Current Visit: Yes Qualifiers: Ascites type: due to alcoholic cirrhosis Qualified Code(s): K70.31 - Alcoh olic cirrhosis of liver with ascites - Problem List Review Problem List Initiated/Reviewed/Updated: Yes - My Orders Last 24 Hours: My Active Orders 07/24/21 09:15 amLODIPine [Norvasc] 5 mg PO DAILY 07/24/21 11:15 Spironolactone [Aldactone] 100 mg PO DAILY 07/24/21 12:15 Thiamine [Vitamin B-1] 100 mg PO DAILY 07/24/21 15:00 Lactulose [Cephulac] 30 gm PO TID 07/26/21 05:11 AMMONIA VENOUS [CHEM] AM CBC WITH AUTO DIFF [HEME] AM CMP [COMPREHENSIVE METABOLIC PN,CMP] [CHEM] AM 07/27/21 05:11 CBC WITH AUTO DIFF [HEME] AM CMP [COMPREHENSIVE METABOLIC PN,CMP] [CHEM] AM - Assessment Assessment:: 07/24/2021 This is a 66-year-old male with a history of prostate cancer, colon cancer, non- Hodgkin's lymphoma, metastasis to the brain, and chronic alcoholic cirrhosis who was admitted due to significant confusion, lactic acidosis, and severe generalized weakness. Today the patient is more alert and able to carry on a basic conversation although he does trail off and remains generally quite confused. Patient does state that his belly is quite full and that he has some mild tenderness. Because of this we will order a CT scan of the abdomen and pelvis. Suspect this is due to ascites from his liver failure and significant IV fluids given due to lactic acidosis. We will start him on spironolactone 100 mg currently and also start Lasix with dose pending results of CT scan. His white count today is 5.67. Hemoglobin is up to 9.2. Platelet has improved slightly to 42,000. Neutrophils are elevated at 83.6. Sodium is 141. Potassium 4.0. Chloride 109. Carbon dioxide 21. Anion gap is 15. BUN is 29. Creatinine 0.9. GFR greater than 60. Glucose is 207. Calcium is 8.0. Magnesium 2.0. Ammonia is 45. CRP is less than 0.2. Procalcitonin from yesterday 0.18. UA was negative. Patient continues on meropenem and vancomycin pending blood cultures. No fevers throughout his stay. Patient remains in airborne and contact isolation due to Covid but remains on room air with saturations in the upper 90s. Patient's ammonia did increase today as noted in nursing reports patient has yet to have a bowel movement despite starting on Lasix yesterday. Will increase Lasix dosing and monitor for bowel movements. Patient was working with PT and OT today and did ambulate a bit, which is also an improvement. Family is adamant about taking patient home. Patient's daughter contacted at the request of patient and his and update given. They have no concerns with patient staying with us at this time. We will continue current plan and update based on abdominal CT scan results. 07/25/2021 66-year-old male admitted to the floor due to acute weakness and confusion. Patient does have a history of prostate cancer, colon cancer, non-Hodgkin's lymphoma, metastasis to the brain, and chronic alcoholic cirrhosis. CT scan of the abdomen and pelvis was obtained yesterday showing significant ascites. Prior CT scan from a few months before was reviewed and shows a dramatic increase in ascites. Patient was started on 100 mg spironolactone and given IV push Lasix. We have increased Lasix to 40 mg IV push today and will adjust pending progress. We will continue to monitor I&O and daily weights. His ammonia today is less than 10. His mental status has significantly improved to the point where he is able to carry on a fairly basic conversation. He did remember me from yesterday. He does still tend to trail off and sometimes has difficulty finding words. Per family mental status was very stable prior to admission. Patient remains on Covid precautions but is on room air and showing no respiratory distress. Labs today show a WBC of 7.36. Hemoglobin is improved at 9.6. Platelets have improved to 48,000. Neutrophils are elevated at 82.8. Sodium is 141. Potassium 4.0. Chloride 108. Carbon dioxide 25. Anion gap is 12.0. BUN is 26. Creatinine 1.0. GFR greater than 60. Glucose is 199. Calcium 8.1. Bilirubin 2.7. AST is 22, ALT 63, alkaline phosphatase 81. Protein is 5.0. Albumin is 2 4. We will discontinue vancomycin but continue cefepime given patient's immunosuppression and concerns for infection on admission. We will look at decreasing or discontinuing this over the next few days. We will continue diuresis with hopeful discharge this weekend or early next week. We will decrease lactulose to 30 mg twice daily with goal of 2-3 soft BMs per day. - Plan Plan:: COVID-19 Lymphopenia, resolved Immunosuppression due to chronic steroid use * O2 as needed to keep saturations >90% * IS/Acapella * Given monoclonal antibodies * Continue home dexamethasone * Continuous pulse oximetry * Telemetry * PRN albuterol nebulizer * Blood cultures negative thus far * Daily labs * Airborne/contact precautions * Will hold off remdesivir at this point per Dr. Molina Generalized weakness * PT/OT * CM/SW Thrombocytopenia, improving * Acute on chronic * Pharmacologic VTE prophylaxis contraindicated * Monitor - consider transfusion if platelet cound <10K Lactic acidosis, Resolved Dehydration, resolved * Given IV fluids in ED * Continue cefepime empirically based on toxic granulation on smear and chronic immunosuppression * Discontinue vancomycin * Procalcitonin -0.18 * Sepsis screen: Unknown if bacterial infection at this point pending cultures/UA/Procalcitonin. WBC greater than 4 but less than 12. No tachycardia, no tachypnea. No fever. Does not meet criteria. 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 Marcelino Neurologist: Dr. Mike Radiation oncologist: Dr. Kennedy. Oncologists: Dr. Miller, Dr. Martines and locally Dr. Rowe DVT prophylaxis: SCDs/ROSANGELA vasquez (Pharmacological VTE prophylaxis contraindicated) Disposition: Admitted inpatient for treatment and further workup of Hyperammonemia, generalized weakness, and confusion. Pt. is also COVID-19 positive. Patients updated by phone on 07/23/2021. Confirmed full code status. Daughter updated by phone on 07/24/2021 at patient and request. updated by phone on 07/25/2021. LOS >96 hrs due to need for continued diuresis.
[2021-07-25] MEDS: Pantoprazole 40 MG Tab.CR PO SCH ×2 (08:43→20:42)
[2021-07-25] MEDS: Lactulose Soln 10 GM/15 ML 30 ML UD Cup PO SCH ×2 (08:43→20:42)
[2021-07-25] MEDS: Spironolactone 100 MG Tab PO SCH (08:43)
[2021-07-25] MEDS: POSACONAZOLE 100 MG PO SCH (08:44)
[2021-07-25] MEDS: Furosemide 40 MG/4 ML VIAL IVPUSH SCH (08:44)
[2021-07-25] MEDS: Dexamethasone 4 MG Tab PO SCH ×2 (08:44→20:42)
[2021-07-25] MEDS: Thiamine 100 MG Tab PO SCH (08:44)
[2021-07-25] MEDS: amLODIPine 5 MG Tab PO SCH (08:51)
[2021-07-25] MEDS: Morphine 2 MG/ML SYRINGE IVPUSH PRN (11:53)
[2021-07-25] MEDS ORDERED: amLODIPine 2.5 MG Tab PO ONE (17:42)
[2021-07-25] MEDS ORDERED: hydrALAZINE 20 MG/ML SDV IVPUSH PRN (17:43)
[2021-07-26] MEDS: Cefepime 2 GM in Sodium Chloride 0.9% 50 ML IV SCH ×3 (04:01→21:21)
[2021-07-26] MEDS: Spironolactone 100 MG Tab PO SCH (08:19)
[2021-07-26] MEDS: amLODIPine 5 MG Tab PO SCH (08:19)
[2021-07-26] MEDS: Lactulose Soln 10 GM/15 ML 30 ML UD Cup PO SCH ×2 (08:19→21:21)
[2021-07-26] MEDS: Dexamethasone 4 MG Tab PO SCH ×2 (08:20→21:20)
[2021-07-26] MEDS: Furosemide 40 MG/4 ML VIAL IVPUSH SCH (08:20)
[2021-07-26] MEDS: Pantoprazole 40 MG Tab.CR PO SCH ×2 (08:21→21:20)
[2021-07-26] MEDS: POSACONAZOLE 100 MG PO SCH (08:21)
[2021-07-26] MEDS: Thiamine 100 MG Tab PO SCH (08:21)
[2021-07-26] MEDS: Morphine 2 MG/ML SYRINGE IVPUSH PRN ×2 (08:21→13:40)
--- NOTE | 2021-07-26 11:03 | PCM.PN ---
- General Info Date of Service: 07/26/21 Admission Dx/Problem (Free Text): Admission Diagnosis/Problem Admission Diagnosis/Problem Confusion Subjective Update: This is a 66-year-old male who presents to our ED on 07/22/2021 via [facility] with confusion, generalized weakness, and anorexia. He has a history of prostate cancer, colon cancer, non-Hodgkin's lymphoma, metastasis to the brain, and chronic alcoholic cirrhosis. Patient still confused and delirium. He speaks to himself. Disorientated. Vital signs are stable and acceptable Hemoglobin 9.5, platelets 40, total bilirubin 2.9 Ammonia 27 - Review of Systems Systems Review Comment:: General: Reports: Weakness, Fatigue. delirum, speaks to himself. Denies: Fever, Malaise, Chills. As per RN, his mental status improving HEENT: Reports: No Symptoms. Denies: Headaches, Sore Throat Pulmonary: Reports: No Symptoms. Denies: Shortness of Breath, Cough, Sputum, Wheezing Cardiovascular: Reports: No Symptoms. Denies: Chest Pain, Palpitations, Dyspnea on Exertion, Edema Gastrointestinal: Reports: Abdominal Pain (Generalized - improved ). Denies: Constipation, Diarrhea, Nausea, Vomiting Genitourinary: Reports: No Symptoms. Denies: Pain Musculoskeletal: Reports: No Symptoms Skin: Reports: No Symptoms. Denies: Cyanosis Neurological: Reports: Confusion (Improved ), Pre-Existing Deficit (History of alcoholic cirrhosis with elevated ammonia levels. Active brain tumor.), Trouble Speaking (Aphasia), Difficulty Walking, Weakness, Gait Disturbance. Denies: Dizziness, Headache, Numbness, Seizure, Syncope, Tingling Psychiatric: Reports: No Symptoms - Patient Data Vitals - Most Recent: Last Vital Signs Temp 37.1 C 07/26/21 02:51 Pulse 78 07/26/21 02:51 Resp 18 07/26/21 02:51 BP 111/89 07/26/21 08:19 Pulse Ox 97 07/26/21 02:51 Weight - Most Recent: 81.012 kg I&O - Last 24 Hours: Intake & Output 07/25/21 07/26/21 07/26/21 22:59 06:59 14:59 Intake Total 910 300 Output Total 150 Balance 760 300 Lab Results Last 24 Hours: Laboratory Results - last 24 hr 07/26/21 07/26/2107/26/21 Range/Units 06:09 06:09 06:09 WBC 7.52 (4.23-9.07) K/mm3 RBC 3.06 L (4.63-6.08) M/mm3 Hgb 9.5 L (13.7-17.5) gm/dl Hct 29.4 L (40.1-51.0) % MCV 96.1 H (79.0-92.2) fl MCH 31.0 (25.7-32.2) pg MCHC 32.3 (32.2-35.5) g/dl RDW Std Deviation 66.5 H (35.1-43.9) fL Plt Count 40 L (163-337) K/mm3 MPV 10.2 (9.4-12.3) fl Neut % (Auto) 81.8 H (34.0-67.9) % Lymph % (Auto) 11.3 L (21.8-53.1) % [place] % (Auto) 6.1 (5.3-12.2) % Eos % (Auto) 0 L (0.8-7.0) Baso % (Auto) 0.1 (0.1-1.2) % Neut # (Auto) 6.15 H (1.78-5.38) K/mm3 Lymph # (Auto) 0.85 L (1.32-3.57) K/mm3 [place] # (Auto) 0.46 (0.30-0.82) K/mm3 Eos # (Auto) 0.00 L (0.04-0.54) K/mm3 Baso # (Auto) 0.01 (0.01-0.08) K/mm3 Manual Slide Review Abnormal smear Sodium 139 (136-145) mEq/L Potassium 4.4 (3.5-5.1) mEq/L Chloride 106 (98-107) mEq/L Carbon Dioxide 28 (21-32) mEq/L Anion Gap 9.4 (5-15) BUN 25 H (7-18) mg/dL Creatinine 0.8 (0.7-1.3) mg/dL Est Cr Clr Drug Dosing 82.63 mL/min Estimated GFR (MDRD) > 60 (>60) mL/min BUN/Creatinine Ratio 31.3 H (14-18) Glucose 223 H (70-99) mg/dL Calcium 7.9 L (8.5-10.1) mg/dL Total Bilirubin 2.9 H (0.2-1.0) mg/dL AST 23 (15-37) U/L ALT 64 H (16-63) U/L Alkaline Phosphatase 81 (46-116) U/L Ammonia 27 (11-32) umol/L Total Protein 4.9 L (6.4-8.2) g/dl Albumin 2.3 L (3.4-5.0) g/dl Globulin 2.6 gm/dL Albumin/Globulin Ratio 0.9 L (1-2) Med Orders - Current: Current Medications Acetaminophen (Acetaminophen 325 Mg Tab) 650 mg PO Q4H PRN PRN Reason: Pain (Mild 1-3)/fever Last Admin: 07/24/21 19:23 Dose: 650 mg Documented by: Acetaminophen (Acetaminophen 650 Mg Supp) 650 mg RECTAL Q4H PRN PRN Reason: Pain (mild 1-3) Albuterol (Albuterol 0.083% 2.5 Mg/3 Ml Neb Soln) 2.5 mg NEB Q2H PRN PRN Reason: Shortness Of Breath/wheezing Amlodipine Besylate (Amlodipine 5 Mg Tab) 7.5 mg PO DAILY [facility] Last Admin: 07/26/21 08:19 Dose: 7.5 mg Documented by: Dexamethasone (Dexamethasone 4 Mg Tab) 4 mg PO BID [facility] Last Admin: 07/26/21 08:20 Dose: 4 mg Documented by: Furosemide (Furosemide 40 Mg/4 Ml Vial) 40 mg IVPUSH DAILY [facility] Last Admin: 07/26/21 08:20 Dose: 40 mg Documented by: Hydralazine HCl (Hydralazine 20 Mg/Ml Sdv) 10 mg IVPUSH Q4H PRN PRN Reason: Hypertension Cefepime HCl 2 gm/ Sodium (Chloride) 50 mls @ 100 mls/hr IV Q8H [facility] Last Admin: 07/26/21 10:32 Dose: 100 mls/hr Documented by: Lactulose (Lactulose Soln 10 Gm/15 Ml 30 Ml Ud Cup) 30 gm PO BID [facility] Last Admin: 07/26/21 08:19 Dose: 30 gm Documented by: Morphine Sulfate (Morphine 2 Mg/Ml Syringe) 2 mg IVPUSH Q4H PRN PRN Reason: Pain (severe 7-10) Last Admin: 07/26/21 08:21 Dose: 2 mg Documented by: Ondansetron HCl (Ondansetron 4 Mg/2 Ml Sdv) 4 mg IV Q6H PRN PRN Reason: Nausea/Vomiting Pantoprazole Sodium (Pantoprazole 40 Mg Tab.Cr) 40 mg PO BID [facility] Last Admin: 07/26/21 08:21 Dose: 40 mg Documented by: Posaconazole [ Posaconazole] 100 Mg Tablet. Ptom 0 each PO DAILY [facility] Last Admin: 07/26/21 08:21 Dose: 3 each Documented by: Sodium Chloride (Sodium Chloride 0.9% 10 Ml Syringe) 10 ml FLUSH ASDIRECTED PRN PRN Reason: Keep Vein Open Last Admin: 07/22/21 15:00 Dose: 10 ml Documented by: Spironolactone (Spironolactone 100 Mg Tab) 100 mg PO DAILY [facility] Last Admin: 07/26/21 08:19 Dose: 100 mg Documented by: Thiamine HCl (Thiamine 100 Mg Tab) 100 mg PO DAILY [facility] Last Admin: 07/26/21 08:21 Dose: 100 mg Documented by: Discontinued Medications Amlodipine Besylate (Amlodipine 5 Mg Tab) 5 mg PO DAILY [facility] Last Admin: 07/25/21 08:51 Dose: 5 mg Documented by: Amlodipine Besylate (Amlodipine 2.5 Mg Tab) 2.5 mg PO ONETIME ONE Stop: 07/25/21 17:43 Last Admin: 07/25/21 18:28 Dose: 2.5 mg Documented by: Diphenhydramine HCl (Diphenhydramine 50 Mg/Ml Sdv) 50 mg IVPUSH ASDIRECTED PRN PRN Reason: hypersensitivity reaction Enoxaparin Sodium (Enoxaparin 40 Mg/0.4 Ml Syringe) 40 mg SUBCUT DAILY [facility] Last Admin: 07/23/21 12:25 Dose: Not Given Documented by: Epinephrine HCl (Epinephrine 1 Mg/Ml Sdv) 0.3 mg IM ASDIRECTED PRN PRN Reason: hypersensitivity reaction Famotidine (Famotidine 20 Mg/2 Ml Sdv) 20 mg IVPUSH ASDIRECTED PRN PRN Reason: hypersensitivity reaction Furosemide (Furosemide 20 Mg/2 Ml Vial) 20 mg IVPUSH ONETIME ONE Stop: 07/24/21 12:46 Last Admin: 07/24/21 13:51 Dose: 20 mg Documented by: Sodium Chloride (Normal Saline) 1,000 mls @ 1,000 mls/hr IV .BOLUS CHRISTA Last Admin: 07/22/21 16:18 Dose: 1,000 mls/hr Documented by: Sodium Chloride (Normal Saline) 1,000 mls @ 1,000 mls/hr IV ONETIME ONE Stop: 07/22/21 18:17 Last Admin: 07/22/21 17:24 Dose: 1,000 mls/hr Documented by: CASIRIVIMAB/IMDEVIMAB 10 ml/ (Sodium Chloride) 110 mls @ 220 mls/hr IV ONETIME ONE Stop: 07/22/21 20:12 Last Admin: 07/22/21 20:42 Dose: 220 mls/hr Documented by: Sodium Chloride (Normal Saline) 1,000 mls @ 125 mls/hr IV ASDIRECTED [facility] Last Admin: 07/23/21 06:25 Dose: 125 mls/hr Documented by: Vancomycin HCl 1.75 gm/ Sodium (Chloride) 500 mls @ 250 mls/hr IV ONETIME ONE Stop: 07/23/21 14:29 Last Admin: 07/23/21 12:46 Dose: 250 mls/hr Documented by: Vancomycin HCl 1 gm/Vancomycin HCl 250 mg/ Sodium Chloride 250 mls @ 166.667 mls/hr IV Q12H [facility] Last Admin: 07/24/21 23:41 Dose: 166.667 mls/hr Documented by: Lactulose (Lactulose Soln 10 Gm/15 Ml 30 Ml Ud Cup) 20 gm PO TID [facility] Last Admin: 07/24/21 08:51 Dose: 20 gm Documented by: Lactulose (Lactulose Soln 10 Gm/15 Ml 30 Ml Ud Cup) 30 gm PO TID [facility] Last Admin: 07/24/21 20:35 Dose: 30 gm Documented by: Methylprednisolone Sodium Succinate (Methylprednisolone Sodium Succinate 125 Mg/2 Ml Sdv) 125 mg IVPUSH ASDIRECTED PRN PRN Reason: hypersensitivity reaction Posaconazole [ Posaconazole] 100 Mg Tablet.Dr 0 each PO DAILY [facility] Last Admin: 07/23/21 12:26 Dose: Not Given Documented by: Sodium Chloride (Sodium Chloride 0.9% 10 Ml Syringe) 30 ml FLUSH ASDIRECTED [facility] Vancomycin HCl (Pharmacy To Dose - Vancomycin) 1 dose .XX ASDIRECTED PRN PRN Reason: RX TO DOSE VANCO - Exam Urinary Catheter Total Time: 0Days 7Hours Physical Findings Comments:: General: delirium, speaks to himself, Cooperative, No Acute Distress. As per RN, his mental status has improved. HEENT: Pupils Equal, Pupils Reactive, Mucous Membr. Moist/[place] Neck: Supple, Trachea Midline Lungs: Clear to Auscultation, Normal Respiratory Effort Cardiovascular: Regular Rate, Regular Rhythm GI/Abdominal Exam: Normal Bowel Sounds, Soft, Non-Tender, Distended (but improved ), Tender (mild generalized - but improved ), Hepatomegaly, Splenomegaly. No: Guarding, Rigid (Male) Exam: Deferred Back Exam: Normal Inspection, Full Range of Motion Extremities: Normal Inspection, Normal Range of Motion, Non-Tender, Normal Capillary Refill, Pedal Edema (trace - 1+) Skin: Warm, Dry, Intact Neurological: No New Focal Deficit Psy/Mental Status: Alert, Normal Affect, Normal Mood - Patient Data Lab Results Last 24 hrs: Laboratory Results - last 24 hr 07/26/21 07/26/21 07/26/21 Range/Units 06:09 06:09 06:09 WBC 7.52 (4.23-9.07) K/mm3 RBC 3.06 L (4.63-6.08) M/mm3 Hgb 9.5 L (13.7-17.5) gm/dl Hct 29.4 L (40.1-51.0) % MCV 96.1 H (79.0-92.2) fl MCH 31.0 (25.7-32.2) pg MCHC 32.3 (32.2-35.5) g/dl RDW Std Deviation 66.5 H (35.1-43.9) fL Plt Count 40 L (163-337) K/mm3 MPV 10.2 (9.4-12.3) fl Neut % (Auto) 81.8 H (34.0-67.9) % Lymph % (Auto) 11.3 L (21.8-53.1) % [place] % (Auto) 6.1 (5.3-12.2) % Eos % (Auto) 0 L (0.8-7.0) Baso % (Auto) 0.1 (0.1-1.2) % Neut # (Auto) 6.15 H (1.78-5.38) K/mm3 Lymph # (Auto) 0.85 L (1.32-3.57) K/mm3 [place] # (Auto) 0.46 (0.30-0.82) K/mm3 Eos # (Auto) 0.00 L (0.04-0.54) K/mm3 Baso # (Auto) 0.01 (0.01-0.08) K/mm3 Manual Slide Review Abnormal smear Sodium 139 (136-145) mEq/L Potassium 4.4 (3.5-5.1) mEq/L Chloride 106 (98-107) mEq/L Carbon Dioxide 28 (21-32) mEq/L Anion Gap 9.4 (5-15) BUN 25 H (7-18) mg/dL Creatinine 0.8 (0.7-1.3) mg/dL Est Cr Clr Drug Dosing 82.63 mL/min Estimated GFR (MDRD) > 60 (>60) mL/min BUN/Creatinine Ratio 31.3 H (14-18) Glucose 223 H (70-99) mg/dL Calcium 7.9 L (8.5-10.1) mg/dL Total Bilirubin 2.9 H (0.2-1.0) mg/dL AST 23 (15-37) U/L ALT 64 H (16-63) U/L Alkaline Phosphatase 81 (46-116) U/L Ammonia 27 (11-32) umol/L Total Protein 4.9 L (6.4-8.2) g/dl Albumin 2.3 L (3.4-5.0) g/dl Globulin 2.6 gm/dL Albumin/Globulin Ratio 0.9 L (1-2) Result Diagrams: 07/26/21 06:09 07/26/21 06:09 Sepsis Event Note - Evaluation Sepsis Screening Result: No Definite Risk - Focused Exam Vital Signs: Vital Signs Temp Pulse Resp BP Pulse Ox 07/26/21 08:19 111/89 07/26/21 02:51 37.1 C 78 18 131/86 97 07/25/21 23:45 37.1 C 84 16 150/88 H 97 - Problem List Review Problem List Initiated/Reviewed/Updated: Yes - My Orders Last 24 Hours: My Active Orders 07/25/21 17:43 hydrALAZINE [Apresoline] 10 mg IVPUSH Q4H PRN 07/26/21 09:00 amLODIPine [Norvasc] 7.5 mg PO DAILY - Assessment Assessment:: 07/24/2021 This is a 66-year-old male with a history of prostate cancer, colon cancer, non- Hodgkin's lymphoma, metastasis to the brain, and chronic alcoholic cirrhosis who was admitted due to significant confusion, lactic acidosis, and severe generalized weakness. Today the patient is more alert and able to carry on a basic conversation although he does trail off and remains generally quite confused. Patient does state that his belly is quite full and that he has some mild tenderness. Because of this we will order a CT scan of the abdomen and pelvis. Suspect this is due to ascites from his liver failure and significant IV fluids given due to lactic acidosis. We will start him on spironolactone 100 mg currently and also start Lasix with dose pending results of CT scan. His white count today is 5.67. Hemoglobin is up to 9.2. Platelet has improved slightly to 42,000. Neutrophils are elevated at 83.6. Sodium is 141. Potassium 4.0. Chloride 109. Carbon dioxide 21. Anion gap is 15. BUN is 29. Creatinine 0.9. GFR greater than 60. Glucose is 207. Calcium is 8.0. Magnesium 2.0. Ammonia is 45. CRP is less than 0.2. Procalcitonin from yesterday 0.18. UA was negative. Patient continues on meropenem and vancomycin pending blood cultures. No fevers throughout his stay. Patient remains in airborne and contact isolation due to Covid but remains on room air with saturations in the upper 90s. Patient's ammonia did increase today as noted in nursing reports patient has yet to have a bowel movement despite starting on Lasix yesterday. Will increase Lasix dosing and monitor for bowel movements. Patient was working with PT and OT today and did ambulate a bit, which is also an improvement. Family is adamant about taking patient home. Patient's daughter contacted at the request of patient and his and update given. They have no concerns with patient staying with us at this time. We will continue current plan and update based on abdominal CT scan results. 07/25/2021 66-year-old male admitted to the floor due to acute weakness and confusion. Patient does have a history of prostate cancer, colon cancer, non-Hodgkin's lymphoma, metastasis to the brain, and chronic alcoholic cirrhosis. CT scan of the abdomen and pelvis was obtained yesterday showing significant ascites. Prior CT scan from a few months before was reviewed and shows a dramatic increase in ascites. Patient was started on 100 mg spironolactone and given IV push Lasix. We have increased Lasix to 40 mg IV push today and will adjust pending progress. We will continue to monitor I&O and daily weights. His ammonia today is less than 10. His mental status has significantly improved to the point where he is able to carry on a fairly basic conversation. He did remember me from yesterday. He does still tend to trail off and sometimes has difficulty finding words. Per family mental status was very stable prior to admission. Patient remains on Covid precautions but is on room air and showing no respiratory distress. Labs today show a WBC of 7.36. Hemoglobin is improved at 9.6. Platelets have improved to 48,000. Neutrophils are elevated at 82.8. Sodium is 141. Potassium 4.0. Chloride 108. Carbon dioxide 25. Anion gap is 12.0. BUN is 26. Creatinine 1.0. GFR greater than 60. Glucose is 199. Calcium 8.1. Bilirubin 2.7. AST is 22, ALT 63, alkaline phosphatase 81. Protein is 5.0. Albumin is 2 4. We will discontinue vancomycin but continue cefepime given patient's immunosuppression and concerns for infection on admission. We will look at decreasing or discontinuing this over the next few days. We will continue diuresis with hopeful discharge this weekend or early next week. We will decrease lactulose to 30 mg twice daily with goal of 2-3 soft BMs per day. - Plan Plan:: COVID-19 Lymphopenia, resolved Immunosuppression due to chronic steroid use * O2 as needed to keep saturations >90% * IS/Acapella * Given monoclonal antibodies * Continue home dexamethasone * Continuous pulse oximetry * Telemetry * PRN albuterol nebulizer * Blood cultures negative thus far * Daily labs * Airborne/contact precautions * Will hold off remdesivir at this point per Dr. Molina Generalized weakness * PT/OT * CM/SW Thrombocytopenia, improving * Acute on chronic * Pharmacologic VTE prophylaxis contraindicated * Monitor - consider transfusion if platelet cound <10K Lactic acidosis, Resolved Dehydration, resolved * Given IV fluids in ED * Continue cefepime empirically based on toxic granulation on smear and chronic immunosuppression * Discontinue vancomycin * Procalcitonin -0.18 * Sepsis screen: Unknown if bacterial infection at this point pending cultures/UA/Procalcitonin. WBC greater than 4 but less than 12. No tachycardia, no tachypnea. No fever. Does not meet criteria. * Obtain UA - negative * Blood cultures negative thus far Aspergillosis * Reportedly recently reactivated * Continue home antifungal * No acute concerns Liver cirrhosis, alcoholic Hyperammonemia Confusion Hyperbilirubinemia Hepatic encephalopathy Ascites Abdominal pain * Lactulose 30mg BID - gaol of 2-3 soft stools per day * Monitor labs * CT abdomen/pelvis -prominent ascites with the evidence of a prior cirrhosis. Ascites a increased from a prior exam. * 100 mg daily spironolactone * 40 mg daily IV push Lasix * Monitor I&O and daily weights Anemia, improving * Acute on chronic * Likely exacerbated by IV fluids * Monitor labs B-cell lymphoma of intrapelvic lymph nodes Colon cancer 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 History of prostate cancer History of colon resection Prostate disorder * Discuss comfort care/hospice with /family in future - refusing, wants patient full code * Oncology follow-up GERD * No acute concerns * Continue home Protonix Code status: Full code PCP: Dr. Marcelino Neurologist: Dr. Mike Radiation oncologist: Dr. Kennedy. Oncologists: Dr. Miller, Dr. Martines and locally Dr. Rowe DVT prophylaxis: SCDs/ROSANGELA vasquez (Pharmacological VTE prophylaxis contraindicated) Disposition: Admitted inpatient for treatment and further workup of Hyperammonemia, generalized weakness, and confusion. Pt. is also COVID-19 positive. Patients updated by phone on 07/23/2021. Confirmed full code status. Daughter updated by phone on 07/24/2021 at patient and request. updated by phone on 07/25/2021. LOS >96 hrs due to need for continued diuresis.
[2021-07-26] MEDS ORDERED: HYDROmorphone 0.5 MG/0.5 ML Syringe IVPUSH PRN (14:37)
[2021-07-27] MEDS: Cefepime 2 GM in Sodium Chloride 0.9% 50 ML IV SCH ×3 (03:48→21:14)
[2021-07-27] MEDS: Morphine 2 MG/ML SYRINGE IVPUSH PRN ×4 (04:45→21:15)
[2021-07-27] MEDS: Pantoprazole 40 MG Tab.CR PO SCH ×2 (10:08→21:15)
[2021-07-27] MEDS: Spironolactone 100 MG Tab PO SCH (10:08)
[2021-07-27] MEDS: amLODIPine 5 MG Tab PO SCH (10:08)
[2021-07-27] MEDS: Thiamine 100 MG Tab PO SCH (10:08)
[2021-07-27] MEDS: Dexamethasone 4 MG Tab PO SCH ×2 (10:09→21:14)
[2021-07-27] MEDS: Lactulose Soln 10 GM/15 ML 30 ML UD Cup PO SCH ×2 (10:09→21:14)
[2021-07-27] MEDS: Furosemide 40 MG/4 ML VIAL IVPUSH SCH (10:10)
[2021-07-27] MEDS: POSACONAZOLE 100 MG PO SCH (10:11)
[2021-07-27] MEDS ORDERED: LORazepam 2 MG/ML SDV IVPUSH PRN (10:54)
--- NOTE | 2021-07-27 13:27 | PCM.PN ---
- General Info Date of Service: 07/27/21 Admission Dx/Problem (Free Text): Admission Diagnosis/Problem Admission Diagnosis/Problem Confusion Subjective Update: This is a 66-year-old male who presents to our ED on 07/22/2021 via [place] [facility] with confusion, generalized weakness, and anorexia. He has a history of prostate cancer, colon cancer, non-Hodgkin's lymphoma, metastasis to the brain, and chronic alcoholic cirrhosis. Patient still confused and delirium. He speaks to himself. Disorientated. Vital signs are stable and acceptable Hemoglobin 9.7, platelets 43, total bilirubin 2.5 I met and daughter yesterday afternoon. I explained his condition and the treatment options to both and the daughter. They would like to pursue hospice care but and the daughter would like to discuss with the whole family and then they will make a final decision. - Review of Systems Systems Review Comment:: General: Reports: Weakness, Fatigue. delirum, speaks to himself. Denies: Fever, Malaise, Chills. As per RN, his mental status improving HEENT: Reports: No Symptoms. Denies: Headaches, Sore Throat Pulmonary: Reports: No Symptoms. Denies: Shortness of Breath, Cough, Sputum, Wheezing Cardiovascular: Reports: No Symptoms. Denies: Chest Pain, Palpitations, Dyspnea on Exertion, Edema Gastrointestinal: Reports: Abdominal Pain (Generalized - improved ). Denies: Constipation, Diarrhea, Nausea, Vomiting Genitourinary: Reports: No Symptoms. Denies: Pain Musculoskeletal: Reports: No Symptoms Skin: Reports: No Symptoms. Denies: Cyanosis Neurological: Reports: Confusion (Improved ), Pre-Existing Deficit (History of alcoholic cirrhosis with elevated ammonia levels. Active brain tumor.), Trouble Speaking (Aphasia), Difficulty Walking, Weakness, Gait Disturbance. Denies: Dizziness, Headache, Numbness, Seizure, Syncope, Tingling Psychiatric: Reports: No Symptoms (Answers may not be a reliable because of confusion and delirium) - Patient Data Vitals - Most Recent: Last Vital Signs Temp 36.2 C 07/27/21 11:00 Pulse 78 07/27/21 11:00 Resp 14 07/27/21 11:00 BP 120/80 07/27/21 11:00 Pulse Ox 91 L 07/27/21 11:00 Weight - Most Recent: 85.139 kg I&O - Last 24 Hours: Intake & Output 07/26/21 07/27/21 07/27/21 22:59 06:59 14:59 Intake Total 700 100 Balance 700 100 Lab Results Last 24 Hours: Laboratory Results - last 24 hr 07/27/21 07/27/21 Range/Units 07:35 07:35 WBC 7.18 (4.23-9.07) K/mm3 RBC 3.14 L (4.63-6.08) M/mm3 Hgb 9.7 L (13.7-17.5) gm/dl Hct 29.7 L (40.1-51.0) % MCV 94.6 H (79.0-92.2) fl MCH 30.9 (25.7-32.2) pg MCHC 32.7 (32.2-35.5) g/dl RDW Std Deviation 63.4 H (35.1-43.9) fL Plt Count 43 L (163-337) K/mm3 MPV 11.0 (9.4-12.3) fl Neut % (Auto) 82.0 H (34.0-67.9) % Lymph % (Auto) 11.6 L (21.8-53.1) % [place] % (Auto) 5.7 (5.3-12.2) % Eos % (Auto) 0.1 L (0.8-7.0) Baso % (Auto) 0.0 L (0.1-1.2) % Neut # (Auto) 5.89 H (1.78-5.38) K/mm3 Lymph # (Auto) 0.83 L (1.32-3.57) K/mm3 [place] # (Auto) 0.41 (0.30-0.82) K/mm3 Eos # (Auto) 0.01 L (0.04-0.54) K/mm3 Baso # (Auto) 0.00 L (0.01-0.08) K/mm3 Manual Slide Review Abnormal smear Sodium 136 (136-145) mEq/L Potassium 4.4 (3.5-5.1) mEq/L Chloride 102 (98-107) mEq/L Carbon Dioxide 29 (21-32) mEq/L Anion Gap 9.4 (5-15) BUN 23 H (7-18) mg/dL Creatinine 0.7 (0.7-1.3) mg/dL Est Cr Clr Drug Dosing 94.43 mL/min Estimated GFR (MDRD) > 60 (>60) mL/min BUN/Creatinine Ratio 32.9 H (14-18) Glucose 236 H (70-99) mg/dL Calcium 8.6 (8.5-10.1) mg/dL Total Bilirubin 2.5 H (0.2-1.0) mg/dL AST 20 (15-37) U/L ALT 63 (16-63) U/L Alkaline Phosphatase 87 (46-116) U/L Total Protein 5.1 L (6.4-8.2) g/dl Albumin 2.4 L (3.4-5.0) g/dl Globulin 2.7 gm/dL Albumin/Globulin Ratio 0.9 L (1-2) Med Orders - Current: Current Medications Acetaminophen (Acetaminophen 325 Mg Tab) 650 mg PO Q4H PRN PRN Reason: Pain (Mild 1-3)/fever Last Admin: 07/24/21 19:23 Dose: 650 mg Documented by: Acetaminophen (Acetaminophen 650 Mg Supp) 650 mg RECTAL Q4H PRN PRN Reason: Pain (mild 1-3) Albuterol (Albuterol 0.083% 2.5 Mg/3 Ml Neb Soln) 2.5 mg NEB Q2H PRN PRN Reason: Shortness Of Breath/wheezing Amlodipine Besylate (Amlodipine 5 Mg Tab) 7.5 mg PO DAILY [facility] Last Admin: 07/27/21 10:08 Dose: 7.5 mg Documented by: Dexamethasone (Dexamethasone 4 Mg Tab) 4 mg PO BID [facility] Last Admin: 07/27/21 10:09 Dose: 4 mg Documented by: Furosemide (Furosemide 40 Mg/4 Ml Vial) 40 mg IVPUSH DAILY [facility] Last Admin: 07/27/21 10:10 Dose: 40 mg Documented by: Hydralazine HCl (Hydralazine 20 Mg/Ml Sdv) 10 mg IVPUSH Q4H PRN PRN Reason: Hypertension Hydromorphone HCl (Hydromorphone 0.5 Mg/0.5 Ml Syringe) 0.5 mg IVPUSH Q4H PRN PRN Reason: Pain (severe 7-10) Cefepime HCl 2 gm/ Sodium (Chloride) 50 mls @ 100 mls/hr IV Q8H [facility] Last Admin: 07/27/21 13:12 Dose: 100 mls/hr Documented by: Lactulose (Lactulose Soln 10 Gm/15 Ml 30 Ml Ud Cup) 30 gm PO BID [facility] Last Admin: 07/27/21 10:09 Dose: 30 gm Documented by: Lorazepam (Lorazepam 2 Mg/Ml Sdv) 0.5 mg IVPUSH Q4H PRN PRN Reason: Agitation Morphine Sulfate (Morphine 2 Mg/Ml Syringe) 2 mg IVPUSH Q4H PRN PRN Reason: Pain (severe 7-10) Last Admin: 07/27/21 10:46 Dose: 2 mg Documented by: Ondansetron HCl (Ondansetron 4 Mg/2 Ml Sdv) 4 mg IV Q6H PRN PRN Reason: Nausea/Vomiting Pantoprazole Sodium (Pantoprazole 40 Mg Tab.Cr) 40 mg PO BID [facility] Last Admin: 07/27/21 10:08 Dose: 40 mg Documented by: Posaconazole [ Posaconazole] 100 Mg Tablet.Dr Ptom 0 each PO DAILY [facility] Last Admin: 07/27/21 10:11 Dose: 3 each Documented by: Sodium Chloride (Sodium Chloride 0.9% 10 Ml Syringe) 10 ml FLUSH ASDIRECTED PRN PRN Reason: Keep Vein Open Last Admin: 07/22/21 15:00 Dose: 10 ml Documented by: Spironolactone (Spironolactone 100 Mg Tab) 100 mg PO DAILY [facility] Last Admin: 07/27/21 10:08 Dose: 100 mg Documented by: Thiamine HCl (Thiamine 100 Mg Tab) 100 mg PO DAILY [facility] Last Admin: 07/27/21 10:08 Dose: 100 mg Documented by: Discontinued Medications Amlodipine Besylate (Amlodipine 5 Mg Tab) 5 mg PO DAILY [facility] Last Admin: 07/25/21 08:51 Dose: 5 mg Documented by: Amlodipine Besylate (Amlodipine 2.5 Mg Tab) 2.5 mg PO ONETIME ONE Stop: 07/25/21 17:43 Last Admin: 07/25/21 18:28 Dose: 2.5 mg Documented by: Diphenhydramine HCl (Diphenhydramine 50 Mg/Ml Sdv) 50 mg IVPUSH ASDIRECTED PRN PRN Reason: hypersensitivity reaction Enoxaparin Sodium (Enoxaparin 40 Mg/0.4 Ml Syringe) 40 mg SUBCUT DAILY [facility] Last Admin: 07/23/21 12:25 Dose: Not Given Documented by: Epinephrine HCl (Epinephrine 1 Mg/Ml Sdv) 0.3 mg IM ASDIRECTED PRN PRN Reason: hypersensitivity reaction Famotidine (Famotidine 20 Mg/2 Ml Sdv) 20 mg IVPUSH ASDIRECTED PRN PRN Reason: hypersensitivity reaction Furosemide (Furosemide 20 Mg/2 Ml Vial) 20 mg IVPUSH ONETIME ONE Stop: 07/24/21 12:46 Last Admin: 07/24/21 13:51 Dose: 20 mg Documented by: Sodium Chloride (Normal Saline) 1,000 mls @ 1,000 mls/hr IV .BOLUS [facility] Last Admin: 07/22/21 16:18 Dose: 1,000 mls/hr Documented by: Sodium Chloride (Normal Saline) 1,000 mls @ 1,000 mls/hr IV ONETIME ONE Stop: 07/22/21 18:17 Last Admin: 07/22/21 17:24 Dose: 1,000 mls/hr Documented by: CASIRIVIMAB/IMDEVIMAB 10 ml/ (Sodium Chloride) 110 mls @ 220 mls/hr IV ONETIME ONE Stop: 07/22/21 20:12 Last Admin: 07/22/21 20:42 Dose: 220 mls/hr Documented by: Sodium Chloride (Normal Saline) 1,000 mls @ 125 mls/hr IV ASDIRECTED [facility] Last Admin: 07/23/21 06:25 Dose: 125 mls/hr Documented by: Vancomycin HCl 1.75 gm/ Sodium (Chloride) 500 mls @ 250 mls/hr IV ONETIME ONE Stop: 07/23/21 14:29 Last Admin: 07/23/21 12:46 Dose: 250 mls/hr Documented by: Vancomycin HCl 1 gm/Vancomycin HCl 250 mg/ Sodium Chloride 250 mls @ 166.667 mls/hr IV Q12H [facility] Last Admin: 07/24/21 23:41 Dose: 166.667 mls/hr Documented by: Lactulose (Lactulose Soln 10 Gm/15 Ml 30 Ml Ud Cup) 20 gm PO TID [facility] Last Admin: 07/24/21 08:51 Dose: 20 gm Documented by: Lactulose (Lactulose Soln 10 Gm/15 Ml 30 Ml Ud Cup) 30 gm PO TID [facility] Last Admin: 07/24/21 20:35 Dose: 30 gm Documented by: Methylprednisolone Sodium Succinate (Methylprednisolone Sodium Succinate 125 Mg/2 Ml Sdv) 125 mg IVPUSH ASDIRECTED PRN PRN Reason: hypersensitivity reaction Posaconazole [ Posaconazole] 100 Mg Tablet.Dr 0 each PO DAILY [facility] Last Admin: 07/23/21 12:26 Dose: Not Given Documented by: Sodium Chloride (Sodium Chloride 0.9% 10 Ml Syringe) 30 ml FLUSH ASDIRECTED [facility] Vancomycin HCl (Pharmacy To Dose - Vancomycin) 1 dose .XX ASDIRECTED PRN PRN Reason: RX TO DOSE VANCO - Exam Urinary Catheter Total Time: 0Days 7Hours Physical Findings Comments:: General: delirium, speaks to himself, Cooperative, No Acute Distress. As per RN, his mental status has improved. HEENT: Pupils Equal, Pupils Reactive, Mucous Membr. Moist/[place] Neck: Supple, Trachea Midline Lungs: Clear to Auscultation, Normal Respiratory Effort Cardiovascular: Regular Rate, Regular Rhythm GI/Abdominal Exam: Normal Bowel Sounds, Soft, Non-Tender, Distended (but improved ), Tender (mild generalized - but improved ), Hepatomegaly, Splenomegaly. No: Guarding, Rigid (Male) Exam: Deferred Back Exam: Normal Inspection, Full Range of Motion Extremities: Normal Inspection, Normal Range of Motion, Non-Tender, Normal Capillary Refill, Pedal Edema (trace - 1+) Skin: Warm, Dry, Intact Neurological: No New Focal Deficit Psy/Mental Status: Alert, Normal Affect, Normal Mood - Patient Data Lab Results Last 24 hrs: Laboratory Results - last 24 hr 07/27/21 07/27/21 Range/Units 07:35 07:35 WBC 7.18 (4.23-9.07) K/mm3 RBC 3.14 L (4.63-6.08) M/mm3 Hgb 9.7 L (13.7-17.5) gm/dl Hct 29.7 L (40.1-51.0) % MCV 94.6 H (79.0-92.2) fl MCH 30.9 (25.7-32.2) pg MCHC 32.7 (32.2-35.5) g/dl RDW Std Deviation 63.4 H (35.1-43.9) fL Plt Count 43 L (163-337) K/mm3 MPV 11.0 (9.4-12.3) fl Neut % (Auto) 82.0 H (34.0-67.9) % Lymph % (Auto) 11.6 L (21.8-53.1) % [place] % (Auto) 5.7 (5.3-12.2) % Eos % (Auto) 0.1 L (0.8-7.0) Baso % (Auto) 0.0 L (0.1-1.2) % Neut # (Auto) 5.89 H (1.78-5.38) K/mm3 Lymph # (Auto) 0.83 L (1.32-3.57) K/mm3 [place] # (Auto) 0.41 (0.30-0.82) K/mm3 Eos # (Auto) 0.01 L (0.04-0.54) K/mm3 Baso # (Auto) 0.00 L (0.01-0.08) K/mm3 Manual Slide Review Abnormal smear Sodium 136 (136-145) mEq/L Potassium 4.4 (3.5-5.1) mEq/L Chloride 102 (98-107) mEq/L Carbon Dioxide 29 (21-32) mEq/L Anion Gap 9.4 (5-15) BUN 23 H (7-18) mg/dL Creatinine 0.7 (0.7-1.3) mg/dL Est Cr Clr Drug Dosing 94.43 mL/min Estimated GFR (MDRD) > 60 (>60) mL/min BUN/Creatinine Ratio 32.9 H (14-18) Glucose 236 H (70-99) mg/dL Calcium 8.6 (8.5-10.1) mg/dL Total Bilirubin 2.5 H (0.2-1.0) mg/dL AST 20 (15-37) U/L ALT 63 (16-63) U/L Alkaline Phosphatase 87 (46-116) U/L Total Protein 5.1 L (6.4-8.2) g/dl Albumin 2.4 L (3.4-5.0) g/dl Globulin 2.7 gm/dL Albumin/Globulin Ratio 0.9 L (1-2) Result Diagrams: 07/27/21 07:35 07/27/21 07:35 Sepsis Event Note - Evaluation Sepsis Screening Result: No Definite Risk - Focused Exam Vital Signs: Vital Signs Temp Pulse Resp BP Pulse Ox 07/27/21 11:00 36.2 C 78 14 120/80 91 L 07/27/21 10:08 144/84 H 07/27/21 08:07 37.1 C 82 16 144/84 H 98 07/27/21 03:21 37.2 C 80 18 138/76 98 - Problem List Review Problem List Initiated/Reviewed/Updated: Yes - My Orders Last 24 Hours: My Active Orders 07/26/21 14:37 HYDROmorphone [Dilaudid] 0.5 mg IVPUSH Q4H PRN 07/27/21 10:54 LORazepam [Ativan] 0.5 mg IVPUSH Q4H PRN 07/28/21 05:00 CBC WITH AUTO DIFF [HEME] DAILY COMPREHENSIVE METABOLIC PN,CMP [CHEM] DAILY 07/29/21 05:00 CBC WITH AUTO DIFF [HEME] DAILY COMPREHENSIVE METABOLIC PN,CMP [CHEM] DAILY 07/30/21 05:00 CBC WITH AUTO DIFF [HEME] DAILY COMPREHENSIVE METABOLIC PN,CMP [CHEM] DAILY 07/31/21 05:00 CBC WITH AUTO DIFF [HEME] DAILY COMPREHENSIVE METABOLIC PN,CMP [CHEM] DAILY - Assessment Assessment:: 07/24/2021 This is a 66-year-old male with a history of prostate cancer, colon cancer, non-Hodgkin's lymphoma, metastasis to the brain, and chronic alcoholic cirrhosis who was admitted due to significant confusion, lactic acidosis, and severe generalized weakness. Today the patient is more alert and able to carry on a basic conversation although he does trail off and remains generally quite c onfused. Patient does state that his belly is quite full and that he has some mild tenderness. Because of this we will order a CT scan of the abdomen and pelvis. Suspect this is due to ascites from his liver failure and significant IV fluids given due to lactic acidosis. We will start him on spironolactone 100 mg currently and also start Lasix with dose pending results of CT scan. His white count today is 5.67. Hemoglobin is up to 9.2. Platelet has improved slightly to 42,000. Neutrophils are elevated at 83.6. Sodium is 141. Potassium 4.0. Chloride 109. Carbon dioxide 21. Anion gap is 15. BUN is 29. Creatinine 0.9. GFR greater than 60. Glucose is 207. Calcium is 8.0. Magne sium 2.0. Ammonia is 45. CRP is less than 0.2. Procalcitonin from yesterday 0.18. UA was negative. Patient continues on meropenem and vancomycin pending blood cultures. No fevers throughout his stay. Patient remains in airborne and contact isolation due to Covid but remains on room air with saturations in the upper 90s. Patient's ammonia did increase today as noted in nursing reports patient has yet to have a bowel movement despite starting on Lasix yesterday. Will increase Lasix dosing and monitor for bowel movements. Patient was working with PT and OT today and did ambulate a bit, which is also an improvement. Family is adamant about taking patient home. Patient's daughter contacted at the request of patient and his and update given. They have no concerns with patient staying with us at this time. We will continue current plan and update based on abdominal CT scan results. 07/25/2021 66-year-old male admitted to the floor due to acute weakness and confusion. Patient does have a history of prostate cancer, colon cancer, non-Hodgkin's ly mphoma, metastasis to the brain, and chronic alcoholic cirrhosis. CT scan of the abdomen and pelvis was obtained yesterday showing significant ascites. Prior CT scan from a few months before was reviewed and shows a dramatic increase in ascites. Patient was started on 100 mg spironolactone and given IV push Lasix. We have increased Lasix to 40 mg IV push today and will adjust pending progress. We will continue to monitor I&O and daily weights. His ammonia today is less than 10. His mental status has significantly improved to the point where he is able to carry on a fairly basic conversation. He did remember me from yesterday. He does still tend to trail off and sometimes has difficulty finding words. Per family mental status was very stable prior to admission. Patient remains on Covid precautions but is on room air and showing no respiratory distress. Labs today show a WBC of 7.36. Hemoglobin is improved at 9.6. Platelets have improved to 48,000. Neutrophils are elevated at 82.8. Sodium is 141. Potassium 4.0. Chloride 108. Carbon dioxide 25. Anion gap is 12.0. BUN is 26. Creatinine 1.0. GFR greater than 60. Glucose is 199. Calcium 8.1. Bilirubin 2.7. AST is 22, ALT 63, alkaline phosphatase 81. Protein is 5.0. Albumin is 2 4. We will discontinue vancomycin but continue cefepime given patient's immunosuppression and concerns for infection on admission. We will look at decreasing or discontinuing this over the next few days. We will continue diuresis with hopeful discharge this weekend or early next week. We will decrease lactulose to 30 mg twice daily with goal of 2-3 soft BMs per day. - Plan Plan:: COVID-19 Lymphopenia, resolved Immunosuppression due to chronic steroid use * O2 as needed to keep saturations >90% * IS/Acapella * Given monoclonal antibodies * Continue home dexamethasone * Continuous pulse oximetry * Telemetry (patient agitated at times. Cannot wear the monitor well) * PRN albuterol nebulizer * Blood cultures negative thus far * Daily labs * Airborne/contact precautions * Will hold off remdesivir at this point per Dr. Molina Generalized weakness * PT/OT * CM/SW Thrombocytopenia, improving * Acute on chronic * Pharmacologic VTE prophylaxis contraindicated * Monitor - consider transfusion if platelet cound <10K Lactic acidosis, Resolved Dehydration, resolved * Given IV fluids in ED * Continue cefepime empirically based on toxic granulation on smear and chronic immunosuppression * Discontinue vancomycin * Procalcitonin -0.18 * Sepsis screen: Unknown if bacterial infection at this point pending cultu res/UA/Procalcitonin. WBC greater than 4 but less than 12. No tachycardia, no tachypnea. No fever. Does not meet criteria. * Obtain UA - negative * Blood cultures negative thus far Aspergillosis * Reportedly recently reactivated * Continue home antifungal * No acute concerns Liver cirrhosis, alcoholic Hyperammonemia Confusion Hyperbilirubinemia Hepatic encephalopathy Ascites Abdominal pain * Lactulose 30mg BID - gaol of 2-3 soft stools per day * Monitor labs * CT abdomen/pelvis -prominent ascites with the evidence of a prior cirrhosis. Ascites a increased from a prior exam. * 100 mg daily spironolactone * 40 mg daily IV push Lasix * Monitor I&O and daily weights Anemia, improving * Acute on chronic * Likely exacerbated by IV fluids * Monitor labs B-cell lymphoma of intrapelvic lymph nodes Colon cancer 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 History of prostate cancer History of colon resection Prostate disorder * Discuss comfort care/hospice with /family in future - refusing, wants patient full code * Oncology follow-up GERD * No acute concerns * Continue home Protonix Code status: Full code PCP: Dr. Marcelino Neurologist: Dr. Mike Radiation oncologist: Dr. Kennedy. Oncologists: Dr. Miller, Dr. Martines and locally Dr. Rowe DVT prophylaxis: SCDs/ROSANGELA vasquez (Pharmacological VTE prophylaxis contraindicated) Disposition: Admitted inpatient for treatment and further workup of Hyperamm onemia, generalized weakness, and confusion. Pt. is also COVID-19 positive. Met and daughter yesterday afternoon. The and daughter would like to pursue hospice care. They will make a final decision after discussion with the whole family. Met PCP Dr. Marcelino on medical floor early this afternoon who felt it is appropriate for hospice care. LOS >96 hrs due to need for continued diuresis.
[2021-07-27] MEDS: Sodium Chloride 0.9% 10 ML Syringe FLUSH PRN (21:17)
[2021-07-28] MEDS: Cefepime 2 GM in Sodium Chloride 0.9% 50 ML IV SCH ×3 (04:15→18:35)
[2021-07-28] MEDS: Morphine 2 MG/ML SYRINGE IVPUSH PRN ×3 (06:03→21:55)
[2021-07-28] MEDS: Spironolactone 100 MG Tab PO SCH (08:42)
[2021-07-28] MEDS: amLODIPine 5 MG Tab PO SCH (08:42)
[2021-07-28] MEDS: Pantoprazole 40 MG Tab.CR PO SCH ×2 (08:43→21:55)
[2021-07-28] MEDS: Lactulose Soln 10 GM/15 ML 30 ML UD Cup PO SCH ×2 (08:43→21:54)
[2021-07-28] MEDS: Thiamine 100 MG Tab PO SCH (08:43)
[2021-07-28] MEDS: Dexamethasone 4 MG Tab PO SCH ×2 (08:43→21:55)
[2021-07-28] MEDS: Furosemide 40 MG/4 ML VIAL IVPUSH SCH (08:44)
[2021-07-28] MEDS: POSACONAZOLE 100 MG PO SCH (08:44)
--- NOTE | 2021-07-28 11:04 | PCM.PN ---
- General Info Date of Service: 07/28/21 Admission Dx/Problem (Free Text): Admission Diagnosis/Problem Admission Diagnosis/Problem Confusion Subjective Update: This is a 66-year-old male who presents to our ED on 07/22/2021 via [place] [facility] with confusion, generalized weakness, and anorexia. He has a history of prostate cancer, colon cancer, non-Hodgkin's lymphoma, metastasis to the brain, and chronic alcoholic cirrhosis. Patient still confused and delirium. He speaks to himself. Disorientated. But he can answer simple questions. Vital signs are stable and acceptable Hemoglobin 11.1, platelets 52, total bilirubin 3.4 RN and met and daughter yesterday afternoon who would like to pursue hospice care. will consult with SW and cyanide case hardener tomorrow to set up the care. RN and I spoke to family who agreed with DNR/DNI - Review of Systems Systems Review Comment:: Positive for agitation and delirium. All other systems were reviewed and are negative. (Answer some may not be reliable due to his mental status) - Patient Data Vitals - Most Recent: Last Vital Signs Temp 36.6 C 07/28/21 07:26 Pulse 68 07/28/21 07:26 Resp 16 07/28/21 07:26 BP 126/76 07/28/21 08:42 Pulse Ox 100 07/28/21 07:26 Weight - Most Recent: 84.776 kg I&O - Last 24 Hours: Intake & Output 07/27/21 07/28/21 07/28/21 22:59 06:59 14:59 Intake Total 530 500 Output Total 200 Balance 330 500 Lab Results Last 24 Hours: Laboratory Results - last 24 hr 07/28/21 07/28/21 Range/Units 07:16 07:16 WBC 7.40 (4.23-9.07) K/mm3 RBC 3.59 L (4.63-6.08) M/mm3 Hgb 11.1 L (13.7-17.5) gm/dl Hct 33.8 L (40.1-51.0) % MCV 94.2 H (79.0-92.2) fl MCH 30.9 (25.7-32.2) pg MCHC 32.8 (32.2-35.5) g/dl RDW Std Deviation 63.8 H (35.1-43.9) fL Plt Count 52 L (163-337) K/mm3 MPV 12.1 (9.4-12.3) fl Neut % (Auto) 82.7 H (34.0-67.9) % Lymph % (Auto) 8.4 L (21.8-53.1) % Frederick % (Auto) 8.4 (5.3-12.2) % Eos % (Auto) 0 L (0.8-7.0) Baso % (Auto) 0.1 (0.1-1.2) % Neut # (Auto) 6.12 H (1.78-5.38) K/mm3 Lymph # (Auto) 0.62 L (1.32-3.57) K/mm3 Frederick # (Auto) 0.62 (0.30-0.82) K/mm3 Eos # (Auto) 0.00 L (0.04-0.54) K/mm3 Baso # (Auto) 0.01 (0.01-0.08) K/mm3 Manual Slide Review Abnormal smear Sodium 139 (136-145) mEq/L Potassium 4.6 (3.5-5.1) mEq/L Chloride 103 (98-107) mEq/L Carbon Dioxide 30 (21-32) mEq/L Anion Gap 10.6 (5-15) BUN 26 H (7-18) mg/dL Creatinine 0.8 (0.7-1.3) mg/dL Est Cr Clr Drug Dosing 82.63 mL/min Estimated GFR (MDRD) > 60 (>60) mL/min BUN/Creatinine Ratio 32.5 H (14-18) Glucose 194 H (70-99) mg/dL Calcium 8.6 (8.5-10.1) mg/dL Total Bilirubin 3.4 H (0.2-1.0) mg/dL AST 23 (15-37) U/L ALT 65 H (16-63) U/L Alkaline Phosphatase 95 (46-116) U/L Total Protein 5.4 L (6.4-8.2) g/dl Albumin 2.6 L (3.4-5.0) g/dl Globulin 2.8 gm/dL Albumin/Globulin Ratio 0.9 L (1-2) Med Orders - Current: Current Medications Acetaminophen (Acetaminophen 325 Mg Tab) 650 mg PO Q4H PRN PRN Reason: Pain (Mild 1-3)/fever Last Admin: 07/24/21 19:23 Dose: 650 mg Documented by: Acetaminophen (Acetaminophen 650 Mg Supp) 650 mg RECTAL Q4H PRN PRN Reason: Pain (mild 1-3) Albuterol (Albuterol 0.083% 2.5 Mg/3 Ml Neb Soln) 2.5 mg NEB Q2H PRN PRN Reason: Shortness Of Breath/wheezing Amlodipine Besylate (Amlodipine 5 Mg Tab) 7.5 mg PO DAILY [facility] Last Admin: 07/28/21 08:42 Dose: 7.5 mg Documented by: Dexamethasone (Dexamethasone 4 Mg Tab) 4 mg PO BID [facility] Last Admin: 07/28/21 08:43 Dose: 4 mg Documented by: Furosemide (Furosemide 40 Mg/4 Ml Vial) 40 mg IVPUSH DAILY [facility] Last Admin: 07/28/21 08:44 Dose: 40 mg Documented by: Hydralazine HCl (Hydralazine 20 Mg/Ml Sdv) 10 mg IVPUSH Q4H PRN PRN Reason: Hypertension Hydromorphone HCl (Hydromorphone 0.5 Mg/0.5 Ml Syringe) 0.5 mg IVPUSH Q4H PRN PRN Reason: Pain (severe 7-10) Cefepime HCl 2 gm/ Sodium (Chloride) 50 mls @ 100 mls/hr IV Q8H [facility] Last Admin: 07/28/21 10:31 Dose: 100 mls/hr Documented by: Lactulose (Lactulose Soln 10 Gm/15 Ml 30 Ml Ud Cup) 30 gm PO BID [facility] Last Admin: 07/28/21 08:43 Dose: 30 gm Documented by: Lorazepam (Lorazepam 2 Mg/Ml Sdv) 0.5 mg IVPUSH Q4H PRN PRN Reason: Agitation Morphine Sulfate (Morphine 2 Mg/Ml Syringe) 2 mg IVPUSH Q4H PRN PRN Reason: Pain (severe 7-10) Last Admin: 07/28/21 10:32 Dose: 2 mg Documented by: Ondansetron HCl (Ondansetron 4 Mg/2 Ml Sdv) 4 mg IV Q6H PRN PRN Reason: Nausea/Vomiting Pantoprazole Sodium (Pantoprazole 40 Mg Tab.Cr) 40 mg PO BID [facility] Last Admin: 07/28/21 08:43 Dose: 40 mg Documented by: Posaconazole [ Posaconazole] 100 Mg Tablet.Dr Ptom 0 each PO DAILY [facility] Last Admin: 07/28/21 08:44 Dose: 3 each Documented by: Sodium Chloride (Sodium Chloride 0.9% 10 Ml Syringe) 10 ml FLUSH ASDIRECTED PRN PRN Reason: Keep Vein Open Last Admin: 07/27/21 21:17 Dose: 10 ml Documented by: Spironolactone (Spironolactone 100 Mg Tab) 100 mg PO DAILY [facility] Last Admin: 07/28/21 08:42 Dose: 100 mg Documented by: Thiamine HCl (Thiamine 100 Mg Tab) 100 mg PO DAILY [facility] Last Admin: 07/28/21 08:43 Dose: 100 mg Documented by: Discontinued Medications Amlodipine Besylate (Amlodipine 5 Mg Tab) 5 mg PO DAILY [facility] Last Admin: 07/25/21 08:51 Dose: 5 mg Documented by: Amlodipine Besylate (Amlodipine 2.5 Mg Tab) 2.5 mg PO ONETIME ONE Stop: 07/25/21 17:43 Last Admin: 07/25/21 18:28 Dose: 2.5 mg Documented by: Diphenhydramine HCl (Diphenhydramine 50 Mg/Ml Sdv) 50 mg IVPUSH ASDIRECTED PRN PRN Reason: hypersensitivity reaction Enoxaparin Sodium (Enoxaparin 40 Mg/0.4 Ml Syringe) 40 mg SUBCUT DAILY [facility] Last Admin: 07/23/21 12:25 Dose: Not Given Documented by: Epinephrine HCl (Epinephrine 1 Mg/Ml Sdv) 0.3 mg IM ASDIRECTED PRN PRN Reason: hypersensitivity reaction Famotidine (Famotidine 20 Mg/2 Ml Sdv) 20 mg IVPUSH ASDIRECTED PRN PRN Reason: hypersensitivity reaction Furosemide (Furosemide 20 Mg/2 Ml Vial) 20 mg IVPUSH ONETIME ONE Stop: 07/24/21 12:46 Last Admin: 07/24/21 13:51 Dose: 20 mg Documented by: Sodium Chloride (Normal Saline) 1,000 mls @ 1,000 mls/hr IV .BOLUS [facility] Last Admin: 07/22/21 16:18 Dose: 1,000 mls/hr Documented by: Sodium Chloride (Normal Saline) 1,000 mls @ 1,000 mls/hr IV ONETIME ONE Stop: 07/22/21 18:17 Last Admin: 07/22/21 17:24 Dose: 1,000 mls/hr Documented by: CASIRIVIMAB/IMDEVIMAB 10 ml/ (Sodium Chloride) 110 mls @ 220 mls/hr IV ONETIME ONE Stop: 07/22/21 20:12 Last Admin: 07/22/21 20:42 Dose: 220 mls/hr Documented by: Sodium Chloride (Normal Saline) 1,000 mls @ 125 mls/hr IV ASDIRECTED [facility] Last Admin: 07/23/21 06:25 Dose: 125 mls/hr Documented by: Vancomycin HCl 1.75 gm/ Sodium (Chloride) 500 mls @ 250 mls/hr IV ONETIME ONE Stop: 07/23/21 14:29 Last Admin: 07/23/21 12:46 Dose: 250 mls/hr Documented by: Vancomycin HCl 1 gm/Vancomycin HCl 250 mg/ Sodium Chloride 250 mls @ 166.667 mls/hr IV Q12H [facility] Last Admin: 07/24/21 23:41 Dose: 166.667 mls/hr Documented by: Lactulose (Lactulose Soln 10 Gm/15 Ml 30 Ml Ud Cup) 20 gm PO TID [facility] Last Admin: 07/24/21 08:51 Dose: 20 gm Documented by: Lactulose (Lactulose Soln 10 Gm/15 Ml 30 Ml Ud Cup) 30 gm PO TID [facility] Last Admin: 07/24/21 20:35 Dose: 30 gm Documented by: Methylprednisolone Sodium Succinate (Methylprednisolone Sodium Succinate 125 Mg/2 Ml Sdv) 125 mg IVPUSH ASDIRECTED PRN PRN Reason: hypersensitivity reaction Posaconazole [ Posaconazole] 100 Mg Tablet.Dr 0 each PO DAILY [facility] Last Admin: 07/23/21 12:26 Dose: Not Given Documented by: Sodium Chloride (Sodium Chloride 0.9% 10 Ml Syringe) 30 ml FLUSH ASDIRECTED [facility] Vancomycin HCl (Pharmacy To Dose - Vancomycin) 1 dose .XX ASDIRECTED PRN PRN Reason: RX TO DOSE VANCO - Exam Urinary Catheter Total Time: 0Days 7Hours Physical Findings Comments:: General: delirium, speaks to himself, Cooperative, No Acute Distress. HEENT: Pupils Equal, Pupils Reactive, Mucous Membr. Moist/[place] Neck: Supple, Trachea Midline Lungs: Clear to Auscultation, Normal Respiratory Effort Cardiovascular: Regular Rate, Regular Rhythm GI/Abdominal Exam: Normal Bowel Sounds, Soft, Non-Tender, Distended (but improved ), Tender (mild generalized - but improved ), Hepatomegaly, Splenomegaly. No: Guarding, Rigid (Male) Exam: Deferred Back Exam: Normal Inspection, Full Range of Motion Extremities: Normal Inspection, Normal Range of Motion, Non-Tender, Normal Capillary Refill, Pedal Edema (trace - 1+) Skin: Warm, Dry, Intact Neurological: No New Focal Deficit Psy/Mental Status: Alert, Normal Affect, Normal Mood - Patient Data Lab Results Last 24 hrs: Laboratory Results - last 24 hr 07/28/21 07/28/21 Range/Units 07:16 07:16 WBC 7.40 (4.23-9.07) K/mm3 RBC 3.59 L (4.63-6.08) M/mm3 Hgb 11.1 L (13.7-17.5) gm/dl Hct 33.8 L (40.1-51.0) % MCV 94.2 H (79.0-92.2) fl MCH 30.9 (25.7-32.2) pg MCHC 32.8 (32.2-35.5) g/dl RDW Std Deviation 63.8 H (35.1-43.9) fL Plt Count 52 L (163-337) K/mm3 MPV 12.1 (9.4-12.3) fl Neut % (Auto) 82.7 H (34.0-67.9) % Lymph % (Auto) 8.4 L (21.8-53.1) % Frederick % (Auto) 8.4 (5.3-12.2) % Eos % (Auto) 0 L (0.8-7.0) Baso % (Auto) 0.1 (0.1-1.2) % Neut # (Auto) 6.12 H (1.78-5.38) K/mm3 Lymph # (Auto) 0.62 L (1.32-3.57) K/mm3 Frederick # (Auto) 0.62 (0.30-0.82) K/mm3 Eos # (Auto) 0.00 L (0.04-0.54) K/mm3 Baso # (Auto) 0.01 (0.01-0.08) K/mm3 Manual Slide Review Abnormal smear Sodium 139 (136-145) mEq/L Potassium 4.6 (3.5-5.1) mEq/L Chloride 103 (98-107) mEq/L Carbon Dioxide 30 (21-32) mEq/L Anion Gap 10.6 (5-15) BUN 26 H (7-18) mg/dL Creatinine 0.8 (0.7-1.3) mg/dL Est Cr Clr Drug Dosing 82.63 mL/min Estimated GFR (MDRD) > 60 (>60) mL/min BUN/Creatinine Ratio 32.5 H (14-18) Glucose 194 H (70-99) mg/dL Calcium 8.6 (8.5-10.1) mg/dL Total Bilirubin 3.4 H (0.2-1.0) mg/dL AST 23 (15-37) U/L ALT 65 H (16-63) U/L Alkaline Phosphatase 95 (46-116) U/L Total Protein 5.4 L (6.4-8.2) g/dl Albumin 2.6 L (3.4-5.0) g/dl Globulin 2.8 gm/dL Albumin/Globulin Ratio 0.9 L (1-2) Result Diagrams: 07/28/21 07:16 07/28/21 07:16 Sepsis Event Note - Evaluation Sepsis Screening Result: No Definite Risk - Focused Exam Vital Signs: Vital Signs Temp Pulse Pulse Resp BP Pulse Ox 07/28/21 08:42 126/76 07/28/21 07:26 36.6 C 68 16 126/76 100 07/28/21 06:00 36.8 C 66 14 138/83 98 07/27/21 23:53 72 14 98 - Problem List Review Problem List Initiated/Reviewed/Updated: Yes - My Orders Last 24 Hours: My Active Orders 07/27/21 10:54 LORazepam [Ativan] 0.5 mg IVPUSH Q4H PRN 07/27/21 14:47 Code Status [Resuscitation Status] Routine 07/29/21 05:00 CBC WITH AUTO DIFF [HEME] DAILY COMPREHENSIVE METABOLIC PN,CMP [CHEM] DAILY 07/29/21 09:00 Consult to Hospice [CONS] Routine 07/30/21 05:00 CBC WITH AUTO DIFF [HEME] DAILY COMPREHENSIVE METABOLIC PN,CMP [CHEM] DAILY 07/31/21 05:00 CBC WITH AUTO DIFF [HEME] DAILY COMPREHENSIVE METABOLIC PN,CMP [CHEM] DAILY - Assessment Assessment:: 07/24/2021 This is a 66-year-old male with a history of prostate cancer, colon cancer, non- Hodgkin's lymphoma, metastasis to the brain, and chronic alcoholic cirrhosis who was admitted due to significant confusion, lactic acidosis, and severe generalized weakness. Today the patient is more alert and able to carry on a basic conversation although he does trail off and remains generally quite confused. Patient does state that his belly is quite full and that he has some mild tenderness. Because of this we will order a CT scan of the abdomen and pel vis. Suspect this is due to ascites from his liver failure and significant IV fluids given due to lactic acidosis. We will start him on spironolactone 100 mg currently and also start Lasix with dose pending results of CT scan. His white count today is 5.67. Hemoglobin is up to 9.2. Platelet has improved slightly to 42,000. Neutrophils are elevated at 83.6. Sodium is 141. Potassium 4.0. Chloride 109. Carbon dioxide 21. Anion gap is 15. BUN is 29. Creatinine 0.9. GFR greater than 60. Glucose is 207. Calcium is 8.0. Magnesium 2.0. Ammonia is 45. CRP is less than 0.2. Procalcitonin from yesterday 0.18. UA was negative. Patient continues on meropenem and vancomycin pending blood cultures. No fevers throughout his stay. Patient remains in airborne and contact isolation due to Covid but remains on room air with saturations in the upper 90s. Patient's ammonia did increase today as noted in nursing reports patient has yet to have a bowel movement despite starting on Lasix yesterday. Will increase Lasix dosing and monitor for bowel movements. Patient was working with PT and OT today and did ambulate a bit, which is also an improvement. Family is adamant about taking patient home. Patient's daughter contacted at the request of patient and his and update given. They have no concerns with patient staying with us at this time. We will continue current plan and update based on abdominal CT scan results. 07/25/2021 66-year-old male admitted to the floor due to acute weakness and confusion. Patient does have a history of prostate cancer, colon cancer, non-Hodgkin's lymphoma, metastasis to the brain, and chronic alcoholic cirrhosis. CT scan of the abdomen and pelvis was obtained yesterday showing significant ascites. Prior CT scan from a few months before was reviewed and shows a dramatic increase in ascites. Patient was started on 100 mg spironolactone and given IV push Lasix. We have increased Lasix to 40 mg IV push today and will adjust pending progress. We will continue to monitor I&O and daily weights. His a mmonia today is less than 10. His mental status has significantly improved to the point where he is able to carry on a fairly basic conversation. He did remember me from yesterday. He does still tend to trail off and sometimes has difficulty finding words. Per family mental status was very stable prior to admission. Patient remains on Covid precautions but is on room air and showing no respiratory distress. Labs today show a WBC of 7.36. Hemoglobin is improved at 9.6. Platelets have improved to 48,000. Neutrophils are elevated at 82.8. Sodium is 141. Potassium 4.0. Chloride 108. Carbon dioxide 25. Anion gap is 12.0. BUN is 26. Creatinine 1.0. GFR greater than 60. Glucose is 199. Calcium 8.1. Bilirubin 2.7. AST is 22, ALT 63, alkaline phosphatase 81. Protein is 5.0. Albumin is 2 4. We will discontinue vancomycin but continue cefepime given patient's immunosuppression and concerns for infection on admission. We will look at decreasing or discontinuing this over the next few days. We will continue diuresis with hopeful discharge this weekend or early next week. We will decrease lactulose to 30 mg twice daily with goal of 2-3 soft BMs per day. - Plan Plan:: COVID-19 Lymphopenia, resolved Immunosuppression due to chronic steroid use * O2 as needed to keep saturations >90% * IS/Acapella * Given monoclonal antibodies * Continue home dexamethasone * Continuous pulse oximetry * Telemetry (patient agitated at times. Cannot wear the monitor well) * PRN albuterol nebulizer * Blood cultures negative thus far * Daily labs * Airborne/contact precautions * Will hold off remdesivir at this point per Dr. Molina Generalized weakness * PT/OT * CM/SW Thrombocytopenia, improving * Acute on chronic * Pharmacologic VTE prophylaxis contraindicated * Monitor - consider transfusion if platelet cound <10K Lactic acidosis, Resolved Dehydration, resolved * Given IV fluids in ED * Continue cefepime empirically based on toxic granulation on smear and chronic immunosuppression * Discontinue vancomycin * Procalcitonin -0.18 * Sepsis screen: Unknown if bacterial infection at this point pending cultures/UA/Procalcitonin. WBC greater than 4 but less than 12. No tachycardia, no tachypnea. No fever. Does not meet criteria. * Obtain UA - negative * Blood cultures negative thus far Aspergillosis * Reportedly recently reactivated * Continue home antifungal * No acute concerns Liver cirrhosis, alcoholic Hyperammonemia Confusion Hyperbilirubinemia Hepatic encephalopathy Ascites Abdominal pain * Lactulose 30mg BID - gaol of 2-3 soft stools per day * Monitor labs * CT abdomen/pelvis -prominent ascites with the evidence of a prior cirrhosis. Ascites a increased from a prior exam. * 100 mg daily spironolactone * 40 mg daily IV push Lasix * Monitor I&O and daily weights Anemia, improving * Acute on chronic * Likely exacerbated by IV fluids * Monitor labs B-cell lymphoma of intrapelvic lymph nodes Colon cancer 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 History of prostate cancer History of colon resection Prostate disorder * Discuss comfort care/hospice with /family in future - refusing, wants patient full code * Oncology follow-up GERD * No acute concerns * Continue home Protonix Code status: Full code PCP: Dr. Marcelino Neurologist: Dr. Mike Radiation oncologist: Dr. Kennedy. Oncologists: Dr. Miller, Dr. Martines and locally Dr. Rowe DVT prophylaxis: SCDs/ROSANGELA vasquez (Pharmacological VTE prophylaxis contraindicated) Disposition: Admitted inpatient for treatment and further workup of Hyperammonemia, generalized weakness, and confusion. Pt. is also COVID-19 positive. Met and daughter yesterday afternoon. The and daughter would like to pursue hospice care. Met PCP Dr. Marcelino on medical floor early yesterday afternoon who felt it is kit ropriate for hospice care. 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
[2021-07-28] MEDS: Morphine 10 MG/0.5 ML Oral Syringe PO PRN (17:40)
[2021-07-29] MEDS: Cefepime 2 GM in Sodium Chloride 0.9% 50 ML IV SCH (04:24)
[2021-07-29] MEDS: Morphine 10 MG/0.5 ML Oral Syringe PO PRN ×2 (04:25→11:18)
[2021-07-29] MEDS: Spironolactone 100 MG Tab PO SCH (08:18)
[2021-07-29] MEDS: amLODIPine 5 MG Tab PO SCH (08:19)
[2021-07-29] MEDS: Dexamethasone 4 MG Tab PO SCH (08:19)
[2021-07-29] MEDS: Thiamine 100 MG Tab PO SCH (08:20)
[2021-07-29] MEDS: Furosemide 40 MG/4 ML VIAL IVPUSH SCH (08:20)
[2021-07-29] MEDS: Lactulose Soln 10 GM/15 ML 30 ML UD Cup PO SCH (08:20)
[2021-07-29] MEDS: Pantoprazole 40 MG Tab.CR PO SCH (08:20)
[2021-07-29] MEDS: Morphine 2 MG/ML SYRINGE IVPUSH PRN (08:29)
[2021-07-29] MEDS: POSACONAZOLE 100 MG PO SCH (08:32)
[2021-07-29 08:59] VITALS: PULSE 86
[2021-07-29 09:51] VITALS: BP 165/88
--- NOTE | 2021-07-29 10:43 | PCM.DCSUM1 ---
Discharge Summary - Hospital Course HPI Initial Comments: This is a 66-year-old male who presents to our ED on 07/22/2021 via [facility] with confusion, generalized weakness, and anorexia. He has a history of non-Hodgkin's lymphoma which was diagnosed a few years ago and treated at the [facility]. He has reportedly been doing well with this however he was recently diagnosed with colon cancer and was found to have metastasis to the brain. He reportedly saw radiation oncology and they recommended palliative radiation with 5 treatments. He completed these and reportedly had generalized weakness but no effect to his mental status. He arrived home on Thursday and was having difficulty eating. He was also noted to be confused. In the ED he did not know his name, where he was, or approximate time. No recent cough, vomiting, or diarrhea. He has a history of alcoholic liver cirrhosis and reportedly quit drinking back in 2014. In the ED twelve-lead EKG was obtained showing a sinus rhythm at 60 bpm with left axis deviation. Temp was 98.6. Pulse 68. Respirations 12. Blood pressure 154/102. Pulse ox 99%. Labs are obtained showing a WBC of 6.25. Hemoglobin is 10.5. Platelet 49,000. Neutrophils are elevated at 80.3. INR is 1.34. Lactic acid is 3.5. Sodium is 141. Potassium 4.2. Chloride 107. Carbon dioxide 25. Anion gap is 13.2. BUN is 32. Creatinine 0.8. GFR greater than 60. Glucose 185. Calcium 8.2. Magnesium 2.0. Total bilirubin 2.5. AST is 25, ALT 80, alkaline phosphatase 92. Ammonia was elevated at 39. Troponin less than 0.017. CRP was normal at less than 0.2. Protein was 5.5. Albumin 2.6. Lipase 108. SARS-CoV-2 RNA was positive. Patient was given multiple fluid boluses and his lactic acidosis did improve. 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 No contrast was utilized difficult to completely exclude metastasis. If further evaluation for metastasis is needed, consider MRI study with and with out gadolinium. Mild generalized atrophy and minimal atherosclerotic calcification within the carotid siphon is noted but no other acute abnormality. Chest x-ray was obtained showing left ventricular configuration of the heart but nothing acute. ED provider did have multiple conversations with the patient's [facility] oncologist, Dr. Hurley. He reported that the brain lesion looked better and said it was felt to be lymphoma. Patient was offered palliative radiation providers not feel the outcome will be good. ED provider called hospitalist oncologist and patient was accepted in [place] at [place] pending his Covid test. Surprisingly the patient's Covid test did return positive and [place] reports now they are unable to take him. Patient was given monoclonal antibodies after it was okayed by Dr. Cohen, oncologist in [place]. He was subsequently admitted to the medical floor here for management of his hyperammonemia, COVID-19, lactic acidosis, confusion, and generalized weakness. He carries a history of recurrent pneumonia, GERD, liver cirrhosis, prostate disorder, anemia, immunosuppression, non-Hodgkin's lymphoma, prostate cancer, colon cancer with mets to the brain. He is a full code. His PCP is Dr. Marcelino. His neurologist is Dr. Mike. His radiation oncologist is Dr. Kennedy. He also sees Dr. Miller and Dr. Martines with oncology. Diagnosis: Stroke: No - Discharge Data Discharge Date: 07/29/21 (Admit date: 07/22/2021) Discharge Disposition: DC/Tfer to Other 70 Condition: Poor - Referral to Home Health Primary Care Physician: Sidney Marcelino MD - Discharge Diagnosis/Problem(s) (1) Generalized weakness SNOMED Code(s): 62216338 ICD Code: R53.1 - WEAKNESS Status: Acute Priority: High Current Visit: Yes (2) COVID-19 SNOMED Code(s): 171230534 ICD Code: U07.1 - COVID-19 Status: Acute Priority: High Current Visit: Yes (3) Confusion SNOMED Code(s): 567785326 ICD Code: R41.0 - DISORIENTATION, UNSPECIFIED Status: Acute Priority: High Current Visit: Yes (4) Lactic acidosis SNOMED Code(s): 79768701 ICD Code: E87.2 - ACIDOSIS Status: Resolved Priority: High Current Visit: Yes (5) Hyperammonemia SNOMED Code(s): 1683736 ICD Code: E72.20 - DISORDER OF UREA CYCLE METABOLISM, UNSPECIFIED Status: Acute Priority: Medium Current Visit: Yes (6) Anemia SNOMED Code(s): 667349824 ICD Code: D64.9 - ANEMIA, UNSPECIFIED Status: Acute Priority: Medium Current Visit: Yes Qualifiers: Anemia type: other cause Other causes of anemia: antineoplastic chemotherapy Qualified Code(s): D64.81 - Anemia due to antineoplastic chemotherapy; T45.1X5A - Adverse effect of antineoplastic and immunosuppressive drugs, initial encounter (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 SNOMED Code(s): 623245150, 669899507 ICD Code: C85.16 - UNSPECIFIED B-CELL LYMPHOMA, INTRAPELVIC LYMPH NODES Status: Chronic Priority: Medium Current Visit: Yes Qualifiers: B-cell lymphoma type: diffuse large B-cell Qualified Code(s): C83.36 - Diffuse large B-cell lymphoma, intrapelvic lymph nodes (8) Colon cancer SNOMED Code(s): 563139350 ICD Code: C18.9 - MALIGNANT NEOPLASM OF COLON, UNSPECIFIED Status: Chronic Priority: High Current Visit: Yes Qualifiers: Colon location: unspecified part of colon Qualified Code(s): C18.9 - Malignant neoplasm of colon, unspecified (9) 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 SNOMED Code(s): 818294369, 023988875 ICD Code: C18.9 - MALIGNANT NEOPLASM OF COLON, UNSPECIFIED; C79.31 - SECONDARY MALIGNANT NEOPLASM OF BRAIN Status: Chronic Priority: High Current Visit: Yes (10) Thrombocytopenia SNOMED Code(s): 050020826 ICD Code: D69.6 - THROMBOCYTOPENIA, UNSPECIFIED Status: Chronic Priority: High Current Visit: Yes (11) Hyperbilirubinemia SNOMED Code(s): 31513655 ICD Code: E80.6 - OTHER DISORDERS OF BILIRUBIN METABOLISM Status: Acute Current Visit: Yes (12) Lymphopenia Status: Resolved Priority: Medium Current Visit: Yes (13) Liver cirrhosis, alcoholic SNOMED Code(s): 318082957 ICD Code: K70.30 - ALCOHOLIC CIRRHOSIS OF LIVER WITHOUT ASCITES Status: Chronic Priority: Medium Current Visit: Yes Qualifiers: Ascites presence: with ascites Qualified Code(s): K70.31 - Alcoholic cirrhosis of liver with ascites (14) GERD (gastroesophageal reflux disease) SNOMED Code(s): 770708341 ICD Code: K21.9 - GASTRO-ESOPHAGEAL REFLUX DISEASE WITHOUT ESOPHAGITIS Status: Acute Current Visit: Yes (15) Recurrent pneumonia SNOMED Code(s): 126367916 ICD Code: J18.9 - PNEUMONIA, UNSPECIFIED ORGANISM Status: Acute Current Visit: Yes (16) Prostate disorder SNOMED Code(s): 83562871 ICD Code: N42.9 - DISORDER OF PROSTATE, UNSPECIFIED Status: Acute Current Visit: Yes (17) Immunosuppression due to chronic steroid use SNOMED Code(s): 424742144 ICD Code: D84.821 - IMMUNODEFICIENCY DUE TO DRUGS; T38.0X5A - ADVERSE EFFECT OF GLUCOCORT/SYNTH ANALOG, INIT; Z79.52 - MONITOR TECHNICIAN (CURRENT) USE OF SYSTEMIC STEROIDS Status: Acute Current Visit: Yes (18) History of prostate cancer SNOMED Code(s): 675810268 ICD Code: Z85.46 - PERSONAL HISTORY OF MALIGNANT NEOPLASM OF PROSTATE Status: Acute Current Visit: Yes (19) History of colon resection SNOMED Code(s): 530166139 ICD Code: Z90.49 - ACQUIRED ABSENCE OF OTHER SPECIFIED PARTS OF DIGESTIVE TRACT Status: Acute Current Visit: Yes (20) Dehydration SNOMED Code(s): 13433181 ICD Code: E86.0 - DEHYDRATION Status: Resolved Priority: High Current Visit: Yes (21) Aspergillosis SNOMED Code(s): 42717099 ICD Code: B44.9 - ASPERGILLOSIS, UNSPECIFIED Status: Chronic Priority: Medium Current Visit: Yes (22) Hepatic encephalopathy SNOMED Code(s): 51517082 ICD Code: K72.90 - HEPATIC FAILURE, UNSPECIFIED WITHOUT COMA Status: Acute Priority: High Current Visit: Yes (23) Ascites SNOMED Code(s): 463249161 ICD Code: R18.8 - OTHER ASCITES Status: Acute Priority: High Current Visit: Yes Qualifiers: Ascites type: due to alcoholic cirrhosis Qualified Code(s): K70.31 - Alcoholic cirrhosis of liver with ascites - Patient Summary/Data Consults: Consultations 07/22/21 21:33 PT Evaluation and Treatment [CONS] Routine 07/23/21 09:53 Consult to Case Management/Grinding Room Supervisor [CONS] Routine 07/29/21 09:00 Consult to Hospice [CONS] Routine Labs Pending at D/C: Outstanding Posaconazole level at request of [facility]/Family Recommended Follow-up Testing/Procedures: Follow-up with primary care provider within 5 to 7 days of discharge, sooner if needed. * Recommending hospice care and family is interested however hospice unavailable at discharge due to short staff * Discharged on as needed liquid morphine for pain. PCP may need to increase this dosing. * Started on p.o. thiamine supplementation. * Started on spironolactone and Lasix due to ascites. * Started on Norvasc 7.5 mg due to hypertension. * All other home medications continued at discharge. Follow-up with hospice if they become available. Hospital Course: 66-year-old male with a history of prostate cancer, colon cancer, non-Hodgkin's lymphoma, metastasis to the brain, and chronic alcoholic cirrhosis who was admitted to the floor on 07-22-2021 due to significant confusion, lactic acidosis, and severe generalized weakness. Patient given IV fluids which did resolve his lactic acidosis. Toxic granulation was noted on the patient's blood smear and he was started on cefepime and vancomycin. Patient did not meet sepsis criteria. Procalcitonin was 0.18. Blood cultures were negative. UA was negative. No signs of infiltrate on imaging. Vancomycin was ultimately discontinued and patient continued cefepime until discharge. Patient does have a history of aspergillus which is being treated through the [facility]. Patient's home antifungal was continued. Patient was also noted to be COVID-19 positive and is immunosuppressed due to chronic steroid use. His steroids were continued and patient showed no respiratory symptoms. Patient is on dexamethasone at baseline and he did not receive remdesivir while here. Patient continues to have generalized weakness and did work with PT and OT. Patient does have known history of liver cirrhosis as noted prior and his ammonia was noted to be elevated at 45 on admission. He was started on 30 mg 3 times daily lactulose and ultimately decreased to 30 mg twice daily lactulose once his ammonia decrease. He was noted to have a distended belly with significant ascites noted on imaging. He was started on 100 mg daily spironolactone and 40 mg daily IV push Lasix. He will be decreased to 40 mg p.o. daily Lasix on discharge. Overall he did state that his belly distention and pain did resolve. Patient noted to have acute on chronic anemia and thrombocytopenia which both improved throughout his stay. As noted patient has a significant history of cancer with a known metastatic disease to the patient's brain. He reportedly recently underwent 5 radiation treatments at the [facility] for palliative radiation. Multiple conversations were had with the patient's family as he was initially a full code on admission and there appeared to be some confusion as to the severity of the patient's condition. Ultimately family did agree to DNR/DNI status. Family was interested in hospice locally, however hospice reports they do not have enough staff at this time to take any more patients into their services. Because of this patient's primary care provider, Dr. Marcelino was contacted, who agrees to watch over the patient. Ultimately family requested patient be discharged home. Family did have confusion that waxed and waned. He will be discharged on 100 mg p.o. spironolactone daily, 30 mg p.o. twice daily lactulose, 40 mg p.o. daily Lasix, 7.5 mg p.o. daily Norvasc for hypertension, 100 mg p.o. daily thiamine, and 5 mg p.o. every hour as needed morphine. Family was advised of the concerns with morphine including respiratory depression and constipation. Recommend patient follow-up with primary care provider within 5 to 7 days of discharge, sooner if needed. Recommend hospice consultation once staffing needs are met. Patient was on room air. Ultimately discharged home today with family care. - Patient Instructions Diet: Usual Diet as Tolerated Activity: Bedrest, May Use Bathroom, No Strenuous Activities, Rest and Relax Today Driving: Do Not Drive Showering/Bathing: May Shower Notify Provider of: Fever, Increased Pain, Nausea and/or Vomiting Other/Special Instructions: Follow-up with primary care provider within 5 to 7 days of discharge, sooner if needed. Follow-up with hospice care as discussed. In the absence of hospice, we did discuss the plan with your primary care provider, Dr. Marcelino. He may be contacted with concerns. You should continue to isolate/quarantine for a total of 10 days from symptom onset due to your positive Covid test. You were not treated for this while here as you did not have any symptoms. You will likely receive a call from a top case assembler from the [facility]. Please follow their directions. You were started on a new medication called Norvasc which she will take daily to help regulate your blood pressure. You were started on a new medication called thiamine which is a supplement for people with a history of alcohol abuse. You were started on a new medication called lactulose. You should take this twice a day to help keep your ammonia level down. No need for antibiotic at discharge. One will not be prescribed. All other home medications were continued as noted. Should symptoms return or worsen contact primary care provider or return to the emergency room. - Discharge Plan *PRESCRIPTION DRUG MONITORING PROGRAM REVIEWED*: No *COPY OF PRESCRIPTION DRUG MONITORING REPORT IN PATIENT DIANA: No Prescriptions/Med Rec: Spironolactone [Aldactone] 100 mg PO DAILY #20 tablet Lactulose [Cephulac] 30 gm PO BID #40 cup Furosemide [Lasix] 40 mg PO DAILY #20 tab Morphine [Morphine 20 MG/ML Oral Soln] 5 mg PO Q1H PRN #20 ml PRN Reason: Pain amLODIPine [Norvasc] 7.5 mg PO DAILY #20 tablet Thiamine [Vitamin B-1] 100 mg PO DAILY #20 tablet Home Medications: Home Meds Pantoprazole [ProTONIX] 40 mg PO BID 05/23/20 [History] Posaconazole 300 mg PO DAILY 07/22/21 [History] dexAMETHasone [Dexamethasone] 4 mg PO BID 07/22/21 [History] Furosemide [Lasix] 40 mg PO DAILY #20 tab 07/29/21 [Rx] Lactulose [Cephulac] 30 gm PO BID #40 cup 07/29/21 [Rx] Morphine [Morphine 20 MG/ML Oral Soln] 5 mg PO Q1H PRN #20 ml 07/29/21 [Rx] Spironolactone [Aldactone] 100 mg PO DAILY #20 tablet 07/29/21 [Rx] Thiamine [Vitamin B-1] 100 mg PO DAILY #20 tablet 07/29/21 [Rx] amLODIPine [Norvasc] 7.5 mg PO DAILY #20 tablet 07/29/21 [Rx] Oxygen Therapy Mode: Room Air Patient Handouts: 10 Things You Can Do to Manage Your COVID-19 Symptoms at Home - [facility] (02/15/2021), Living With Heart Failure, Dehydration, Adult Forms: ED Department Discharge Referrals: Sidney Romano MD [Primary Care Provider] - 08/06/21 8:00 am (Please arrive at 7:45 for check in, This is the only time that was avialable if needed you can call and reschedule.) - Discharge Summary/Plan Comment DC Time >30 min.: Yes Total # of Minutes for Discharge Time: 45 - General Info Date of Service: 07/29/21 Admission Dx/Problem (Free Text: Admission Diagnosis/Problem Admission Diagnosis/Problem Confusion Functional Status: Reports: Pain Controlled, Tolerating Diet, Urinating. Denies: Ambulating, New Symptoms - Review of Systems Systems Review Comment: Unable to to reliably obtain ROS as patient is quite confused. Denies any pain and states he is doing okay. - Patient Data Vitals - Most Recent: Last Vital Signs Temp 99.0 F 07/29/21 07:48 Pulse 86 07/29/21 07:48 Resp 16 07/29/21 07:48 BP 165/88 H 07/29/21 08:19 Pulse Ox 100 07/29/21 07:48 Weight - Most Recent: 185 lb 6.4 oz I&O - Last 24 hours: Intake & Output 07/28/21 07/29/21 07/29/21 22:59 06:59 14:59 Intake Total 850 400 Balance 850 400 Lab Results - Last 24 hrs: Laboratory Results - last 24 hr 07/29/21 07/29/21 Range/Units 06:33 06:33 WBC 9.36 H (4.23-9.07) K/mm3 RBC 3.62 L (4.63-6.08) M/mm3 Hgb 11.2 L (13.7-17.5) gm/dl Hct 34.2 L (40.1-51.0) % MCV 94.5 H (79.0-92.2) fl MCH 30.9 (25.7-32.2) pg MCHC 32.7 (32.2-35.5) g/dl RDW Std Deviation 63.9 H (35.1-43.9) fL Plt Count 54 L (163-337) K/mm3 MPV 10.9 (9.4-12.3) fl Neut % (Auto) 82.1 H (34.0-67.9) % Lymph % (Auto) 9.1 L (21.8-53.1) % [place] % (Auto) 8.2 (5.3-12.2) % Eos % (Auto) 0 L (0.8-7.0) Baso % (Auto) 0.1 (0.1-1.2) % Neut # (Auto) 7.68 H (1.78-5.38) K/mm3 Lymph # (Auto) 0.85 L (1.32-3.57) K/mm3 [place] # (Auto) 0.77 (0.30-0.82) K/mm3 Eos # (Auto) 0.00 L (0.04-0.54) K/mm3 Baso # (Auto) 0.01 (0.01-0.08) K/mm3 Manual Slide Review Abnormal smear Sodium 141 (136-145) mEq/L Potassium 4.8 (3.5-5.1) mEq/L Chloride 104 (98-107) mEq/L Carbon Dioxide 29 (21-32) mEq/L Anion Gap 12.8 (5-15) BUN 28 H (7-18) mg/dL Creatinine 1.0 (0.7-1.3) mg/dL Est Cr Clr Drug Dosing 66.10 mL/min Estimated GFR (MDRD) > 60 (>60) mL/min BUN/Creatinine Ratio 28.0 H (14-18) Glucose 253 H (70-99) mg/dL Calcium 8.7 (8.5-10.1) mg/dL Total Bilirubin 3.4 H (0.2-1.0) mg/dL AST 20 (15-37) U/L ALT 64 H (16-63) U/L Alkaline Phosphatase 101 (46-116) U/L Total Protein 5.6 L (6.4-8.2) g/dl Albumin 2.8 L (3.4-5.0) g/dl Globulin 2.8 gm/dL Albumin/Globulin Ratio 1.0 (1-2) ZAHIRA Results - Last 24 hrs: Microbiology 07/22/21 14:50 Blood Culture - Final Blood - Venous - Lab Draw 07/22/21 15:00 Blood Culture - Final Blood - Venous Med Orders - Current: Current Medications Acetaminophen (Acetaminophen 325 Mg Tab) 650 mg PO Q4H PRN PRN Reason: Pain (Mild 1-3)/fever Last Admin: 07/24/21 19:23 Dose: 650 mg Documented by: Acetaminophen (Acetaminophen 650 Mg Supp) 650 mg RECTAL Q4H PRN PRN Reason: Pain (mild 1-3) Albuterol (Albuterol 0.083% 2.5 Mg/3 Ml Neb Soln) 2.5 mg NEB Q2H PRN PRN Reason: Shortness Of Breath/wheezing Amlodipine Besylate (Amlodipine 5 Mg Tab) 7.5 mg PO DAILY [facility] Last Admin: 07/29/21 08:19 Dose: 7.5 mg Documented by: Dexamethasone (Dexamethasone 4 Mg Tab) 4 mg PO BID [facility] Last Admin: 07/29/21 08:19 Dose: 4 mg Documented by: Furosemide (Furosemide 40 Mg/4 Ml Vial) 40 mg IVPUSH DAILY [facility] Last Admin: 07/29/21 08:20 Dose: 40 mg Documented by: Hydralazine HCl (Hydralazine 20 Mg/Ml Sdv) 10 mg IVPUSH Q4H PRN PRN Reason: Hypertension Hydromorphone HCl (Hydromorphone 0.5 Mg/0.5 Ml Syringe) 0.5 mg IVPUSH Q4H PRN PRN Reason: Pain (severe 7-10) Cefepime HCl 2 gm/ Sodium (Chloride) 50 mls @ 100 mls/hr IV Q8H [facility] Last Admin: 07/29/21 04:24 Dose: 100 mls/hr Documented by: Lactulose (Lactulose Soln 10 Gm/15 Ml 30 Ml Ud Cup) 30 gm PO BID [facility] Last Admin: 07/29/21 08:20 Dose: 30 gm Documented by: Lorazepam (Lorazepam 2 Mg/Ml Sdv) 0.5 mg IVPUSH Q4H PRN PRN Reason: Agitation Morphine Sulfate (Morphine 2 Mg/Ml Syringe) 2 mg IVPUSH Q4H PRN PRN Reason: Pain (severe 7-10) Last Admin: 07/29/21 08:29 Dose: 2 mg Documented by: Morphine Sulfate (Morphine 10 Mg/0.5 Ml Oral Syringe) 10 mg PO Q6H PRN PRN Reason: Pain Last Admin: 07/29/21 04:25 Dose: 10 mg Documented by: Ondansetron HCl (Ondansetron 4 Mg/2 Ml Sdv) 4 mg IV Q6H PRN PRN Reason: Nausea/Vomiting Pantoprazole Sodium (Pantoprazole 40 Mg Tab.Cr) 40 mg PO BID [facility] Last Admin: 07/29/21 08:20 Dose: 40 mg Documented by: Posaconazole [ Posaconazole] 100 Mg Tablet. Ptom 0 each PO DAILY [facility] Last Admin: 07/29/21 08:32 Dose: 3 each Documented by: Sodium Chloride (Sodium Chloride 0.9% 10 Ml Syringe) 10 ml FLUSH ASDIRECTED PRN PRN Reason: Keep Vein Open Last Admin: 07/27/21 21:17 Dose: 10 ml Documented by: Spironolactone (Spironolactone 100 Mg Tab) 100 mg PO DAILY [facility] Last Admin: 07/29/21 08:18 Dose: 100 mg Documented by: Thiamine HCl (Thiamine 100 Mg Tab) 100 mg PO DAILY [facility] Last Admin: 07/29/21 08:20 Dose: 100 mg Documented by: Discontinued Medications Amlodipine Besylate (Amlodipine 5 Mg Tab) 5 mg PO DAILY [facility] Last Admin: 07/25/21 08:51 Dose: 5 mg Documented by: Amlodipine Besylate (Amlodipine 2.5 Mg Tab) 2.5 mg PO ONETIME ONE Stop: 07/25/21 17:43 Last Admin: 07/25/21 18:28 Dose: 2.5 mg Documented by: Diphenhydramine HCl (Diphenhydramine 50 Mg/Ml Sdv) 50 mg IVPUSH ASDIRECTED PRN PRN Reason: hypersensitivity reaction Enoxaparin Sodium (Enoxaparin 40 Mg/0.4 Ml Syringe) 40 mg SUBCUT DAILY [facility] Last Admin: 07/23/21 12:25 Dose: Not Given Documented by: Epinephrine HCl (Epinephrine 1 Mg/Ml Sdv) 0.3 mg IM ASDIRECTED PRN PRN Reason: hypersensitivity reaction Famotidine (Famotidine 20 Mg/2 Ml Sdv) 20 mg IVPUSH ASDIRECTED PRN PRN Reason: hypersensitivity reaction Furosemide (Furosemide 20 Mg/2 Ml Vial) 20 mg IVPUSH ONETIME ONE Stop: 07/24/21 12:46 Last Admin: 07/24/21 13:51 Dose: 20 mg Documented by: Sodium Chloride (Normal Saline) 1,000 mls @ 1,000 mls/hr IV .BOLUS [facility] Last Admin: 07/22/21 16:18 Dose: 1,000 mls/hr Documented by: Sodium Chloride (Normal Saline) 1,000 mls @ 1,000 mls/hr IV ONETIME ONE Stop: 07/22/21 18:17 Last Admin: 07/22/21 17:24 Dose: 1,000 mls/hr Documented by: CASIRIVIMAB/IMDEVIMAB 10 ml/ (Sodium Chloride) 110 mls @ 220 mls/hr IV ONETIME ONE Stop: 07/22/21 20:12 Last Admin: 07/22/21 20:42 Dose: 220 mls/hr Documented by: Sodium Chloride (Normal Saline) 1,000 mls @ 125 mls/hr IV ASDIRECTED [facility] Last Admin: 07/23/21 06:25 Dose: 125 mls/hr Documented by: Vancomycin HCl 1.75 gm/ Sodium (Chloride) 500 mls @ 250 mls/hr IV ONETIME ONE Stop: 07/23/21 14:29 Last Admin: 07/23/21 12:46 Dose: 250 mls/hr Documented by: Vancomycin HCl 1 gm/Vancomycin HCl 250 mg/ Sodium Chloride 250 mls @ 166.667 mls/hr IV Q12H [facility] Last Admin: 07/24/21 23:41 Dose: 166.667 mls/hr Documented by: Lactulose (Lactulose Soln 10 Gm/15 Ml 30 Ml Ud Cup) 20 gm PO TID [facility] Last Admin: 07/24/21 08:51 Dose: 20 gm Documented by: Lactulose (Lactulose Soln 10 Gm/15 Ml 30 Ml Ud Cup) 30 gm PO TID [facility] Last Admin: 07/24/21 20:35 Dose: 30 gm Documented by: Methylprednisolone Sodium Succinate (Methylprednisolone Sodium Succinate 125 Mg/2 Ml Sdv) 125 mg IVPUSH ASDIRECTED PRN PRN Reason: hypersensitivity reaction Posaconazole [ Posaconazole] 100 Mg Tablet.Dr 0 each PO DAILY [facility] Last Admin: 07/23/21 12:26 Dose: Not Given Documented by: Sodium Chloride (Sodium Chloride 0.9% 10 Ml Syringe) 30 ml FLUSH ASDIRECTED [facility] Vancomycin HCl (Pharmacy To Dose - Vancomycin) 1 dose .XX ASDIRECTED PRN PRN Reason: RX TO DOSE VANCO - Exam Quality Assessment: Reports: DVT Prophylaxis. Denies: Supplemental Oxygen, Urine Catheter General: Reports: Alert, Cooperative, No Acute Distress. Denies: Oriented HEENT: Reports: Pupils Equal, Pupils Reactive, Mucous Membr. Moist/[place] Neck: Reports: Supple, Trachea Midline Lungs: Reports: Clear to Auscultation, Normal Respiratory Effort Cardiovascular: Reports: Regular Rate, Regular Rhythm GI/Abdominal Exam: Normal Bowel Sounds, Soft, Non-Tender, Distended (minimal ), Hepatomegaly, Splenomegaly. No: Guarding, Rigid (Male) Exam: Deferred Rectal (Males) Exam: Deferred Back Exam: Reports: Normal Inspection, Full Range of Motion Extremities: Normal Inspection, Normal Range of Motion, Non-Tender, Normal Capillary Refill, Pedal Edema (1+) Skin: Reports: Warm, Dry, Intact Neurological: Reports: No New Focal Deficit Psy/Mental Status: Reports: Alert *Q Meaningful Use (DIS) - VTE *Q VTE Pharmacological Contraindications *Q: Thrombocytopenia
== END 2021-07-29 11:50 | disposition other institution (70) | DRG 441 ==
LOC: JD.ED 13:56 → JD.MS 20:46 → UNDOADMIN 20:46 → JD.MS 20:47
PROVIDERS: ADMIT Family Medicine; ATTEND Family Medicine
PROC: XW033G6 Introduction of REGN-COV2 Monoclonal Antibody into Peripheral Vein, Percutaneous Approach, New Technology Group 6 (ICD-10-PCS; principal; 2021-07-22)
PROC: 8E0ZXY6 Isolation (ICD-10-PCS; 2021-07-23)
DX: D49.6 Neoplasm of unspecified behavior of brain (principal); K72.00 Acute and subacute hepatic failure without coma; E72.4 Disorders of ornithine metabolism; U07.1 COVID-19; J18.9 Pneumonia, unspecified organism; E72.20 Disorder of urea cycle metabolism, unspecified; C83.36 Diffuse large B-cell lymphoma, intrapelvic lymph nodes; K74.60 Unspecified cirrhosis of liver; N42.9 Disorder of prostate, unspecified; D64.9 Anemia, unspecified; C18.9 Malignant neoplasm of colon, unspecified; Z85.038 Personal history of other malignant neoplasm of large intestine; C79.31 Secondary malignant neoplasm of brain; C85.90 Non-Hodgkin lymphoma, unspecified, unspecified site; B44.9 Aspergillosis, unspecified; Z20.822 Contact with and (suspected) exposure to COVID-19; E87.2 Acidosis; D84.821 Immunodeficiency due to drugs; K70.31 Alcoholic cirrhosis of liver with ascites; Z66 Do not resuscitate; D64.81 Anemia due to antineoplastic chemotherapy; T45.1X5A Adverse effect of antineoplastic and immunosuppressive drugs, initial encounter; R41.0 Disorientation, unspecified; D69.6 Thrombocytopenia, unspecified; K21.9 Gastro-esophageal reflux disease without esophagitis; H91.90 Unspecified hearing loss, unspecified ear; E86.0 Dehydration; E66.9 Obesity, unspecified; T38.0X5A Adverse effect of glucocorticoids and synthetic analogues, initial encounter; Z85.46 Personal history of malignant neoplasm of prostate; Z90.49 Acquired absence of other specified parts of digestive tract; Z51.5 Encounter for palliative care; Z79.899 Other long term (current) drug therapy; Z68.29 Body mass index [BMI] 29.0-29.9, adult; Z79.52 Long term (current) use of systemic steroids
CPT/HCPCS: 36415; 70450; 71045; 80053; 82140; 83605 ×2; 83690; 83735; 84484; 85025; 85610; 86140; 87040 ×2; 93005; 99285; J7030 ×2; M0243; Q0243; U0002; 36410; 51701; 74176; 74176-26; 80048; 81001; 84145; 94762; 97116-GP; 97162-GP; 97530-GP; 99223; 99232; 99239; A9270-GY; J0692; J1940; J2270; J3370; J7040; J7050; J8540

== ENCOUNTER 2021-07-30 06:11 | Inpatient (IN) | payer MEDICARE, BC ==
[2021-07-30] MEDS ORDERED: Sodium Chloride 0.9% 10 ML Syringe FLUSH PRN (07:19)
--- NOTE | 2021-07-30 07:19 | EDM.PDOC ---
ED HPI GENERAL MEDICAL PROBLEM - General Chief Complaint: General Stated Complaint: [facility] Time Seen by Provider: 07/30/21 07:11 Source of Information: Reports: EMS, Family History Limitations: Reports: Altered Mental Status, Physical Impairment - History of Present Illness INITIAL COMMENTS - FREE TEXT/NARRATIVE: Patient is a 66-year-old gentleman with known history of alcohol abuse and pancreatic and colon cancer with brain mets who was just discharged from our hospital yesterday after family had refused care home placement. Patient returns today moaning with pain and family wanting him admitted for care home and hospice care in the future. Patient is unable to provide any history moaning here with I understand his yesterday he was able to communicate. Onset: Today Improves with: Reports: None Worsens with: Reports: None Associated Symptoms: Reports: Malaise, Weakness. Denies: Cough, Fever/Chills, Nausea/Vomiting - Related Data Allergies Allergy/AdvReac Type Severity Reaction Status Date / Time No Known Allergies Allergy Verified 07/30/21 06:18 Home Meds: Home Meds Morphine [Morphine 20 MG/ML Oral Soln] 5 mg PO Q1H PRN #20 ml 07/29/21 [Rx] Past Medical History - Past Health History Medical/Surgical History: Denies Medical/Surgical History HEENT History: Reports: Hard of Hearing Respiratory History: Reports: Pneumonia, Recurrent Gastrointestinal History: Reports: Cirrhosis, GERD Genitourinary History: Reports: Prostate Disorder Endocrine/Metabolic History: Reports: Obesity/BMI 30+ Hematologic History: Reports: Anemia Immunologic History: Reports: Immunosuppression Oncologic (Cancer) History: Reports: Colon, Non-Hodgkin's Lymphoma, Prostate Dermatologic History: Reports: Cellulitis - Infectious Disease History Infectious Disease History: Reports: Novel Coronavirus - Past Surgical History HEENT Surgical History: Reports: None GI Surgical History: Reports: Colon, Colonoscopy, EGD, Hernia, Abdominal Other GI Surgeries/Procedures: colon resecion Male Surgical History: Reports: None Endocrine Surgical History: Reports: None Musculoskeletal Surgical History: Reports: Other (See Below) Oncologic Surgical History: Reports: None, Other (See Below) Dermatological Surgical History: Reports: Other (See Below) Social & Family History - Family History Family Medical History: No Pertinent Family History - Tobacco Use Tobacco Use Status *Q: Never Tobacco User - Caffeine Use Caffeine Use: Reports: None - Living Situation & Occupation Living situation: Reports: , with Spouse Occupation: Retired ED ROS GENERAL - Review of Systems Review Of Systems: Unable To Obtain Reason Not Obtained: Altered mental status with brain mets. ED EXAM, GENERAL - Physical Exam Exam: See Below Exam Limited By: Altered Mental Status General Appearance: Obtunded, Mild Distress Neck: Supple, Non-Tender, Full Range of Motion Respiratory/Chest: No Respiratory Distress, Lungs Clear Cardiovascular: Regular Rate, Rhythm, No Edema, No Murmur GI/Abdominal: Soft, Non-Tender, No Organomegaly, No Mass. No: Distended, Guarding, Rigid, Rebound, Tender Back Exam: Normal Inspection. No: CVA Tenderness (L), CVA Tenderness (R) Extremities: No: Pedal Edema Neurological: Unresponsive Skin Exam: Warm, Dry, Ecchymosis Course - Vital Signs Text/Narrative:: Patient received IV fluids and some morphine. His lab work is unremarkable except a slightly elevated lactic acid at 2.4. Patient was discussed with child care director and is being admitted by her hospitalist service who is very familiar with him. Last Recorded V/S: Last Vital Signs Temp 98.1 F 07/30/21 06:16 Pulse 101 H 07/30/21 06:16 Resp 18 07/30/21 06:16 BP 128/74 07/30/21 06:16 Pulse Ox 98 07/30/21 06:16 - Orders/Labs/Meds Orders: Active Orders 24 hr Category Date Time Status Peripheral IV Care [RC] . DIRECTED Care 07/30/21 07:21 Active UA W/O MICROSCOPIC [URIN] Stat Lab 07/30/21 07:19 Ordered Sodium Chloride 0.9% [Saline Flush] Med 07/30/21 07:19 Active 10 ml FLUSH ASDIRECTED PRN Peripheral IV Insertion Adult [OM.PC] Routine Oth 07/30/21 07:19 Ordered Medication Orders Sodium Chloride (Sodium Chloride 0.9% 10 Ml Syringe) 10 ml FLUSH ASDIRECTED PRN PRN Reason: Keep Vein Open Last Admin: 07/30/21 07:26 Dose: 10 ml Documented by: LEXY Labs: Laboratory Tests 07/30/21 07/30/21 07/30/21 Range/Units 07:38 07:38 07:38 WBC 10.75 H (4.23-9.07) K/mm3 RBC 3.75 L (4.63-6.08) M/mm3 Hgb 11.8 L (13.7-17.5) gm/dl Hct 35.4 L (40.1-51.0) % MCV 94.4 H (79.0-92.2) fl MCH 31.5 (25.7-32.2) pg MCHC 33.3 (32.2-35.5) g/dl RDW Std Deviation 64.9 H (35.1-43.9) fL Plt Count 58 L (163-337) K/mm3 MPV 11.8 (9.4-12.3) fl Neutrophils % (Manual) 87 H (40-60) % Band Neutrophils % 0 (0-10) % Lymphocytes % (Manual) 4 L (20-40) % Atypical Lymphs % 0 % Monocytes % (Manual) 9 (2-10) % Eosinophils % (Manual) 0 L (0.8-7.0) % Basophils % (Manual) 0 L (0.2-1.2) Nucleated RBCs 1.0 % Toxic Granulation 2+ moderate Platelet Estimate Decreased Plt Morphology Comment Normal Polychromasia 2+ moderate Anisocytosis 3+ marked Tear Drop Cells Few Ovalocytes Few Acanthocytes (Spur) Few RBC Morph Comment Not Reportable Sodium 143 (136-145) mEq/L Potassium 4.9 (3.5-5.1) mEq/L Chloride 106 (98-107) mEq/L Carbon Dioxide 29 (21-32) mEq/L Anion Gap 12.9 (5-15) BUN 33 H (7-18) mg/dL Creatinine 1.0 (0.7-1.3) mg/dL Est Cr Clr Drug Dosing TNP Estimated GFR (MDRD) > 60 (>60) mL/min BUN/Creatinine Ratio 33.0 H (14-18) Glucose 188 H (70-99) mg/dL Lactic Acid 2.5 H* (0.4-2.0) mmol/L Calcium 8.9 (8.5-10.1) mg/dL Total Bilirubin 5.0 H (0.2-1.0) mg/dL AST 23 (15-37) U/L ALT 62 (16-63) U/L Alkaline Phosphatase 104 (46-116) U/L Troponin I 0.025 (0.00-0.056) ng/mL Total Protein 5.8 L (6.4-8.2) g/dl Albumin 2.9 L (3.4-5.0) g/dl Globulin 2.9 gm/dL Albumin/Globulin Ratio 1.0 (1-2) Meds: Medications Generic Name Dose Route Start Last Admin Trade Name Roberta PRN Reason Stop Dose Admin Sodium Chloride 10 ml 07/30/21 07:19 07/30/21 07:26 Sodium Chloride 0.9% 10 Ml Syringe FLUSH 10 ml ASDIRECTED PRN Administration Keep Vein Open Discontinued Medications Generic Name Dose Route Start Last Admin Trade Name Roberta PRN Reason Stop Dose Admin Morphine Sulfate 4 mg 07/30/21 09:04 07/30/21 09:08 Morphine 4 Mg/Ml Syringe IVPUSH 07/30/21 09:05 4 mg ONETIME ONE Administration Morphine Sulfate Confirm 07/30/21 09:05 07/30/21 09:12 Morphine 4 Mg/Ml Syringe Administered 07/30/21 09:06 Not Given Dose 4 mg .ROUTE .STK-MED ONE Departure - Departure Time of Disposition: 10:09 Disposition: Admitted As Inpatient 64 Clinical Impression: Altered mental status, Metabolic brain disease, Pancreatic cancer, Adult failure to thrive - Discharge Information Sepsis Event Note (ED) - Evaluation Sepsis Screening Result: No Definite Risk - Focused Exam Vital Signs: Vital Signs Temp Pulse Resp BP Pulse Ox 07/30/21 06:16 98.1 F 101 H 18 128/74 98 - My Orders Last 24 Hours: My Active Orders 07/30/21 07:19 UA W/O MICROSCOPIC [URIN] Stat Sodium Chloride 0.9% [Saline Flush] 10 ml FLUSH ASDIRECTED PRN Peripheral IV Insertion Adult [OM.PC] Routine 07/30/21 07:21 Peripheral IV Care [RC] . DIRECTED - Assessment/Plan Last 24 Hours: My Active Orders 07/30/21 07:19 UA W/O MICROSCOPIC [URIN] Stat Sodium Chloride 0.9% [Saline Flush] 10 ml FLUSH ASDIRECTED PRN Peripheral IV Insertion Adult [OM.PC] Routine 07/30/21 07:21 Peripheral IV Care [RC] . DIRECTED
[2021-07-30] MEDS ORDERED: Morphine 4 MG/ML Syringe IVPUSH ONE ×2 (09:04→10:13)
[2021-07-30] MEDS ORDERED: Morphine 4 MG/ML Syringe ONE (09:05)
--- NOTE | 2021-07-30 09:31 | CR ---
Chest: Portable view of the chest was obtained in supine projection. Comparison: Prior chest x-ray of 07/22/21. Heart has a left ventricular configuration. Upper mediastinum is within normal limits for portable technique. Lungs are clear with no acute parenchymal change. Bony structures show nothing acute. Impression: 1. Findings as noted above. 2. Nothing acute is appreciated on supine chest x-ray. Diagnostic code #2
[2021-07-30] MEDS ORDERED: Morphine 2 MG/ML SYRINGE IVPUSH PRN (10:18)
[2021-07-30] MEDS ORDERED: Acetaminophen 650 MG Supp RECTAL PRN (10:18)
[2021-07-30] MEDS ORDERED: LORazepam 0.5 MG Tab PO PRN (10:24)
--- NOTE | 2021-07-30 10:27 | PCM.HP.2 ---
H&P History of Present Illness - General Date of Service: 07/30/21 Admit Problem/Dx: Admission Diagnosis/Problem Admission Diagnosis/Problem Altered mental status Source of Information: Long-Term Records, Old Records, Provider, RN, RN Notes Reviewed, Significant Other History Limitations: Reports: Altered Mental Status - History of Present Illness Initial Comments - Free Text/Narative: 84-year-old female with a known history of alcoholic cirrhosis along with non-Hodgkin's lymphoma, prostate cancer, metastasis to the brain, ascites, and hyperbilirubinemia who was discharged from our hospital yesterday and returns today (07/30/2021) via [facility] with concerns over pain. Plan was to discharge the patient home on hospice however hospice is unavailable due to staffing issues. Patient was sent home on oral morphine and per the family since arriving home patient has rapidly declined. History is obtained from the patient's as he is unresponsive, moaning, and thrashing around on the bed. In the ED temp is 98.1. Pulse 101. Respirations 18. Blood pressure 128/74. Pulse ox is 98%. Labs are obtained showing a mild leukocytosis of 10.75. Hemoglobin is 11.8. Platelet 58,000. Neutrophils are 87% with no bandemia. 2+ toxic granulation. Sodium 143. Potassium 4.9. Chloride 106. Carbon dioxide 29. Anion gap is 12.9. BUN is 33. Creatinine 1.0. GFR greater than 60. Glucose is 188. Lactic acid is 2.5. Bilirubin 5.0. AST is 23, ALT 62, alkaline phosphatase 144. Troponin is 0.025. Albumin is 2.9. Patient is given morphine. Of note patient was given IV antibiotics empirically during prior admission. Discussion ensues with the family as the patient has recently underwent 5 rounds of radiation due to his brain metastasis at the [facility] in [facility]. At that time hospice was recommended but the family refused. Patient has not been eating or drinking. He has very poor prognosis given his multiple comorbidities. At his last visit he was noted to have significantly worsening ascites. Because of this family agrees to comfort care. They state he cannot go back home as he is too much for them to care for. We will therefore admit the patient here comfort care status and begin planning for placement. PCP is Dr. Marcelino. - Related Data Allergies/Adverse Reactions: Allergies Allergy/AdvReac Type Severity Reaction Status Date / Time No Known Allergies Allergy Verified 07/30/21 06:18 Home Medications: Home Meds Morphine [Morphine 20 MG/ML Oral Soln] 5 mg PO Q1H PRN #20 ml 07/29/21 [Rx] Past Medical History - Past Health History Medical/Surgical History: Denies Medical/Surgical History HEENT History: Reports: Hard of Hearing Respiratory History: Reports: Pneumonia, Recurrent Gastrointestinal History: Reports: Cirrhosis, GERD Genitourinary History: Reports: Prostate Disorder Endocrine/Metabolic History: Reports: Obesity/BMI 30+ Hematologic History: Reports: Anemia Immunologic History: Reports: Immunosuppression Oncologic (Cancer) History: Reports: Colon, Non-Hodgkin's Lymphoma, Prostate Dermatologic History: Reports: Cellulitis - Infectious Disease History Infectious Disease History: Reports: Novel Coronavirus - Past Surgical History HEENT Surgical History: Reports: None GI Surgical History: Reports: Colon, Colonoscopy, EGD, Hernia, Abdominal Other GI Surgeries/Procedures: colon resecion Male Surgical History: Reports: None Endocrine Surgical History: Reports: None Musculoskeletal Surgical History: Reports: Other (See Below) Oncologic Surgical History: Reports: None, Other (See Below) Dermatological Surgical History: Reports: Other (See Below) Social & Family History - Family History Family Medical History: No Pertinent Family History - Tobacco Use Tobacco Use Status *Q: Never Tobacco User - Caffeine Use Caffeine Use: Reports: None - Living Situation & Occupation Living situation: Reports: , with Spouse Occupation: Retired H&P Review of Systems - Review of Systems: Review Of Systems: Unable To Obtain Reason Not Obtained: Patient unresponsive Free Text/Narrative: Patient's is in room. Denies any fever but states since patient arrived home yesterday he has been mostly unresponsive and moaning. She believes he is in pain. Patient does not make any attempt to respond to questioning. She states he has not had anything to eat or drink since arriving home. Exam - Exam Exam: See Below - Vital Signs Vital Signs: Last Vital Signs Temp 98.1 F 07/30/21 06:16 Pulse 101 H 07/30/21 06:16 Resp 18 07/30/21 06:16 BP 128/74 07/30/21 06:16 Pulse Ox 98 07/30/21 06:16 - Exam Quality Assessment: No: Supplemental Oxygen, Urinary Catheter, DVT Prophylaxis (Comfort care) General: Alert (Eyes open. Pupils reactive and equal. Patient does not follow movement with eyes.), Moderate Distress (Appears uncomfortable writhing around on cot). No: Cooperative HEENT: Conjunctiva Clear, PERRLA. No: Mucosa Moist & [place] (Dry) Neck: Supple, Trachea Midline Lungs: Clear to Auscultation, Normal Respiratory Effort Cardiovascular: Regular Rhythm, Tachycardia GI/Abdominal Exam: Normal Bowel Sounds, Soft, Distended (Mildly), Hepatomegaly, Splenomegaly. No: Guarding, Rigid (Male) Exam: Deferred Rectal (Males) Exam: Deferred Back Exam: Normal Inspection Extremities: Normal Inspection, Normal Range of Motion, Non-Tender, No Pedal Edema, Normal Capillary Refill Skin: Warm, Dry, Intact, Ecchymosis (Scattered) Neurological: Other (Unable to obtain neurological status as patient is unresponsive) - Patient Data Lab Results Last 24 hrs: Laboratory Results - last 24 hr 07/30/21 07/30/21 07/30/21 Range/Units 07:38 07:38 07:38 WBC 10.75 H (4.23-9.07) K/mm3 RBC 3.75 L (4.63-6.08) M/mm3 Hgb 11.8 L (13.7-17.5) gm/dl Hct 35.4 L (40.1-51.0) % MCV 94.4 H (79.0-92.2) fl MCH 31.5 (25.7-32.2) pg MCHC 33.3 (32.2-35.5) g/dl RDW Std Deviation 64.9 H (35.1-43.9) fL Plt Count 58 L (163-337) K/mm3 MPV 11.8 (9.4-12.3) fl Neutrophils % (Manual) 87 H (40-60) % Band Neutrophils % 0 (0-10) % Lymphocytes % (Manual) 4 L (20-40) % Atypical Lymphs % 0 % Monocytes % (Manual) 9 (2-10) % Eosinophils % (Manual) 0 L (0.8-7.0) % Basophils % (Manual) 0 L (0.2-1.2) Nucleated RBCs 1.0 % Toxic Granulation 2+ moderate Platelet Estimate Decreased Plt Morphology Comment Normal Polychromasia 2+ moderate Anisocytosis 3+ marked Tear Drop Cells Few Ovalocytes Few Acanthocytes (Spur) Few RBC Morph Comment Not Reportable Sodium 143 (136-145) mEq/L Potassium 4.9 (3.5-5.1) mEq/L Chloride 106 (98-107) mEq/L Carbon Dioxide 29 (21-32) mEq/L Anion Gap 12.9 (5-15) BUN 33 H (7-18) mg/dL Creatinine 1.0 (0.7-1.3) mg/dL Est Cr Clr Drug Dosing TNP Estimated GFR (MDRD) > 60 (>60) mL/min BUN/Creatinine Ratio 33.0 H (14-18) Glucose 188 H (70-99) mg/dL Lactic Acid 2.5 H* (0.4-2.0) mmol/L Calcium 8.9 (8.5-10.1) mg/dL Total Bilirubin 5.0 H (0.2-1.0) mg/dL AST 23 (15-37) U/L ALT 62 (16-63) U/L Alkaline Phosphatase 104 (46-116) U/L Troponin I 0.025 (0.00-0.056) ng/mL Total Protein 5.8 L (6.4-8.2) g/dl Albumin 2.9 L (3.4-5.0) g/dl Globulin 2.9 gm/dL Albumin/Globulin Ratio 1.0 (1-2) Result Diagrams: 07/30/21 07:38 07/30/21 07:38 Sepsis Event Note - Evaluation Sepsis Screening Result: No Definite Risk - Focused Exam Vital Signs: Vital Signs Temp Pulse Resp BP Pulse Ox 07/30/21 06:16 98.1 F 101 H 18 128/74 98 - Problem List (1) Altered mental status SNOMED Code(s): 427455767 ICD Code: R41.82 - ALTERED MENTAL STATUS, UNSPECIFIED Status: Acute Priority: High Current Visit: Yes Qualifiers: Altered mental status type: unspecified Qualified Code(s): R41.82 - Altered mental status, unspecified (2) Anemia SNOMED Code(s): 489132974 ICD Code: D64.9 - ANEMIA, UNSPECIFIED Status: Chronic Priority: Medium Current Visit: No Qualifiers: Anemia type: other cause Other causes of anemia: antineoplastic chemotherapy Qualified Code(s): D64.81 - Anemia due to antineoplastic chemotherapy; T45.1X5A - Adverse effect of antineoplastic and immunosuppressive drugs, initial encounter (3) Ascites SNOMED Code(s): 308925819 ICD Code: R18.8 - OTHER ASCITES Status: Chronic Priority: High Current Visit: No Qualifiers: Ascites type: due to alcoholic cirrhosis Qualified Code(s): K70.31 - Alcoholic cirrhosis of liver with ascites (4) Brain tumor SNOMED Code(s): 575389809 ICD Code: D49.6 - NEOPLASM OF UNSPECIFIED BEHAVIOR OF BRAIN Status: Chronic Priority: High Current Visit: Yes (5) Diffuse large B cell lymphoma SNOMED Code(s): 721398181, 227092122 ICD Code: C83.30 - DIFFUSE LARGE B-CELL LYMPHOMA, UNSPECIFIED SITE Status: Chronic Priority: High Current Visit: Yes Qualifiers: Lymphoma site: multiple regions Qualified Code(s): C83.38 - Diffuse large B-cell lymphoma, lymph nodes of multiple sites (6) GERD (gastroesophageal reflux disease) SNOMED Code(s): 474081635 ICD Code: K21.9 - GASTRO-ESOPHAGEAL REFLUX DISEASE WITHOUT ESOPHAGITIS Status: Chronic Priority: Low Current Visit: No Qualifiers: Esophagitis presence: esophagitis presence not specified Qualified Code(s): K21.9 - Gastro-esophageal reflux disease without esophagitis (7) Generalized weakness SNOMED Code(s): 48619537 ICD Code: R53.1 - WEAKNESS Status: Acute Priority: High Current Visit: Yes (8) Hepatic encephalopathy SNOMED Code(s): 32933105 ICD Code: K72.90 - HEPATIC FAILURE, UNSPECIFIED WITHOUT COMA Status: Acute Priority: High Current Visit: Yes (9) History of colon resection SNOMED Code(s): 551114973 ICD Code: Z90.49 - ACQUIRED ABSENCE OF OTHER SPECIFIED PARTS OF DIGESTIVE TRACT Status: Chronic Priority: Low Current Visit: No (10) History of prostate cancer SNOMED Code(s): 682802792 ICD Code: Z85.46 - PERSONAL HISTORY OF MALIGNANT NEOPLASM OF PROSTATE Status: Chronic Priority: Low Current Visit: No (11) Hyperammonemia SNOMED Code(s): 4507440 ICD Code: E72.20 - DISORDER OF UREA CYCLE METABOLISM, UNSPECIFIED Status: Chronic Priority: Medium Current Visit: No (12) Hyperbilirubinemia SNOMED Code(s): 30393070 ICD Code: E80.6 - OTHER DISORDERS OF BILIRUBIN METABOLISM Status: Chronic Priority: Medium Current Visit: Yes (13) Immunosuppression due to chronic steroid use SNOMED Code(s): 739741721 ICD Code: D84.821 - IMMUNODEFICIENCY DUE TO DRUGS; T38.0X5A - ADVERSE EFFECT OF GLUCOCORT/SYNTH ANALOG, INIT; 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) USE OF SYSTEMIC STEROIDS Status: Chronic Priority: Medium Current Visit: Yes (14) Aspergillosis SNOMED Code(s): 38247341 ICD Code: B44.9 - ASPERGILLOSIS, UNSPECIFIED Status: Chronic Priority: Medium Current Visit: No (15) Colon cancer SNOMED Code(s): 863174440 ICD Code: C18.9 - MALIGNANT NEOPLASM OF COLON, UNSPECIFIED Status: Chronic Priority: Medium Current Visit: No Qualifiers: Colon location: unspecified part of colon Qualified Code(s): C18.9 - Malignant neoplasm of colon, unspecified (16) Liver cirrhosis, alcoholic SNOMED Code(s): 871253927 ICD Code: K70.30 - ALCOHOLIC CIRRHOSIS OF LIVER WITHOUT ASCITES Status: Chronic Priority: Medium Current Visit: No Qualifiers: Ascites presence: with ascites Qualified Code(s): K70.31 - Alcoholic cirr hosis of liver with ascites (17) Thrombocytopenia SNOMED Code(s): 045118310 ICD Code: D69.6 - THROMBOCYTOPENIA, UNSPECIFIED Status: Chronic Priority: High Current Visit: No (18) Dehydration SNOMED Code(s): 81158536 ICD Code: E86.0 - DEHYDRATION Status: Acute Priority: High Current Visit: No (19) Lactic acidosis SNOMED Code(s): 21071262 ICD Code: E87.2 - ACIDOSIS Status: Acute Priority: High Current Visit: No (20) End of life care SNOMED Code(s): 174530980, 523986021 ICD Code: Z51.5 - ENCOUNTER FOR PALLIATIVE CARE Status: Acute Priority: High Current Visit: Yes (21) History of COVID-19 SNOMED Code(s): 520784935939455517, 348180180689601485 ICD Code: Z86.16 - PERSONAL HISTORY OF COVID-19 Status: Chronic Priority: Low Current Visit: No Problem List Initiated/Reviewed/Updated: Yes Orders Last 24hrs: Active Orders 24 hr Category Date Time Status Patient Status [ADT] Routine ADT 07/30/21 10:19 Active Bedrest [RC] ASDIRECTED Care 07/30/21 10:24 Active Peripheral IV Care [RC] . DIRECTED Care 07/30/21 07:21 Active Pulse Oximetry [RC] PRN Care 07/30/21 10:23 Active Vital Signs [RC] QSHIFT Care 07/30/21 10:18 Active Consult to Case Management/In Home Nanny [CONS] Cons 07/30/21 10:18 Active Routine Consult to Spiritual Care [CONS] Routine Cons 07/30/21 10:18 Active Regular Diet [DIET] Diet 07/30/21 Lunch Active UA W/O MICROSCOPIC [URIN] Stat Lab 07/30/21 07:19 Ordered Acetaminophen [Tylenol] Med 07/30/21 10:18 Active 650 mg RECTAL Q4H PRN LORazepam [Ativan] Med 07/30/21 10:24 Active 0.5 mg PO Q6H PRN Morphine Med 07/30/21 10:18 Active 3 mg IVPUSH Q2H PRN Sodium Chloride 0.9% [Saline Flush] Med 07/30/21 07:19 Active 10 ml FLUSH ASDIRECTED PRN Peripheral IV Insertion Adult [OM.PC] Routine Oth 07/30/21 07:19 Ordered Resuscitation Status Routine Resus Stat 07/30/21 10:18 Ordered Medication Orders Acetaminophen (Acetaminophen 650 Mg Supp) 650 mg RECTAL Q4H PRN PRN Reason: Pain (mild 1-3) Lorazepam (Lorazepam 0.5 Mg Tab) 0.5 mg PO Q6H PRN PRN Reason: Anxiety Morphine Sulfate (Morphine 2 Mg/Ml Syringe) 3 mg IVPUSH Q2H PRN PRN Reason: Pain (severe 7-10) Stop: 07/31/21 10:23 Sodium Chloride (Sodium Chloride 0.9% 10 Ml Syringe) 10 ml FLUSH ASDIRECTED PRN PRN Reason: Keep Vein Open Last Admin: 07/30/21 07:26 Dose: 10 ml Documented by: LEXY Assessment/Plan Comment:: End of life care Altered mental status * Morphine as needed for pain * Ativan as needed for anxiety * As needed Scopolamine patch for excessive secretions * As needed atropine drops sublingual for excessive secretions * Spiritual care consultation * As needed rectal Tylenol for pain/fever * Bedrest * No lab draws, imaging, IV fluids * Vital signs every shift * Case management/social work for placement * Regular diet * Hold home medications Inactive: Anemia Ascites Brain tumor Diffuse large B cell lymphoma GERD (gastroesophageal reflux disease) Generalized weakness Hepatic encephalopathy History of colon resection History of prostate cancer Hyperammonemia Hyperbilirubinemia 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 Marcelino DVT prophylaxis: Not indicated - comfort care Social: Resides at home with . Multiple family members in the area. Will r equire placement Disposition: Patient admitted inpatient for end-of-life care. Social work working on placement unknown length of stay pending placement. - Mortality Measure Prognosis:: Poor (End-of-life care)
[2021-07-30] MEDS ORDERED: Scopolamine 1.5 MG Transdermal Patch TRDERM PRN (13:36)
[2021-07-30] MEDS ORDERED: Atropine 1% Ophth Soln 5 ML BOTTLE SL PRN (13:36)
[2021-07-30] MEDS ORDERED: LORazepam 2 MG/ML SDV IVPUSH ONE (14:31)
--- NOTE | 2021-07-30 16:08 | MR ---
MRI brain Technique: T1 sagittal; T2, T2 FLAIR, T1 and diffusion axial; T1 FLAIR coronal images were obtained. Comparison: Prior head CT study of 07/22/21 and previous MRI brain of 08/14/20. Findings: Ventricles along with basal cisterns and sulci over the convexities are mildly prominent. Normal signal void is seen within the major cerebral arteries within the skull base. Scattered areas of increased signal are seen within the periventricular and subcortical white matter. These findings may represent diffuse small vessel ischemic demyelination change. These findings have progressed from prior MRI. There is an area of increased signal on the T2 sequence correlating to the recent head CT study within the left parietal region. This finding is much less prominent on the FLAIR sequence and is suspicious for possible mass. Diffusion-weighted images were obtained which show abnormal diffusion within the left parietal region with a central area of non-diffusion. Additional diffusion abnormality is seen within the left basal ganglia. Impression: 1. Findings suspicious for fairly acute infarct within the left basal ganglia. 2. Abnormal diffusion within the left parietal region with central area of no abnormal diffusion. This finding correlates to the CT finding. Finding is suspicious for possible mass. 3. Diffuse increased signal within the periventricular and subcortical white matter possibly due to diffuse ischemic change which is an interval change from prior MRI. 4. Contrast would be helpful to make sure the mass suspected within the left parietal region is neoplastic. In addition, contrast would help to confirm the areas of increased signal within the subcortical and periventricular white matter represent small vessel ischemic demyelination change and do not represent other abnormality. Diagnostic code #3
[2021-07-30] MEDS: Morphine 4 MG/ML Syringe IVPUSH PRN ×2 (20:55→23:21)
[2021-07-31] MEDS: Morphine 4 MG/ML Syringe IVPUSH PRN (05:11)
--- NOTE | 2021-07-31 06:52 | PCM.PN ---
- General Info Date of Service: 07/31/21 Admission Dx/Problem (Free Text): Admission Diagnosis/Problem Admission Diagnosis/Problem Altered mental status Functional Status: Reports: Urinating. Denies: Pain Controlled, Tolerating Diet, Ambulating, New Symptoms - Review of Systems Systems Review Comment:: Unable to obtain ROS as patient is obtunded - Patient Data Vitals - Most Recent: Last Vital Signs Temp 97.7 F 07/30/21 19:44 Pulse 81 07/30/21 19:44 Resp 10 L 07/30/21 19:44 BP 143/93 H 07/30/21 19:44 Pulse Ox 96 07/30/21 19:44 Weight - Most Recent: 154 lb 4.8 oz I&O - Last 24 Hours: Intake & Output 07/30/21 07/30/21 07/31/21 14:59 22:59 06:59 Output Total 550 Balance -550 Lab Results Last 24 Hours: Laboratory Results - last 24 hr 07/30/21 07/30/21 07/30/21 Range/Units 07:38 07:38 07:38 WBC 10.75 H (4.23-9.07) K/mm3 RBC 3.75 L (4.63-6.08) M/mm3 Hgb 11.8 L (13.7-17.5) gm/dl Hct 35.4 L (40.1-51.0) % MCV 94.4 H (79.0-92.2) fl MCH 31.5 (25.7-32.2) pg MCHC 33.3 (32.2-35.5) g/dl RDW Std Deviation 64.9 H (35.1-43.9) fL Plt Count 58 L (163-337) K/mm3 MPV 11.8 (9.4-12.3) fl Neutrophils % (Manual) 87 H (40-60) % Band Neutrophils % 0 (0-10) % Lymphocytes % (Manual) 4 L (20-40) % Atypical Lymphs % 0 % Monocytes % (Manual) 9 (2-10) % Eosinophils % (Manual) 0 L (0.8-7.0) % Basophils % (Manual) 0 L (0.2-1.2) Nucleated RBCs 1.0 % Toxic Granulation 2+ moderate Platelet Estimate Decreased Plt Morphology Comment Normal Polychromasia 2+ moderate Anisocytosis 3+ marked Tear Drop Cells Few Ovalocytes Few Acanthocytes (Spur) Few RBC Morph Comment Not Reportable Sodium 143 (136-145) mEq/L Potassium 4.9 (3.5-5.1) mEq/L Chloride 106 (98-107) mEq/L Carbon Dioxide 29 (21-32) mEq/L Anion Gap 12.9 (5-15) BUN 33 H (7-18) mg/dL Creatinine 1.0 (0.7-1.3) mg/dL Est Cr Clr Drug Dosing TNP Estimated GFR (MDRD) > 60 (>60) mL/min BUN/Creatinine Ratio 33.0 H (14-18) Glucose 188 H (70-99) mg/dL Lactic Acid 2.5 H* (0.4-2.0) mmol/L Calcium 8.9 (8.5-10.1) mg/dL Total Bilirubin 5.0 H (0.2-1.0) mg/dL AST 23 (15-37) U/L ALT 62 (16-63) U/L Alkaline Phosphatase 104 (46-116) U/L Troponin I 0.025 (0.00-0.056) ng/mL Total Protein 5.8 L (6.4-8.2) g/dl Albumin 2.9 L (3.4-5.0) g/dl Globulin 2.9 gm/dL Albumin/Globulin Ratio 1.0 (1-2) Med Orders - Current: Current Medications Acetaminophen (Acetaminophen 650 Mg Supp) 650 mg RECTAL Q4H PRN PRN Reason: Pain (mild 1-3) Atropine Sulfate (Atropine 1% Ophth Soln 5 Ml Bottle) 0 ml SL Q2H PRN PRN Reason: Excessive secretions Lorazepam (Lorazepam 0.5 Mg Tab) 0.5 mg PO Q6H PRN PRN Reason: Anxiety Morphine Sulfate (Morphine 4 Mg/Ml Syringe) 4 mg IVPUSH Q2H PRN PRN Reason: Pain (severe 7-10) Stop: 07/31/21 10:23 Last Admin: 07/31/21 05:11 Dose: 4 mg Documented by: Scopolamine (Scopolamine 1.5 Mg Transdermal Patch) 1.5 mg TRDERM Q72H PRN PRN Reason: Excessive secretions Sodium Chloride (Sodium Chloride 0.9% 10 Ml Syringe) 10 ml FLUSH ASDIRECTED PRN PRN Reason: Keep Vein Open Last Admin: 07/30/21 07:26 Dose: 10 ml Documented by: Discontinued Medications Lorazepam (Lorazepam 2 Mg/Ml Sdv) 1 mg IVPUSH ONETIME ONE Stop: 07/30/21 14:32 Last Admin: 07/30/21 15:04 Dose: 1 mg Documented by: Morphine Sulfate (Morphine 4 Mg/Ml Syringe) 4 mg IVPUSH ONETIME ONE Stop: 07/30/21 09:05 Last Admin: 07/30/21 09:08 Dose: 4 mg Documented by: Morphine Sulfate (Morphine 4 Mg/Ml Syringe) Confirm Administered Dose 4 mg .ROUTE .STK-MED ONE Stop: 07/30/21 09:06 Last Admin: 07/30/21 09:12 Dose: Not Given Documented by: Morphine Sulfate (Morphine 4 Mg/Ml Syringe) 4 mg IVPUSH ONETIME ONE Stop: 07/30/21 10:14 Last Admin: 07/30/21 10:19 Dose: 4 mg Documented by: Morphine Sulfate (Morphine 2 Mg/Ml Syringe) 3 mg IVPUSH Q2H PRN PRN Reason: Pain (severe 7-10) Stop: 07/31/21 10:23 Last Admin: 07/30/21 12:26 Dose: 3 mg Documented by: - Exam Quality Assessment: Supplemental Oxygen (2L), Urine Catheter. No: Central Line/PICC, DVT Prophylaxis (Comfort cares) Urinary Catheter Total Time: 0Days 1Hours General: Obtunded. No: Alert HEENT: Pupils Equal, Pupils Reactive Neck: Supple Lungs: Clear to Auscultation. No: Normal Respiratory Effort (Occasional apneic spells) Cardiovascular: Regular Rate, Regular Rhythm GI/Abdominal Exam: Normal Bowel Sounds, Soft, Non-Tender, Distended, Hepatomegaly, Splenomegaly (Male) Exam: Deferred Extremities: Normal Inspection, Non-Tender, No Pedal Edema Skin: Warm, Dry, Intact - Patient Data Lab Results Last 24 hrs: Laboratory Results - last 24 hr 07/30/21 07/30/21 07/30/21 Range/Units 07:38 07:38 07:38 WBC 10.75 H (4.23-9.07) K/mm3 RBC 3.75 L (4.63-6.08) M/mm3 Hgb 11.8 L (13.7-17.5) gm/dl Hct 35.4 L (40.1-51.0) % MCV 94.4 H (79.0-92.2) fl MCH 31.5 (25.7-32.2) pg MCHC 33.3 (32.2-35.5) g/dl RDW Std Deviation 64.9 H (35.1-43.9) fL Plt Count 58 L (163-337) K/mm3 MPV 11.8 (9.4-12.3) fl Neutrophils % (Manual) 87 H (40-60) % Band Neutrophils % 0 (0-10) % Lymphocytes % (Manual) 4 L (20-40) % Atypical Lymphs % 0 % Monocytes % (Manual) 9 (2-10) % Eosinophils % (Manual) 0 L (0.8-7.0) % Basophils % (Manual) 0 L (0.2-1.2) Nucleated RBCs 1.0 % Toxic Granulation 2+ moderate Platelet Estimate Decreased Plt Morphology Comment Normal Polychromasia 2+ moderate Anisocytosis 3+ marked Tear Drop Cells Few Ovalocytes Few Acanthocytes (Spur) Few RBC Morph Comment Not Reportable Sodium 143 (136-145) mEq/L Potassium 4.9 (3.5-5.1) mEq/L Chloride 106 (98-107) mEq/L Carbon Dioxide 29 (21-32) mEq/L Anion Gap 12.9 (5-15) BUN 33 H (7-18) mg/dL Creatinine 1.0 (0.7-1.3) mg/dL Est Cr Clr Drug Dosing TNP Estimated GFR (MDRD) > 60 (>60) mL/min BUN/Creatinine Ratio 33.0 H (14-18) Glucose 188 H (70-99) mg/dL Lactic Acid 2.5 H* (0.4-2.0) mmol/L Calcium 8.9 (8.5-10.1) mg/dL Total Bilirubin 5.0 H (0.2-1.0) mg/dL AST 23 (15-37) U/L ALT 62 (16-63) U/L Alkaline Phosphatase 104 (46-116) U/L Troponin I 0.025 (0.00-0.056) ng/mL Total Protein 5.8 L (6.4-8.2) g/dl Albumin 2.9 L (3.4-5.0) g/dl Globulin 2.9 gm/dL Albumin/Globulin Ratio 1.0 (1-2) Result Diagrams: 07/30/21 07:38 07/30/21 07:38 Sepsis Event Note - Evaluation Sepsis Screening Result: No Definite Risk - Focused Exam Vital Signs: Vital Signs Temp Pulse Resp BP Pulse Ox 07/30/21 19:44 97.7 F 81 10 L 143/93 H 96 - Problem List & Annotations (1) Altered mental status SNOMED Code(s): 377290369 Code(s): R41.82 - ALTERED MENTAL STATUS, UNSPECIFIED Status: Acute Priority: High Current Visit: Yes Qualifiers: Altered mental status type: unspecified Qualified Code(s): R41.82 - Altered mental status, unspecified (2) Anemia SNOMED Code(s): 922930152 Code(s): D64.9 - ANEMIA, UNSPECIFIED Status: Chronic Priority: [facility] C urren Visit: No Qualifiers: Anemia type: other cause Other causes of anemia: antineoplastic chemotherapy Qualified Code(s): D64.81 - Anemia due to antineoplastic chemotherapy; T45.1X5A - Adverse effect of antineoplastic and immunosuppressive drugs, initial encounter (3) Ascites SNOMED Code(s): 219922306 Code(s): R18.8 - OTHER ASCITES Status: Chronic Priority: High Current Visit: No Qualifiers: Ascites type: due to alcoholic cirrhosis Qualified Code(s): K70.31 - Alcoholic cirrhosis of liver with ascites (4) Brain tumor SNOMED Code(s): 611670601 Code(s): D49.6 - NEOPLASM OF UNSPECIFIED BEHAVIOR OF BRAIN Status: Chronic Priority: High Current Visit: Yes (5) Diffuse large B cell lymphoma SNOMED Code(s): 719348011, 267881014 Code(s): C83.30 - DIFFUSE LARGE B-CELL LYMPHOMA, UNSPECIFIED SITE Status: Chronic Priority: High Current Visit: Yes Qualifiers: Lymphoma site: multiple regions Qualified Code(s): C83.38 - Diffuse large B-cell lymphoma, lymph nodes of multiple sites (6) GERD (gastroesophageal reflux disease) SNOMED Code(s): 881721383 Code(s): K21.9 - GASTRO-ESOPHAGEAL REFLUX DISEASE WITHOUT ESOPHAGITIS Status: Chronic Priority: Low Current Visit: No Qualifiers: Esophagitis presence: esophagitis presence not specified Qualified Code(s): K21.9 - Gastro-esophageal reflux disease without esophagitis (7) Generalized weakness SNOMED Code(s): 31275527 Code(s): R53.1 - WEAKNESS Status: Acute Priority: High Current Visit: Yes (8) Hepatic encephalopathy SNOMED Code(s): 77806411 Code(s): K72.90 - HEPATIC FAILURE, UNSPECIFIED WITHOUT COMA Status: Acute Priority: High Current Visit: Yes (9) History of colon resection SNOMED Code(s): 730363389 Code(s): Z90.49 - ACQUIRED ABSENCE OF OTHER SPECIFIED PARTS OF DIGESTIVE TRACT Status: Chronic Priority: Low Current Visit: No (10) History of prostate cancer SNOMED Code(s): 966645583 Code(s): Z85.46 - PERSONAL HISTORY OF MALIGNANT NEOPLASM OF PROSTATE Status: Chronic Priority: Low Current Visit: No (11) Hyperammonemia SNOMED Code(s): 1191929 Code(s): E72.20 - DISORDER OF UREA CYCLE METABOLISM, UNSPECIFIED Status: Chronic Priority: Medium Current Visit: No (12) Hyperbilirubinemia SNOMED Code(s): 34501706 Code(s): E80.6 - OTHER DISORDERS OF BILIRUBIN METABOLISM Status: Chronic Priority: Medium Current Visit: Yes (13) Immunosuppression due to chronic steroid use SNOMED Code(s): 003277601 Code(s): D84.821 - IMMUNODEFICIENCY DUE TO DRUGS; T38.0X5A - ADVERSE EFFECT OF GLUCOCORT/SYNTH ANALOG, INIT; Z79.52 - HALF-WAY (CURRENT) USE OF SYSTEMIC STEROIDS Status: Chronic Priority: Medium Current Visit: Yes (14) Aspergillosis SNOMED Code(s): 01985570 Code(s): B44.9 - ASPERGILLOSIS, UNSPECIFIED Status: Chronic Priority: Medium Current Visit: No (15) Colon cancer SNOMED Code(s): 588943718 Code(s): C18.9 - MALIGNANT NEOPLASM OF COLON, UNSPECIFIED Status: Chronic Priority: Medium Current Visit: No Qualifiers: Colon location: unspecified part of colon Qualified Code(s): C18.9 - Malignant neoplasm of colon, unspecified (16) Liver cirrhosis, alcoholic SNOMED Code(s): 967876325 Code(s): K70.30 - ALCOHOLIC CIRRHOSIS OF LIVER WITHOUT ASCITES Status: Chronic Priority: Medium Current Visit: No Qualifiers: Ascites presence: with ascites Qualified Code(s): K70.31 - Alcoholic cirrhosis of liver with ascites (17) Thrombocytopenia SNOMED Code(s): 922839229 Code(s): D69.6 - THROMBOCYTOPENIA, UNSPECIFIED Status: Chronic Priority: High Current Visit: No (18) Dehydration SNOMED Code(s): 10009192 Code(s): E86.0 - DEHYDRATION Status: Acute Priority: High Current Visit: No (19) Lactic acidosis SNOMED Code(s): 79205863 Code(s): E87.2 - ACIDOSIS Status: Acute Priority: High Current Visit: No (20) End of life care SNOMED Code(s): 964246465, 996884939 Code(s): Z51.5 - ENCOUNTER FOR PALLIATIVE CARE Status: Acute Priority: High Current Visit: Yes (21) History of COVID-19 SNOMED Code(s): 101713012987679194, 823680260735052078 Code(s): Z86.16 - PERSONAL HISTORY OF COVID-19 Status: Chronic Priority: Low Current Visit: No (22) CVA (cerebral vascular accident) SNOMED Code(s): 152328569 Code(s): I63.9 - CEREBRAL INFARCTION, UNSPECIFIED Status: Acute Priority: High Current Visit: Yes Qualifiers: CVA mechanism: unspecified Qualified Code(s): I63.9 - Cerebral infarction, unspecified (23) Ordaz catheter in place SNOMED Code(s): 390415550 Code(s): Z97.8 - PRESENCE OF OTHER SPECIFIED DEVICES Status: Acute Priority: Low Current Visit: Yes - Problem List Review Problem List Initiated/Reviewed/Updated: Yes - My Orders Last 24 Hours: My Active Orders 07/30/21 10:18 Vital Signs [RC] QSHIFT Consult to Case Management/Packing House Supervisor [CONS] Routine Consult to Spiritual Care [CONS] Routine Acetaminophen [Tylenol] 650 mg RECTAL Q4H PRN Resuscitation Status Routine 07/30/21 10:23 Pulse Oximetry [RC] QSHIFT 07/30/21 10:24 Bedrest [RC] BID LORazepam [Ativan] 0.5 mg PO Q6H PRN 07/30/21 10:30 Patient Status [ADT] Routine 07/30/21 Lunch Regular Diet [DIET] 07/30/21 13:15 Morphine 4 mg IVPUSH Q2H PRN 07/30/21 13:36 Atropine 1% [Atropine 1% Ophth Soln] See Dose Instructions SL Q2H PRN Scopolamine [Transderm-Scop] 1.5 mg TRDERM Q72H PRN 07/30/21 13:45 Nurse Communication: Isolation [RC] ASDIRECTED Isolation [COMM] Stat 07/30/21 19:32 Urinary Catheter Assessment [RC] ASDIRECTED 07/30/21 19:45 Insert Urinary Catheter [OM.PC] Q24H - Assessment Assessment:: 07/31/2021 66-year-old male admitted to the hospital after a failed attempt at returning home. Patient was noted to have significant altered mental status and ambulance was contacted to return patient to the ED. Original plan was for comfort cares with no further work-up however after some discussion between the family and primary care provider/hospitalist patient was sent for an MRI. This was interp reted as "1. Findings suspicious for fairly acute infarct within the left basal ganglia. 2. Abnormal diffusion within the left parietal region with central area of no abnormal diffusion. This finding correlates to the CT finding. Finding is suspicious for possible mass. 3. Diffuse increased signal within the periventricular and subcortical white matter possibly due to diffuse ischemic change which is an interval change from prior MRI. 4. Contrast would be helpful to make sure that mass suspected within the left parietal region is neoplastic. In addition, contrast would help to confirm the area of increasing low within the subcortical and periventricular white matter represent small vessel ischemic demyelination change and do not represent other abnormality." Results were discussed with family and comfort care was again confirmed. Patient noted to have multiple apneic pauses throughout the night and today. Patient also noted to have low respiratory rate. Anticipate patient demise in next 12 to 48 hours. Nursing notes patient's IV has gone bad and family is refusing another. We will switch to p.o. morphine. Will increase frequency and dosing as needed. Will consider restarting IVF patient's family decides otherwise. - Plan Plan:: End of life care Altered mental status Ordaz catheter in place * Morphine as needed for pain * Ativan as needed for anxiety * As needed Scopolamine patch for excessive secretions * As needed atropine drops sublingual for excessive secretions * Spiritual care consultation * As needed rectal Tylenol for pain/fever * Bedrest * No lab draws, imaging, IV fluids * Vital signs every shift * Case management/social work for placement * Regular diet * Hold home medications * Continue ordaz catheter for comfort care Inactive: CVA Anemia Ascites Brain tumor Diffuse large B cell lymphoma GERD (gastroesophageal reflux disease) Generalized weakness Hepatic encephalopathy History of colon resection History of prostate cancer Hyperammonemia Hyperbilirubinemia 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 Marcelino DVT prophylaxis: Not indicated - comfort care Social: Resides at home with . Multiple family members in the area. Will require placement Disposition: Patient admitted inpatient for end-of-life care. Social work working on placement unknown length of stay pending placement.
[2021-07-31] MEDS ORDERED: LORazepam 2 MG/ML SDV IVPUSH PRN ×2 (07:39→16:19)
[2021-07-31] MEDS ORDERED: Morphine 15 MG Tab PO PRN (09:56)
[2021-07-31] MEDS ORDERED: Morphine 10 MG/0.5 ML Oral Syringe PO PRN (10:02)
--- NOTE | 2021-07-31 10:58 | PCM.PN ---
- General Info Date of Service: 07/31/21 Admission Dx/Problem (Free Text): Admission Diagnosis/Problem Admission Diagnosis/Problem Altered mental status Functional Status: Reports: Pain Controlled - Patient Data Vitals - Most Recent: Last Vital Signs Temp 98.6 F 07/31/21 09:07 Pulse 95 07/31/21 09:07 Resp 12 07/31/21 09:07 BP 140/86 07/31/21 09:07 Pulse Ox 98 07/31/21 09:07 Weight - Most Recent: 154 lb 4.8 oz I&O - Last 24 Hours: Intake & Output 07/30/21 07/31/21 07/31/21 22:59 06:59 14:59 Output Total 550 Balance -550 Med Orders - Current: Current Medications Acetaminophen (Acetaminophen 650 Mg Supp) 650 mg RECTAL Q4H PRN PRN Reason: Pain (mild 1-3) Atropine Sulfate (Atropine 1% Ophth Soln 5 Ml Bottle) 0 ml SL Q2H PRN PRN Reason: Excessive secretions Lorazepam (Lorazepam 2 Mg/Ml Sdv) 1 mg IVPUSH Q4H PRN PRN Reason: Anxiety Morphine Sulfate (Morphine 10 Mg/0.5 Ml Oral Syringe) 5 mg PO Q1H PRN PRN Reason: Pain (moderate 4-6) Scopolamine (Scopolamine 1.5 Mg Transdermal Patch) 1.5 mg TRDERM Q72H PRN PRN Reason: Excessive secretions Sodium Chloride (Sodium Chloride 0.9% 10 Ml Syringe) 10 ml FLUSH ASDIRECTED PRN PRN Reason: Keep Vein Open Last Admin: 07/30/21 07:26 Dose: 10 ml Documented by: Discontinued Medications Lorazepam (Lorazepam 0.5 Mg Tab) 0.5 mg PO Q6H PRN PRN Reason: Anxiety Lorazepam (Lorazepam 2 Mg/Ml Sdv) 1 mg IVPUSH ONETIME ONE Stop: 07/30/21 14:32 Last Admin: 07/30/21 15:04 Dose: 1 mg Documented by: Morphine Sulfate (Morphine 4 Mg/Ml Syringe) 4 mg IVPUSH ONETIME ONE Stop: 07/30/21 09:05 Last Admin: 07/30/21 09:08 Dose: 4 mg Documented by: Morphine Sulfate (Morphine 4 Mg/Ml Syringe) Confirm Administered Dose 4 mg .ROUTE .STK-MED ONE Stop: 07/30/21 09:06 Last Admin: 07/30/21 09:12 Dose: Not Given Documented by: Morphine Sulfate (Morphine 4 Mg/Ml Syringe) 4 mg IVPUSH ONETIME ONE Stop: 07/30/21 10:14 Last Admin: 07/30/21 10:19 Dose: 4 mg Documented by: Morphine Sulfate (Morphine 2 Mg/Ml Syringe) 3 mg IVPUSH Q2H PRN PRN Reason: Pain (severe 7-10) Stop: 07/31/21 10:23 Last Admin: 07/30/21 12:26 Dose: 3 mg Documented by: Morphine Sulfate (Morphine 4 Mg/Ml Syringe) 4 mg IVPUSH Q2H PRN PRN Reason: Pain (severe 7-10) Stop: 07/31/21 10:23 Last Admin: 07/31/21 05:11 Dose: 4 mg Documented by: Morphine Sulfate (Morphine 15 Mg Tab) 5 mg PO Q2H PRN PRN Reason: Pain (moderate 4-6) Morphine Sulfate (Morphine 10 Mg/0.5 Ml Oral Syringe) 5 mg PO Q2H PRN PRN Reason: Pain (moderate 4-6) Last Admin: 07/31/21 10:10 Dose: 5 mg Documented by: - Exam Urinary Catheter Total Time: 0Days 1Hours - Patient Data Result Diagrams: 07/30/21 07:38 07/30/21 07:38 Sepsis Event Note - Evaluation Sepsis Screening Result: No Definite Risk - Focused Exam Vital Signs: Vital Signs Temp Pulse Resp BP Pulse Ox 07/31/21 09:07 98.6 F 95 12 140/86 98 - Problem List & Annotations (1) Altered mental status SNOMED Code(s): 048164416 Code(s): R41.82 - ALTERED MENTAL STATUS, UNSPECIFIED Status: Acute Priority: High Current Visit: Yes Qualifiers: Altered mental status type: unspecified Qualified Code(s): R41.82 - Altered mental status, unspecified (2) Anemia SNOMED Code(s): 458017128 Code(s): D64.9 - ANEMIA, UNSPECIFIED Status: Chronic Priority: Medium Current Visit: No Qualifiers: Anemia type: other cause Other causes of anemia: antineoplastic chemotherapy Qualified Code(s): D64.81 - Anemia due to antineoplastic chemotherapy; T45.1X5A - Adverse effect of antineoplastic and immunosuppressive drugs, initial encounter (3) Ascites SNOMED Code(s): 932234973 Code(s): R18.8 - OTHER ASCITES Status: Chronic Priority: High Current Visit: No Qualifiers: Ascites type: due to alcoholic cirrhosis Qualified Code(s): K70.31 - Alcoholic cirrhosis of liver with ascites (4) Brain tumor SNOMED Code(s): 342067079 Code(s): D49.6 - NEOPLASM OF UNSPECIFIED BEHAVIOR OF BRAIN Status: Chronic Priority: High Current Visit: Yes (5) Diffuse large B cell lymphoma SNOMED Code(s): 743539075, 527386916 Code(s): C83.30 - DIFFUSE LARGE B-CELL LYMPHOMA, UNSPECIFIED SITE Status: Chronic Priority: High Current Visit: Yes Qualifiers: Lymphoma site: multiple regions Qualified Code(s): C83.38 - Diffuse large B-cell lymphoma, lymph nodes of multiple sites (6) GERD (gastroesophageal reflux disease) SNOMED Code(s): 472786890 Code(s): K21.9 - GASTRO-ESOPHAGEAL REFLUX DISEASE WITHOUT ESOPHAGITIS Status: Chronic Priority: Low Current Visit: No Qualifiers: Esophagitis presence: esophagitis presence not specified Qualified Code(s): K21.9 - Gastro-esophageal reflux disease without esophagitis (7) Generalized weakness SNOMED Code(s): 21850993 Code(s): R53.1 - WEAKNESS Status: Acute Priority: High Current Visit: Yes (8) Hepatic encephalopathy SNOMED Code(s): 60948408 Code(s): K72.90 - HEPATIC FAILURE, UNSPECIFIED WITHOUT COMA Status: Acute Priority: High Current Visit: Yes (9) History of colon resection SNOMED Code(s): 285115290 Code(s): Z90.49 - ACQUIRED ABSENCE OF OTHER SPECIFIED PARTS OF DIGESTIVE TRACT Status: Chronic Priority: Low Current Visit: No (10) History of prostate cancer SNOMED Code(s): 396382782 Code(s): Z85.46 - PERSONAL HISTORY OF MALIGNANT NEOPLASM OF PROSTATE Status: Chronic Priority: Low Current Visit: No (11) Hyperammonemia SNOMED Code(s): 5620500 Code(s): E72.20 - DISORDER OF UREA CYCLE METABOLISM, UNSPECIFIED Status: Chronic Priority: Medium Current Visit: No (12) Hyperbilirubinemia SNOMED Code(s): 51358382 Code(s): E80.6 - OTHER DISORDERS OF BILIRUBIN METABOLISM Status: Chronic Priority: Medium Current Visit: Yes (13) Immunosuppression due to chronic steroid use SNOMED Code(s): 955682563 Code(s): D84.821 - IMMUNODEFICIENCY DUE TO DRUGS; T38.0X5A - ADVERSE EFFECT OF GLUCOCORT/SYNTH ANALOG, INIT; Z79.52 - MANAGER OF APPLICATION DEVELOPMENT (CURRENT) USE OF SYSTEMIC STEROIDS Status: Chronic Priority: Medium Current Visit: Yes (14) Aspergillosis SNOMED Code(s): 73121610 Code(s): B44.9 - ASPERGILLOSIS, UNSPECIFIED Status: Chronic Priority: Medium Current Visit: No (15) Colon cancer SNOMED Code(s): 458271992 Code(s): C18.9 - MALIGNANT NEOPLASM OF COLON, UNSPECIFIED Status: Chronic Priority: Medium Current Visit: No Qualifiers: Colon location: unspecified part of colon Qualified Code(s): C18.9 - Malignant neoplasm of colon, unspecified (16) Liver cirrhosis, alcoholic SNOMED Code(s): 779367623 Code(s): K70.30 - ALCOHOLIC CIRRHOSIS OF LIVER WITHOUT ASCITES Status: Chronic Priority: Medium Current Visit: No Qualifiers: Ascites presence: with ascites Qualified Code(s): K70.31 - Alcoholic cirrhosis of liver with ascites (17) Thrombocytopenia SNOMED Code(s): 832551811 Code(s): D69.6 - THROMBOCYTOPENIA, UNSPECIFIED Status: Chronic Priority: High Current Visit: No (18) Dehydration SNOMED Code(s): 56015337 Code(s): E86.0 - DEHYDRATION Status: Acute Priority: High Current Visit: No (19) Lactic acidosis SNOMED Code(s): 15977448 Code(s): E87.2 - ACIDOSIS Status: Acute Priority: High Current Visit: No (20) End of life care SNOMED Code(s): 362567265, 041205221 Code(s): Z51.5 - ENCOUNTER FOR PALLIATIVE CARE Status: Acute Priority: High Current Visit: Yes (21) History of COVID-19 SNOMED Code(s): 047893332625841240, 991264278004976296 Code(s): Z86.16 - PERSONAL HISTORY OF COVID-19 Status: Chronic Priority: Low Current Visit: No (22) CVA (cerebral vascular accident) SNOMED Code(s): 240500749 Code(s): I63.9 - CEREBRAL INFARCTION, UNSPECIFIED Status: Acute Priority: High Current Visit: Yes Qualifiers: CVA mechanism: unspecified Qualified Code(s): I63.9 - Cerebral infarction, unspecified (23) Ordaz catheter in place SNOMED Code(s): 155384623 Code(s): Z97.8 - PRESENCE OF OTHER SPECIFIED DEVICES Status: Acute Priority: Low Current Visit: Yes - My Orders Last 24 Hours: My Active Orders 07/30/21 10:18 Vital Signs [RC] QSHIFT Consult to Case Management/Customer Solutions Specialist [CONS] Routine Consult to Spiritual Care [CONS] Routine Acetaminophen [Tylenol] 650 mg RECTAL Q4H PRN Resuscitation Status Routine 07/30/21 10:23 Pulse Oximetry [RC] QSHIFT 07/30/21 10:24 Bedrest [RC] BID 07/30/21 10:30 Patient Status [ADT] Routine 07/30/21 Lunch Regular Diet [DIET] 07/30/21 13:36 Atropine 1% [Atropine 1% Ophth Soln] See Dose Instructions SL Q2H PRN Scopolamine [Transderm-Scop] 1.5 mg TRDERM Q72H PRN 07/30/21 13:45 Nurse Communication: Isolation [RC] ASDIRECTED Isolation [COMM] Stat 07/30/21 19:32 Urinary Catheter Assessment [RC] ASDIRECTED 07/30/21 19:45 Insert Urinary Catheter [OM.PC] Q24H 07/31/21 07:39 LORazepam [Ativan] 1 mg IVPUSH Q4H PRN 07/31/21 10:04 Morphine [Morphine 10 MG/0.5 ML Oral Syringe] 5 mg PO Q1H PRN - Assessment Assessment:: 07/31/2021 66-year-old male admitted to the hospital after a failed attempt at returning home. Patient was noted to have significant altered mental status and ambulance was contacted to return patient to the ED. Original plan was for comfort cares with no further work-up however after some discussion between the family and primary care provider/hospitalist patient was sent for an MRI. This was interpreted as "1. Findings suspicious for fairly acute infarct within the left basal ganglia. 2. Abnormal diffusion within the left parietal region with central area of no abnormal diffusion. This finding correlates to the CT finding. Finding is suspicious for possible mass. 3. Diffuse increased signal within the periventricular and subcortical white matter possibly due to diffuse ischemic change which is an interval change from prior MRI. 4. Contrast would be helpful to make sure that mass suspected within the left parietal region is neoplastic. In addition, contrast would help to confirm the area of increasing low within the subcortical and periventricular white matter represent small vessel ischemic demyelination change and do not represent other abnormality." Results were discussed with family and comfort care was again confirmed. Patient noted to have multiple apneic pauses throughout the night and today. Patient also noted to have low respiratory rate. Anticipate patient demise in next 12 to 48 hours. Nursing notes patient's IV has gone bad and family is refusing another. We will switch to p.o. morphine. Will increase frequency and dosing as needed. Will consider restarting IVF patient's family decides otherwise. - Plan Plan:: End of life care Altered mental status Ordaz catheter in place * Morphine as needed for pain * Ativan as needed for anxiety * As needed Scopolamine patch for excessive secretions * As needed atropine drops sublingual for excessive secretions * Spiritual care consultation * As needed rectal Tylenol for pain/fever * Bedrest * No lab draws, imaging, IV fluids * Vital signs every shift * Case management/social work for placement * Regular diet * Hold home medications * Continue ordaz catheter for comfort care Inactive: CVA Anemia Ascites Brain tumor Diffuse large B cell lymphoma GERD (gastroesophageal reflux disease) Generalized weakness Hepatic encephalopathy History of colon resection History of prostate cancer Hyperammonemia Hyperbilirubinemia 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 Marcelino DVT prophylaxis: Not indicated - comfort care Social: Resides at home with . Multiple family members in the area. Will require placement Disposition: Patient admitted inpatient for end-of-life care. Social work working on placement unknown length of stay pending placement.
[2021-07-31] MEDS: Morphine 10 MG/0.5 ML Oral Syringe PO PRN ×5 (11:10→15:56)
[2021-07-31] MEDS ORDERED: LORazepam 1 MG Tab PRN ×2 (11:15→14:18)
[2021-07-31] MEDS ORDERED: Morphine 10 MG/0.5 ML Oral Syringe PO ONE ×2 (16:32→17:00)
[2021-07-31] MEDS: Morphine 50 MG in Sodium Chloride 0.9% 45 ML IV SCH (17:40)
--- NOTE | 2021-07-31 17:50 | PCM.SN.2 ---
- Free Text/Narrative Note: Anesthesia Note: Start: 1644 Stop: 170 Anesthesia requested for IV start. 20 gauge to right hand times one attempt. Site flushed with 10ml's of NS. Thank you! Selam DARLING
[2021-08-01] MEDS: Morphine 50 MG in Sodium Chloride 0.9% 45 ML IV SCH ×2 (04:29→17:12)
--- NOTE | 2021-08-01 08:16 | PCM.PN ---
<Albert Cardenas - Last Filed: 08/01/21 10:45> - General Info Date of Service: 08/01/21 Functional Status: Reports: Pain Controlled, Urinating (very minimal ). Denies: Tolerating Diet, Ambulating, New Symptoms - Review of Systems Systems Review Comment:: Unable to obtain ROS as patient is sedated and unresponsive. Family is at bedside and states patient is much more comfortable than he was yesterday. - Patient Data Vitals - Most Recent: Last Vital Signs Temp 98.6 F 07/31/21 19:24 Pulse 90 07/31/21 19:24 Resp 12 07/31/21 19:24 BP 130/77 07/31/21 19:24 Pulse Ox 96 07/31/21 19:24 Weight - Most Recent: 69.989 kg I&O - Last 24 Hours: Intake & Output 07/31/21 08/01/21 08/01/21 22:59 06:59 14:59 Intake Total 50 Output Total 500 Balance -500 50 Med Orders - Current: Current Medications Acetaminophen (Acetaminophen 650 Mg Supp) 650 mg RECTAL Q4H PRN PRN Reason: Pain (mild 1-3) Atropine Sulfate (Atropine 1% Ophth Soln 5 Ml Bottle) 0 ml SL Q2H PRN PRN Reason: Excessive secretions Morphine Sulfate 50 mg/ Sodium (Chloride) 50 mls @ 4 mls/hr IV ASDIRECTED CHRISTA Last Admin: 08/01/21 04:29 Dose: 4 mg/hr, 4 mls/hr Documented by: Lorazepam (Lorazepam 2 Mg/Ml Sdv) 2 mg IVPUSH Q3H PRN PRN Reason: Anxiety Scopolamine (Scopolamine 1.5 Mg Transdermal Patch) 1.5 mg TRDERM Q72H PRN PRN Reason: Excessive secretions Sodium Chloride (Sodium Chloride 0.9% 10 Ml Syringe) 10 ml FLUSH ASDIRECTED PRN PRN Reason: Keep Vein Open Last Admin: 07/30/21 07:26 Dose: 10 ml Documented by: Discontinued Medications Lorazepam (Lorazepam 0.5 Mg Tab) 0.5 mg PO Q6H PRN PRN Reason: Anxiety Lorazepam (Lorazepam 2 Mg/Ml Sdv) 1 mg IVPUSH ONETIME ONE Stop: 07/30/21 14:32 Last Admin: 07/30/21 15:04 Dose: 1 mg Documented by: Lorazepam (Lorazepam 2 Mg/Ml Sdv) 1 mg IVPUSH Q4H PRN PRN Reason: Anxiety Lorazepam (Lorazepam 1 Mg Tab) 1 mg .XX Q4H PRN PRN Reason: ANXIETY/RESTLESSNESS Last Admin: 07/31/21 13:05 Dose: 1 mg Documented by: Lorazepam (Lorazepam 1 Mg Tab) 2 mg .XX Q4H PRN PRN Reason: ANXIETY/RESTLESSNESS Morphine Sulfate (Morphine 4 Mg/Ml Syringe) 4 mg IVPUSH ONETIME ONE Stop: 07/30/21 09:05 Last Admin: 07/30/21 09:08 Dose: 4 mg Documented by: Morphine Sulfate (Morphine 4 Mg/Ml Syringe) Confirm Administered Dose 4 mg .ROUTE .STK-MED ONE Stop: 07/30/21 09:06 Last Admin: 07/30/21 09:12 Dose: Not Given Documented by: Morphine Sulfate (Morphine 4 Mg/Ml Syringe) 4 mg IVPUSH ONETIME ONE Stop: 07/30/21 10:14 Last Admin: 07/30/21 10:19 Dose: 4 mg Documented by: Morphine Sulfate (Morphine 2 Mg/Ml Syringe) 3 mg IVPUSH Q2H PRN PRN Reason: Pain (severe 7-10) Stop: 07/31/21 10:23 Last Admin: 07/30/21 12:26 Dose: 3 mg Documented by: Morphine Sulfate (Morphine 4 Mg/Ml Syringe) 4 mg IVPUSH Q2H PRN PRN Reason: Pain (severe 7-10) Stop: 07/31/21 10:23 Last Admin: 07/31/21 05:11 Dose: 4 mg Documented by: Morphine Sulfate (Morphine 15 Mg Tab) 5 mg PO Q2H PRN PRN Reason: Pain (moderate 4-6) Morphine Sulfate (Morphine 10 Mg/0.5 Ml Oral Syringe) 5 mg PO Q2H PRN PRN Reason: Pain (moderate 4-6) Last Admin: 07/31/21 10:10 Dose: 5 mg Documented by: Morphine Sulfate (Morphine 10 Mg/0.5 Ml Oral Syringe) 5 mg PO Q1H PRN PRN Reason: Pain (moderate 4-6) Last Admin: 07/31/21 13:32 Dose: 5 mg Documented by: Morphine Sulfate (Morphine 10 Mg/0.5 Ml Oral Syringe) 7.5 mg PO Q1H PRN PRN Reason: Pain (moderate 4-6) Last Admin: 07/31/21 15:56 Dose: 7.5 mg Documented by: Morphine Sulfate (Morphine 10 Mg/0.5 Ml Oral Syringe) 10 mg PO ONETIME ONE Stop: 07/31/21 16:33 Last Admin: 07/31/21 18:46 Dose: Not Given Documented by: Morphine Sulfate (Morphine 10 Mg/0.5 Ml Oral Syringe) 5 mg PO ONETIME ONE Stop: 07/31/21 17:01 Last Admin: 07/31/21 17:07 Dose: 5 mg Documented by: - Exam Quality Assessment: Supplemental Oxygen, Urine Catheter. No: DVT Prophylaxis (Comfort care), Restraints Urinary Catheter Total Time: 1Days 11Hours General: Sedated, Obtunded. No: Alert, Oriented HEENT: No: Mucous Membr. Moist/[place] (Dry) Neck: Supple Lungs: Decreased Breath Sounds, Rhonchi. No: Normal Respiratory Effort (Low respiratory rate) Cardiovascular: Regular Rhythm, Tachycardia GI/Abdominal Exam: Normal Bowel Sounds, Soft, Non-Tender (Male) Exam: Deferred Extremities: Normal Inspection, No Pedal Edema Skin: Dry, Intact, Cool - Patient Data Result Diagrams: 07/30/21 07:38 07/30/21 07:38 Sepsis Event Note - Evaluation Sepsis Screening Result: No Definite Risk - Problem List & Annotations (1) Altered mental status SNOMED Code(s): 264755915 Code(s): R41.82 - ALTERED MENTAL STATUS, UNSPECIFIED Status: Acute Priority: High Current Visit: Yes Qualifiers: Altered mental status type: unspecified Qualified Code(s): R41.82 - Altered mental status, unspecified (2) Anemia SNOMED Code(s): 479212373 Code(s): D64.9 - ANEMIA, UNSPECIFIED Status: Chronic Priority: Medium Current Visit: No Qualifiers: Anemia type: other cause Other causes of anemia: antineoplastic chemotherapy Qualified Code(s): D64.81 - Anemia due to antineoplastic chemotherapy; T45.1X5A - Adverse effect of antineoplastic and immunosuppressive drugs, initial encounter (3) Ascites SNOMED Code(s): 383222607 Code(s): R18.8 - OTHER ASCITES Status: Chronic Priority: High Current Visit: No Qualifiers: Ascites type: due to alcoholic cirrhosis Qualified Code(s): K70.31 - Alcoholic cirrhosis of liver with ascites (4) Brain tumor SNOMED Code(s): 289610214 Code(s): D49.6 - NEOPLASM OF UNSPECIFIED BEHAVIOR OF BRAIN Status: Chronic Priority: High Current Visit: Yes (5) Diffuse large B cell lymphoma SNOMED Code(s): 314849122, 259292630 Code(s): C83.30 - DIFFUSE LARGE B-CELL LYMPHOMA, UNSPECIFIED SITE Status: Chronic Priority: High Current Visit: Yes Qualifiers: Lymphoma site: multiple regions Qualified Code(s): C83.38 - Diffuse large B-cell lymphoma, lymph nodes of multiple sites (6) GERD (gastroesophageal reflux disease) SNOMED Code(s): 019124877 Code(s): K21.9 - GASTRO-ESOPHAGEAL REFLUX DISEASE WITHOUT ESOPHAGITIS Status: Chronic Priority: Low Current Visit: No Qualifiers: Esophagitis presence: esophagitis presence not specified Qualified Code(s): K21.9 - Gastro-esophageal reflux disease without esophagitis (7) Generalized weakness SNOMED Code(s): 69727849 Code(s): R53.1 - WEAKNESS Status: Acute Priority: High Current Visit: Yes (8) Hepatic encephalopathy SNOMED Code(s): 96440587 Code(s): K72.90 - HEPATIC FAILURE, UNSPECIFIED WITHOUT COMA Status: Acute Priority: High Current Visit: Yes (9) History of colon resection SNOMED Code(s): 247668236 Code(s): Z90.49 - ACQUIRED ABSENCE OF OTHER SPECIFIED PARTS OF DIGESTIVE TRACT Status: Chronic Priority: Low Current Visit: No (10) History of prostate cancer SNOMED Code(s): 966955289 Code(s): Z85.46 - PERSONAL HISTORY OF MALIGNANT NEOPLASM OF PROSTATE Status: Chronic Priority: Low Current Visit: No (11) Hyperammonemia SNOMED Code(s): 6945554 Code(s): E72.20 - DISORDER OF UREA CYCLE METABOLISM, UNSPECIFIED Status: Chronic Priority: Medium Current Visit: No (12) Hyperbilirubinemia SNOMED Code(s): 23648175 Code(s): E80.6 - OTHER DISORDERS OF BILIRUBIN METABOLISM Status: Chronic Priority: Medium Current Visit: Yes (13) Immunosuppression due to chronic steroid use SNOMED Code(s): 582705165 Code(s): D84.821 - IMMUNODEFICIENCY DUE TO DRUGS; T38.0X5A - ADVERSE EFFECT OF GLUCOCORT/SYNTH ANALOG, INIT; Z79.52 - PALLIATIVE CARE COORDINATOR (CURRENT) USE OF SYSTEMIC STEROIDS Status: Chronic Priority: Medium Current Visit: Yes (14) Aspergillosis SNOMED Code(s): 47269385 Code(s): B44.9 - ASPERGILLOSIS, UNSPECIFIED Status: Chronic Priority: Medium Current Visit: No (15) Colon cancer SNOMED Code(s): 879391579 Code(s): C18.9 - MALIGNANT NEOPLASM OF COLON, UNSPECIFIED Status: Chronic Priority: Medium Current Visit: No Qualifiers: Colon location: unspecified part of colon Qualified Code(s): C18.9 - Malignant neoplasm of colon, unspecified (16) Liver cirrhosis, alcoholic SNOMED Code(s): 020554865 Code(s): K70.30 - ALCOHOLIC CIRRHOSIS OF LIVER WITHOUT ASCITES Status: Chronic Priority: Medium Current Visit: No Qualifiers: Ascites presence: with ascites Qualified Code(s): K70.31 - Alcoholic cirrhosis of liver with ascites (17) Thrombocytopenia SNOMED Code(s): 250433545 Code(s): D69.6 - THROMBOCYTOPENIA, UNSPECIFIED Status: Chronic Priority: High Current Visit: No (18) Dehydration SNOMED Code(s): 35307781 Code(s): E86.0 - DEHYDRATION Status: Acute Priority: High Current Visit: No (19) Lactic acidosis SNOMED Code(s): 21480144 Code(s): E87.2 - ACIDOSIS Status: Acute Priority: High Current Visit: No (20) End of life care SNOMED Code(s): 032255920, 374215452 Code(s): Z51.5 - ENCOUNTER FOR PALLIATIVE CARE Status: Acute Priority: High Current Visit: Yes (21) History of COVID-19 SNOMED Code(s): 808060156003163364, 190415897155945936 Code(s): Z86.16 - PERSONAL HISTORY OF COVID-19 Status: Chronic Priority: Low Current Visit: No (22) CVA (cerebral vascular accident) SNOMED Code(s): 327785668 Code(s): I63.9 - CEREBRAL INFARCTION, UNSPECIFIED Status: Acute Priority: High Current Visit: Yes Qualifiers: CVA mechanism: unspecified Qualified Code(s): I63.9 - Cerebral infarction, unspecified (23) Ordaz catheter in place SNOMED Code(s): 512732078 Code(s): Z97.8 - PRESENCE OF OTHER SPECIFIED DEVICES Status: Acute Priority: Low Current Visit: Yes - Problem List Review Problem List Initiated/Reviewed/Updated: Yes - My Orders Last 24 Hours: My Active Orders 07/31/21 16:19 LORazepam [Ativan] 2 mg IVPUSH Q3H PRN 07/31/21 16:30 Morphine 50 mg Sodium Chloride 0.9% [Normal Saline] 45 ml IV ASDIRECTED 07/31/21 19:51 Renew/Continue Urinary Catheter [OM.PC] Routine - Assessment Assessment:: 07/31/2021 66-year-old male admitted to the hospital after a failed attempt at returning home. Patient was noted to have significant altered mental status and ambulance was contacted to return patient to the ED. Original plan was for comfort cares with no further work-up however after some discussion between the family and primary care provider/hospitalist patient was sent for an MRI. This was int erpreted as "1. Findings suspicious for fairly acute infarct within the left basal ganglia. 2. Abnormal diffusion within the left parietal region with central area of no abnormal diffusion. This finding correlates to the CT finding. Finding is suspicious for possible mass. 3. Diffuse increased signal within the periventricular and subcortical white matter possibly due to diffuse ischemic change which is an interval change from prior MRI. 4. Contrast would be helpful to make sure that mass suspected within the left parietal region is neoplastic. In addition, contrast would help to confirm the area of increasing low within the subcortical and periventricular white matter represent small vessel ischemic demyelination change and do not represent other abnormality." Results were discussed with family and comfort care was again confirmed. Patient noted to have multiple apneic pauses throughout the night and today. Patient also noted to have low respiratory rate. Anticipate patient demise in next 12 to 48 hours. Nursing notes patient's IV has gone bad and family is refusing another. We will switch to p.o. morphine. Will increase frequency and dosing as needed. Will consider restarting IVF patient's family decides otherwise. 08/01/2021 66-year-old male admitted to the hospital on comfort care after he failed attempt to return home. Once on the floor he was noted to have an acute CVA after MRI was obtained. We did have some difficulty obtaining an apparent comfort level as the patient was moaning and thrashing around in bed quite frequently. Patient's IV did infiltrate and we attempted oral sedation/pain medications without much success. IV was reestablished and patient was started on a morphine drip which continues at 4 mg/h. Patient has been much more comfortable. Ordaz catheter remains in place with minimal urine output. Family is at bedside and reiterates how thankful they are that the patient is more comfortable. No labs obtained today. Unsure of length of stay. Anticipate patient demise within next few days. Family does report a sister is coming tonight to visit him. - Plan Plan:: End of life care Altered mental status Ordaz catheter in place * Continue morphine drip. Titrate as needed * Ativan as needed for anxiety * As needed Scopolamine patch for excessive secretions * As needed atropine drops sublingual for excessive secretions * Spiritual care consultation * As needed rectal Tylenol for pain/fever * Bedrest * No lab draws, imaging, IV fluids * Vital signs every shift * Case management/social work for placement * Regular diet * Hold home medications * Continue ordaz catheter for comfort care Inactive: CVA Anemia Ascites Brain tumor Diffuse large B cell lymphoma GERD (gastroesophageal reflux disease) Generalized weakness Hepatic encephalopathy History of colon resection History of prostate cancer Hyperammonemia Hyperbilirubinemia 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 Marcelino DVT prophylaxis: Not indicated - comfort care Social: Resides at home with . Multiple family members in the area. Will require placement Disposition: Patient admitted inpatient for end-of-life care. Unknown length of stay. Anticipate patient demise in the next few days. <Krystian Gant - Last Filed: 08/01/21 15:09> - Patient Data Vitals - Most Recent: Last Vital Signs Temp 36.6 C 08/01/21 10:03 Pulse 104 H 08/01/21 10:03 Resp 12 08/01/21 10:03 BP 112/61 08/01/21 10:03 Pulse Ox 85 L 08/01/21 10:03 I&O - Last 24 Hours: Intake & Output 08/01/21 08/01/21 08/01/21 06:59 14:59 22:59 Intake Total 50 0 Output Total 200 Balance 50 -200 Med Orders - Current: Current Medications Acetaminophen (Acetaminophen 650 Mg Supp) 650 mg RECTAL Q4H PRN PRN Reason: Pain (mild 1-3) Atropine Sulfate (Atropine 1% Ophth Soln 5 Ml Bottle) 0 ml SL Q2H PRN PRN Reason: Excessive secretions Morphine Sulfate 50 mg/ Sodium (Chloride) 50 mls @ 4 mls/hr IV ASDIRECTED CHRISTA Last Admin: 08/01/21 04:29 Dose: 4 mg/hr, 4 mls/hr Documented by: Lorazepam (Lorazepam 2 Mg/Ml Sdv) 2 mg IVPUSH Q3H PRN PRN Reason: Anxiety Scopolamine (Scopolamine 1.5 Mg Transdermal Patch) 1.5 mg TRDERM Q72H PRN PRN Reason: Excessive secretions Last Admin: 08/01/21 11:34 Dose: 1.5 mg Documented by: Sodium Chloride (Sodium Chloride 0.9% 10 Ml Syringe) 10 ml FLUSH ASDIRECTED PRN PRN Reason: Keep Vein Open Last Admin: 07/30/21 07:26 Dose: 10 ml Documented by: Discontinued Medications Lorazepam (Lorazepam 0.5 Mg Tab) 0.5 mg PO Q6H PRN PRN Reason: Anxiety Lorazepam (Lorazepam 2 Mg/Ml Sdv) 1 mg IVPUSH ONETIME ONE Stop: 07/30/21 14:32 Last Admin: 07/30/21 15:04 Dose: 1 mg Documented by: Lorazepam (Lorazepam 2 Mg/Ml Sdv) 1 mg IVPUSH Q4H PRN PRN Reason: Anxiety Lorazepam (Lorazepam 1 Mg Tab) 1 mg .XX Q4H PRN PRN Reason: ANXIETY/RESTLESSNESS Last Admin: 07/31/21 13:05 Dose: 1 mg Documented by: Lorazepam (Lorazepam 1 Mg Tab) 2 mg .XX Q4H PRN PRN Reason: ANXIETY/RESTLESSNESS Morphine Sulfate (Morphine 4 Mg/Ml Syringe) 4 mg IVPUSH ONETIME ONE Stop: 07/30/21 09:05 Last Admin: 07/30/21 09:08 Dose: 4 mg Documented by: Morphine Sulfate (Morphine 4 Mg/Ml Syringe) Confirm Administered Dose 4 mg .ROUTE .STK-MED ONE Stop: 07/30/21 09:06 Last Admin: 07/30/21 09:12 Dose: Not Given Documented by: Morphine Sulfate (Morphine 4 Mg/Ml Syringe) 4 mg IVPUSH ONETIME ONE Stop: 07/30/21 10:14 Last Admin: 07/30/21 10:19 Dose: 4 mg Documented by: Morphine Sulfate (Morphine 2 Mg/Ml Syringe) 3 mg IVPUSH Q2H PRN PRN Reason: Pain (severe 7-10) Stop: 07/31/21 10:23 Last Admin: 07/30/21 12:26 Dose: 3 mg Documented by: Morphine Sulfate (Morphine 4 Mg/Ml Syringe) 4 mg IVPUSH Q2H PRN PRN Reason: Pain (severe 7-10) Stop: 07/31/21 10:23 Last Admin: 07/31/21 05:11 Dose: 4 mg Documented by: Morphine Sulfate (Morphine 15 Mg Tab) 5 mg PO Q2H PRN PRN Reason: Pain (moderate 4-6) Morphine Sulfate (Morphine 10 Mg/0.5 Ml Oral Syringe) 5 mg PO Q2H PRN PRN Reason: Pain (moderate 4-6) Last Admin: 07/31/21 10:10 Dose: 5 mg Documented by: Morphine Sulfate (Morphine 10 Mg/0.5 Ml Oral Syringe) 5 mg PO Q1H PRN PRN Reason: Pain (moderate 4-6) Last Admin: 07/31/21 13:32 Dose: 5 mg Documented by: Morphine Sulfate (Morphine 10 Mg/0.5 Ml Oral Syringe) 7.5 mg PO Q1H PRN PRN Reason: Pain (moderate 4-6) Last Admin: 07/31/21 15:56 Dose: 7.5 mg Documented by: Morphine Sulfate (Morphine 10 Mg/0.5 Ml Oral Syringe) 10 mg PO ONETIME ONE Stop: 07/31/21 16:33 Last Admin: 07/31/21 18:46 Dose: Not Given Documented by: Morphine Sulfate (Morphine 10 Mg/0.5 Ml Oral Syringe) 5 mg PO ONETIME ONE Stop: 07/31/21 17:01 Last Admin: 07/31/21 17:07 Dose: 5 mg Documented by: - Patient Data Result Diagrams: 12/28/21 07:38 07/30/21 07:38 Sepsis Event Note - Focused Exam Vital Signs: Vital Signs Temp Pulse Resp BP Pulse Ox 08/01/21 10:03 36.6 C 104 H 12 112/61 85 L - Free Text/Narrative Note: I have seen and examined the patient independently of Albert Cardenas PA-C, and have discussed the case with him. I have reviewed the orders and agree with the plan of care for this patient as outlined by him. Please see orders.
[2021-08-02] MEDS: Morphine 50 MG in Sodium Chloride 0.9% 45 ML IV SCH (04:42)
--- NOTE | 2021-08-02 07:11 | PCM.PN ---
- General Info Date of Service: 08/02/21 Admission Dx/Problem (Free Text): The patient was admitted for comfort measures due to widely metastatic cancer to include brain metastases Subjective Update: The patient is a 66-year-old gentleman who had been admitted to acute hospitalization on July 30, 2021 due to altered mental status. Patient has a significant history of non-Hodgkin's lymphoma, prostate cancer and metastases to the brain and is currently in comfort measures only. The patient is also in airborne/contact isolation due to aspergillosis. The patient is obtunded and not responsive. Functional Status: Reports: Pain Controlled. Denies: New Symptoms - Review of Systems Systems Review Comment:: The patient is obtunded and review of systems is not obtainable. - Patient Data Vitals - Most Recent: Last Vital Signs Temp 37.3 C 08/01/21 19:37 Pulse 107 H 08/01/21 19:37 Resp 12 08/01/21 10:03 BP 84/52 L 08/01/21 19:37 Pulse Ox 66 L 08/01/21 19:37 Weight - Most Recent: 69.989 kg I&O - Last 24 Hours: Intake & Output 08/01/21 08/02/21 08/02/21 22:59 06:59 14:59 Intake Total 32 50 Balance 32 50 Med Orders - Current: Current Medications Acetaminophen (Acetaminophen 650 Mg Supp) 650 mg RECTAL Q4H PRN PRN Reason: Pain (mild 1-3) Atropine Sulfate (Atropine 1% Ophth Soln 5 Ml Bottle) 0 ml SL Q2H PRN PRN Reason: Excessive secretions Morphine Sulfate 50 mg/ Sodium (Chloride) 50 mls @ 4 mls/hr IV ASDIRECTED CHRISTA Last Admin: 08/02/21 04:42 Dose: 4 mg/hr, 4 mls/hr Documented by: Lorazepam (Lorazepam 2 Mg/Ml Sdv) 2 mg IVPUSH Q3H PRN PRN Reason: Anxiety Scopolamine (Scopolamine 1.5 Mg Transdermal Patch) 1.5 mg TRDERM Q72H PRN PRN Reason: Excessive secretions Last Admin: 08/01/21 11:34 Dose: 1.5 mg Documented by: Sodium Chloride (Sodium Chloride 0.9% 10 Ml Syringe) 10 ml FLUSH ASDIRECTED PRN PRN Reason: Keep Vein Open Last Admin: 07/30/21 07:26 Dose: 10 ml Documented by: Discontinued Medications Lorazepam (Lorazepam 0.5 Mg Tab) 0.5 mg PO Q6H PRN PRN Reason: Anxiety Lorazepam (Lorazepam 2 Mg/Ml Sdv) 1 mg IVPUSH ONETIME ONE Stop: 07/30/21 14:32 Last Admin: 07/30/21 15:04 Dose: 1 mg Documented by: Lorazepam (Lorazepam 2 Mg/Ml Sdv) 1 mg IVPUSH Q4H PRN PRN Reason: Anxiety Lorazepam (Lorazepam 1 Mg Tab) 1 mg .XX Q4H PRN PRN Reason: ANXIETY/RESTLESSNESS Last Admin: 07/31/21 13:05 Dose: 1 mg Documented by: Lorazepam (Lorazepam 1 Mg Tab) 2 mg .XX Q4H PRN PRN Reason: ANXIETY/RESTLESSNESS Morphine Sulfate (Morphine 4 Mg/Ml Syringe) 4 mg IVPUSH ONETIME ONE Stop: 07/30/21 09:05 Last Admin: 07/30/21 09:08 Dose: 4 mg Documented by: Morphine Sulfate (Morphine 4 Mg/Ml Syringe) Confirm Administered Dose 4 mg .ROUTE .STK-MED ONE Stop: 07/30/21 09:06 Last Admin: 07/30/21 09:12 Dose: Not Given Documented by: Morphine Sulfate (Morphine 4 Mg/Ml Syringe) 4 mg IVPUSH ONETIME ONE Stop: 07/30/21 10:14 Last Admin: 07/30/21 10:19 Dose: 4 mg Documented by: Morphine Sulfate (Morphine 2 Mg/Ml Syringe) 3 mg IVPUSH Q2H PRN PRN Reason: Pain (severe 7-10) Stop: 07/31/21 10:23 Last Admin: 07/30/21 12:26 Dose: 3 mg Documented by: Morphine Sulfate (Morphine 4 Mg/Ml Syringe) 4 mg IVPUSH Q2H PRN PRN Reason: Pain (severe 7-10) Stop: 07/31/21 10:23 Last Admin: 07/31/21 05:11 Dose: 4 mg Documented by: Morphine Sulfate (Morphine 15 Mg Tab) 5 mg PO Q2H PRN PRN Reason: Pain (moderate 4-6) Morphine Sulfate (Morphine 10 Mg/0.5 Ml Oral Syringe) 5 mg PO Q2H PRN PRN Reason: Pain (moderate 4-6) Last Admin: 07/31/21 10:10 Dose: 5 mg Documented by: Morphine Sulfate (Morphine 10 Mg/0.5 Ml Oral Syringe) 5 mg PO Q1H PRN PRN Reason: Pain (moderate 4-6) Last Admin: 07/31/21 13:32 Dose: 5 mg Documented by: Morphine Sulfate (Morphine 10 Mg/0.5 Ml Oral Syringe) 7.5 mg PO Q1H PRN PRN Reason: Pain (moderate 4-6) Last Admin: 07/31/21 15:56 Dose: 7.5 mg Documented by: Morphine Sulfate (Morphine 10 Mg/0.5 Ml Oral Syringe) 10 mg PO ONETIME ONE Stop: 07/31/21 16:33 Last Admin: 07/31/21 18:46 Dose: Not Given Documented by: Morphine Sulfate (Morphine 10 Mg/0.5 Ml Oral Syringe) 5 mg PO ONETIME ONE Stop: 07/31/21 17:01 Last Admin: 07/31/21 17:07 Dose: 5 mg Documented by: - Exam Quality Assessment: No: Supplemental Oxygen, DVT Prophylaxis Urinary Catheter Total Time: 1Days 23Hours General: No Acute Distress, Obtunded. No: Alert, Oriented HEENT: Pupils Equal. No: Pupils Reactive, EOMI, Mucous Membr. Moist/[place] (Dry) Neck: Supple, Trachea Midline Lungs: Decreased Breath Sounds, Rales, Stridor, Other (Air hunger type breathing) Cardiovascular: Regular Rate, Regular Rhythm GI/Abdominal Exam: Soft, No Distention. No: Normal Bowel Sounds (Hypoactive) (Male) Exam: Deferred Back Exam: No: Normal Inspection (Obtunded) Extremities: No: Normal Inspection Skin: Warm, Dry, Intact Neurological: No: No New Focal Deficit Psy/Mental Status: No: Alert, Normal Affect - Patient Data Result Diagrams: 07/30/21 07:38 07/30/21 07:38 Sepsis Event Note - Evaluation Sepsis Screening Result: No Definite Risk - Focused Exam Vital Signs: Vital Signs Temp Pulse BP Pulse Ox 08/01/21 19:37 37.3 C 107 H 84/52 L 66 L - Problem List Review Problem List Initiated/Reviewed/Updated: Yes - Assessment Assessment:: 07/31/2021 66-year-old male admitted to the hospital after a failed attempt at returning home. Patient was noted to have significant altered mental status and ambulance was contacted to return patient to the ED. Original plan was for comfort cares with no further work-up however after some discussion between the family and primary care provider/hospitalist patient was sent for an MRI. This was interpreted as "1. Findings suspicious for fairly acute infarct within the left basal ganglia. 2. Abnormal diffusion within the left parietal region with central area of no abnormal diffusion. This finding correlates to the CT finding. Finding is suspicious for possible mass. 3. Diffuse increased signal within the periventricular and subcortical white matter possibly due to diffuse ischemic change which is an interval change from prior MRI. 4. Contrast would be helpful to make sure that mass suspected within the left parietal region is neoplastic. In addition, contrast would help to confirm the area of increasing low within the subcortical and periventricular white matter represent small vessel ischemic demyelination change and do not represent other abnormality." Results were discussed with family and comfort care was again confirmed. Patient noted to have multiple apneic pauses throughout the night and today. Patient also noted to have low respiratory rate. Anticipate patient demise in next 12 to 48 hours. Nursing notes patient's IV has gone bad and family is refusing another. We will switch to p.o. morphine. Will increase frequency and dosing as needed. Will consider restarting IVF patient's family decides othe rwise. 08/01/2021 66-year-old male admitted to the hospital on comfort care after he failed attempt to return home. Once on the floor he was noted to have an acute CVA after MRI was obtained. We did have some difficulty obtaining an apparent comfort level as the patient was moaning and thrashing around in bed quite frequently. Patient's IV did infiltrate and we attempted oral sedation/pain medications without much success. IV was reestablished and patient was started on a morphine drip which continues at 4 mg/h. Patient has been much more comfortable. Ordaz catheter remains in place with minimal urine output. Family is at bedside and reiterates how thankful they are that the patient is more comfortable. No labs obtained today. Unsure of length of stay. Anticipate patient demise within next few days. Family does report a sister is coming tonight to visit him. - Plan Plan:: End of life care Altered mental status Ordaz catheter in place * Continue morphine drip. Titrate as needed * Ativan as needed for anxiety * As needed Scopolamine patch for excessive secretions * As needed atropine drops sublingual for excessive secretions * Spiritual care consultation * As needed rectal Tylenol for pain/fever * Bedrest * No lab draws, imaging, IV fluids * Vital signs every shift * Case management/social work for placement * Regular diet * Hold home medications * Continue ordaz catheter for comfort care Inactive: CVA Anemia Ascites Brain tumor Diffuse large B cell lymphoma GERD (gastroesophageal reflux disease) Generalized weakness Hepatic encephalopathy History of colon resection History of prostate cancer Hyperammonemia Hyperbilirubinemia 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 Marcelino DVT prophylaxis: Not indicated - comfort care Social: Resides at home with . Multiple family members in the area. Will require placement Disposition: Patient admitted inpatient for end-of-life care. Unknown length of stay. Anticipate patient demise in the next few days. 08/02/2021 The patient was admitted secondary to worsening of his mental functioning due to his brain cancer. Hospice is not available. The patient is on comfort measures only. The patient will be continued on contact isolation due to his history of respiratory aspergillosis. The patient will be maintained on comfort measures. No further testing will be ordered. I have recommended moist sponge sticks for oral care.
[2021-08-02 09:36] VITALS: BP 58/25; PULSE 100
--- NOTE | 2021-08-02 12:34 | PCM.DCSUM1 ---
Discharge Summary - Hospital Course HPI Initial Comments: Patient was admitted due to altered mental status secondary to metastatic cancer to his brain. Diagnosis: Stroke: No - Discharge Data Discharge Date: 08/02/21 Discharge Disposition: 20 Condition: - Referral to Home Health Primary Care Physician: Sidney Marcelino MD - Patient Summary/Data Consults: Consultations 07/30/21 10:18 Consult to Case Management/[facility] [CONS] Routine Consult to Spiritual Care [CONS] Routine Hospital Course: The patient is an 66-year-old gentleman who was admitted July 30, 2021 secondary to metastatic cancer to his brain and altered mental status. During the course of hospitalization the patient never regained alertness. The patient was transitioned to comfort measures only. The patient was placed on morphine for pain control and Ativan for signs of agitation and he remained comfortable. The patient's family was with him. The patient remained comfortable and quietly with his family around him. The patient was pronounced at 1145 August 02, 2021. - Discharge Plan *PRESCRIPTION DRUG MONITORING PROGRAM REVIEWED*: Not Applicable *COPY OF PRESCRIPTION DRUG MONITORING REPORT IN PATIENT DIANA: Not Applicable Home Medications: Home Meds Morphine [Morphine 20 MG/ML Oral Soln] 5 mg PO Q1H PRN #20 ml 07/29/21 [Rx] Referrals: Sidney Romano MD [Primary Care Provider] - - Discharge Summary/Plan Comment DC Time >30 min.: No Total # of Minutes for Discharge Time: 25 - Patient Data Vitals - Most Recent: Last Vital Signs Temp 39.1 C H 08/02/21 09:28 Pulse 100 08/02/21 09:28 Resp 12 08/02/21 09:28 BP 58/25 L 08/02/21 09:28 Pulse Ox 79 L 08/02/21 09:28 Weight - Most Recent: 69.989 kg I&O - Last 24 hours: Intake & Output 08/01/21 08/02/21 08/02/21 22:59 06:59 14:59 Intake Total 32 50 Balance 32 50 Med Orders - Current: Current Medications Acetaminophen (Acetaminophen 650 Mg Supp) 650 mg RECTAL Q4H PRN PRN Reason: Pain (mild 1-3) Atropine Sulfate (Atropine 1% Ophth Soln 5 Ml Bottle) 0 ml SL Q2H PRN PRN Reason: Excessive secretions Morphine Sulfate 50 mg/ Sodium (Chloride) 50 mls @ 4 mls/hr IV ASDIRECTED CHRISTA Last Admin: 08/02/21 04:42 Dose: 4 mg/hr, 4 mls/hr Documented by: Lorazepam (Lorazepam 2 Mg/Ml Sdv) 2 mg IVPUSH Q3H PRN PRN Reason: Anxiety Scopolamine (Scopolamine 1.5 Mg Transdermal Patch) 1.5 mg TRDERM Q72H PRN PRN Reason: Excessive secretions Last Admin: 08/01/21 11:34 Dose: 1.5 mg Documented by: Sodium Chloride (Sodium Chloride 0.9% 10 Ml Syringe) 10 ml FLUSH ASDIRECTED PRN PRN Reason: Keep Vein Open Last Admin: 07/30/21 07:26 Dose: 10 ml Documented by: Discontinued Medications Lorazepam (Lorazepam 0.5 Mg Tab) 0.5 mg PO Q6H PRN PRN Reason: Anxiety Lorazepam (Lorazepam 2 Mg/Ml Sdv) 1 mg IVPUSH ONETIME ONE Stop: 07/30/21 14:32 Last Admin: 07/30/21 15:04 Dose: 1 mg Documented by: Lorazepam (Lorazepam 2 Mg/Ml Sdv) 1 mg IVPUSH Q4H PRN PRN Reason: Anxiety Lorazepam (Lorazepam 1 Mg Tab) 1 mg .XX Q4H PRN PRN Reason: ANXIETY/RESTLESSNESS Last Admin: 07/31/21 13:05 Dose: 1 mg Documented by: Lorazepam (Lorazepam 1 Mg Tab) 2 mg .XX Q4H PRN PRN Reason: ANXIETY/RESTLESSNESS Morphine Sulfate (Morphine 4 Mg/Ml Syringe) 4 mg IVPUSH ONETIME ONE Stop: 07/30/21 09:05 Last Admin: 07/30/21 09:08 Dose: 4 mg Documented by: Morphine Sulfate (Morphine 4 Mg/Ml Syringe) Confirm Administered Dose 4 mg .ROUTE .STK-MED ONE Stop: 07/30/21 09:06 Last Admin: 07/30/21 09:12 Dose: Not Given Documented by: Morphine Sulfate (Morphine 4 Mg/Ml Syringe) 4 mg IVPUSH ONETIME ONE Stop: 07/30/21 10:14 Last Admin: 07/30/21 10:19 Dose: 4 mg Documented by: Morphine Sulfate (Morphine 2 Mg/Ml Syringe) 3 mg IVPUSH Q2H PRN PRN Reason: Pain (severe 7-10) Stop: 07/31/21 10:23 Last Admin: 07/30/21 12:26 Dose: 3 mg Documented by: Morphine Sulfate (Morphine 4 Mg/Ml Syringe) 4 mg IVPUSH Q2H PRN PRN Reason: Pain (severe 7-10) Stop: 07/31/21 10:23 Last Admin: 07/31/21 05:11 Dose: 4 mg Documented by: Morphine Sulfate (Morphine 15 Mg Tab) 5 mg PO Q2H PRN PRN Reason: Pain (moderate 4-6) Morphine Sulfate (Morphine 10 Mg/0.5 Ml Oral Syringe) 5 mg PO Q2H PRN PRN Reason: Pain (moderate 4-6) Last Admin: 07/31/21 10:10 Dose: 5 mg Documented by: Morphine Sulfate (Morphine 10 Mg/0.5 Ml Oral Syringe) 5 mg PO Q1H PRN PRN Reason: Pain (moderate 4-6) Last Admin: 07/31/21 13:32 Dose: 5 mg Documented by: Morphine Sulfate (Morphine 10 Mg/0.5 Ml Oral Syringe) 7.5 mg PO Q1H PRN PRN Reason: Pain (moderate 4-6) Last Admin: 07/31/21 15:56 Dose: 7.5 mg Documented by: Morphine Sulfate (Morphine 10 Mg/0.5 Ml Oral Syringe) 10 mg PO ONETIME ONE Stop: 07/31/21 16:33 Last Admin: 07/31/21 18:46 Dose: Not Given Documented by: Morphine Sulfate (Morphine 10 Mg/0.5 Ml Oral Syringe) 5 mg PO ONETIME ONE Stop: 07/31/21 17:01 Last Admin: 07/31/21 17:07 Dose: 5 mg Documented by:
== END 2021-08-02 13:45 | disposition expired | DRG 951 ==
LOC: JD.ED 06:11 → JD.MS 12:17
PROVIDERS: ADMIT Pediatrics; ATTEND Pediatrics
PROC: 8E0ZXY6 Isolation (ICD-10-PCS; principal; 2021-07-30)
DX: Z51.5 Encounter for palliative care (principal); I63.9 Cerebral infarction, unspecified; R41.82 Altered mental status, unspecified; E88.89 Other specified metabolic disorders; C83.38 Diffuse large B-cell lymphoma, lymph nodes of multiple sites; E72.20 Disorder of urea cycle metabolism, unspecified; D84.821 Immunodeficiency due to drugs; B44.9 Aspergillosis, unspecified; E87.2 Acidosis; R62.7 Adult failure to thrive; C18.9 Malignant neoplasm of colon, unspecified; C79.31 Secondary malignant neoplasm of brain; C85.90 Non-Hodgkin lymphoma, unspecified, unspecified site; K70.31 Alcoholic cirrhosis of liver with ascites; D64.81 Anemia due to antineoplastic chemotherapy; T45.1X5A Adverse effect of antineoplastic and immunosuppressive drugs, initial encounter; C25.9 Malignant neoplasm of pancreas, unspecified; Z66 Do not resuscitate; H91.90 Unspecified hearing loss, unspecified ear; R53.1 Weakness; K72.90 Hepatic failure, unspecified without coma; E66.9 Obesity, unspecified; E80.6 Other disorders of bilirubin metabolism; K21.9 Gastro-esophageal reflux disease without esophagitis; T38.0X5A Adverse effect of glucocorticoids and synthetic analogues, initial encounter; D69.6 Thrombocytopenia, unspecified; E86.0 Dehydration; D63.0 Anemia in neoplastic disease; F10.10 Alcohol abuse, uncomplicated; Z96.0 Presence of urogenital implants; Z87.2 Personal history of diseases of the skin and subcutaneous tissue; Z85.038 Personal history of other malignant neoplasm of large intestine; Z79.899 Other long term (current) drug therapy; Z68.35 Body mass index [BMI] 35.0-35.9, adult; Z87.01 Personal history of pneumonia (recurrent); Z87.438 Personal history of other diseases of male genital organs; Z87.19 Personal history of other diseases of the digestive system; Z98.890 Other specified postprocedural states; Z90.89 Acquired absence of other organs; Z90.49 Acquired absence of other specified parts of digestive tract; Y92.89 Other specified places as the place of occurrence of the external cause; K74.60 Unspecified cirrhosis of liver; Z79.52 Long term (current) use of systemic steroids; Z85.07 Personal history of malignant neoplasm of pancreas; Z85.46 Personal history of malignant neoplasm of prostate; D84.9 Immunodeficiency, unspecified; Z86.16 Personal history of COVID-19; D64.9 Anemia, unspecified
CPT/HCPCS: 36415; 71045; 80053; 83605; 84484; 85007; 85027; 96374; 96376; 99285; J2270 ×2; 36410; 51702; 70551; 70551-26; 94760; A9270-GY; J2060